=== PATIENT | female | born 1975 | race Caucasian/White ===

== ENCOUNTER 2017-08-10 14:08 | Emergency (ER) | payer OTHER, SELFPAY ==
[2017-08-10 15:31] VITALS: BP 131/82; PULSE 68; RESP 18; TEMP 36.6; O2SAT 99; BMI 28.2
[2017-08-10 15:59] LABS: UTC Influenza A Antigen Negative (Negative); UTC Influenza B Antigen Negative (Negative)
--- NOTE | 2017-08-10 16:06 | HMH.EDUTC ---
[facility] Disposition Clinical Impression: Upper respiratory infection Qualifiers: URI type: unspecified URI Qualified Code(s): J06.9 - Acute upper respiratory infection, unspecified Disposition: Home, Self-Care Condition on Discharge: Good Instructions: Sore Throat, Cough Additional Instructions: * Monitor Temp. Tylenol and/or Ibuprofen as needed. ER if fever is no less than 101 despite alternating Tylenol and Ibuprofen * Encourage fluids, water, Gatorade, powerade, pedialyte if infant/toddler/or child * Warm salt water gargles for throat irritation *Warm fluids *Sore throat lozenges *Sleep elevated *humidifier or vaporizer Lots of rest Increase fluids, water, Gatorade, powerade *Bromfed may cause drowsiness. Know how it effect you or your child. Before driving, caring for small children or sending your child to school *Your throat swab was sent to lab for culture. Those results area typically sent to your primary care physician. Be sure to follow up in 2-3 days if no improvement so they can review those results and treat if necessary If you dont have primary care I recommend you get one, but in the mean time you will have to return to a walk in clinic Follow up IMMEDIATELY for new or worsening of symptoms OR no noticeable improvement over the next 48-72 hours. 911 immediately for any life threatening symptoms such as chest pain or difficulty breathing Prescriptions: cephALEXin [Keflex 500mg Cap] 500 mg PO BID #20 cap Dextromethorphan Polistirex [Delsym] 10 ml PO Q12H PRN #200 heron.er.12h PRN Reason: Cough Referrals: Willie Ragland MD [Primary Care Provider] - Medical Decision Making Vital Signs: 08/10/17 15:31 Temperature 97.8 F Temperature Source Temporal Artery Scan Pulse Rate [Right] 68 Respiratory Rate 18 Blood Pressure [Right Arm] 131/82 Blood Pressure Mean [Right Arm] 98 Blood Pressure Source [Right Arm] Automatic Cuff Blood Pressure Position [Right Arm] Sitting 02 Sat by Pulse Oximetry 99 Oxygen Delivery Method Room Air - Lab Data Lab Results 08/10/17 15:36: Influenza Type A Ag Negative, Influenza Type B Ag Negative, Strep Scn Rapid [facility] Orders (Tests/Meds): ORDERS Category Date Time Status Strep Screen Confirmation Stat Micro 08/10/17 15:36 Received - Vinicius Inquiry Pt receiving controlled substance: No Vinicius was queried for this patient: No [facility] HPI - General Stated complaint: sore throat headache sinus Mode of Arrival: Ambulatory Source of Information: Patient Limitations: No Limitations Description of Symptoms (Recalled from Triage Doc. by RN): COUGH, CONGESTION SORE THROAT X3 DAYS, RECENT BACTRIM HEENT Symptoms (Recalled from RN notes): Yes Resp Symptoms (Recalled from RN notes): No Skin Symptoms (Recalled from RN notes): No MS Symptoms (Recalled from RN notes): No Functional Status (Recalled from RN notes): N - History of Present Illness Provider Complaint: Patient states that she has been having upper respiratory symptoms State that she thinks she has sore throat, hurts when she swallow, pain and pressure in her sinsuses and over all not feeling well - Related Data Previous Rx's Medication Instructions Recorded Dextromethorphan Polistirex 10 ml PO Q12H PRN #200 heron.er.12h 08/10/17 [Delsym] cephALEXin [Keflex 500mg Cap] 500 mg PO BID #20 cap 08/10/17 Allergies Allergy/AdvReac Type Severity Reaction Status Date / Time No Known Allergies Allergy Unverified 07/26/17 14:32 - Worker's Comp Is this a Worker's Comp case?: No [facility] History - *Social History Alcohol Intake: never - Psychiatric History Expresses thoughts of harming self/others: None Suicide Plan Description: No Plan - Constitutional Reports chills, Reports fever(s) - ENT Reports nasal congestion, Reports sinus pain - Respiratory Reports cough Physical Exam - General General appearance: alert, in no apparent distress - Expanded ENT Exam Comment:
--- NOTE | 2017-08-10 16:10 | ED_ITS ---
[facility] [place] Dis[place] Clinical Impression: Upper respiratory infection Qualifiers: URI type: unspecified URI Qualified Code(s): J06.9 - Acute upper respiratory infection, unspecified Disposition: Home, Self-Care Condition on Discharge: Good Instructions: Sore Throat, Cough Additional Instructions: * Monitor Temp. Tylenol and/or Ibuprofen as needed. ER if fever is no less than 101 despite alternating Tylenol and Ibuprofen * Encourage fluids, water, Gatorade, powerade, pedialyte if infant/toddler/or child * Warm salt water gargles for throat irritation *Warm fluids *Sore throat lozenges *Sleep elevated *humidifier or vaporizer Lots of rest Increase fluids, water, Gatorade, powerade *Bromfed may cause drowsiness. Know how it effect you or your child. Before driving, caring for small children or sending your child to school *Your throat swab was sent to lab for culture. Those results area typically sent to your primary care physician. Be sure to follow up in 2-3 days if no improvement so they can review those results and treat if necessary If you don? t have primary care I recommend you get one, but in the mean time you will have to return to a walk in clinic Follow up IMMEDIATELY for new or worsening of symptoms OR no noticeable improvement over the next 48-72 hours. 911 immediately for any life threatening symptoms such as chest pain or difficulty breathing Prescriptions: cephALEXin [Keflex 500mg Cap] 500 mg PO BID #20 cap Dextromethorphan Polistirex [Delsym] 10 ml PO Q12H PRN #200 heron.er.12h PRN Reason: Cough Referrals: Willie Ragland MD [Primary Care Provider] - Medical Decision Making Vital Signs: 08/10/17 15:31 Temperature 97.8 F Temperature Source Temporal Artery Scan Pulse Rate [Right] 68 Respiratory Rate 18 Blood Pressure [Right Arm] 131/82 Blood Pressure Mean [Right Arm] 98 Blood Pressure Source [Right Arm] Automatic Cuff Blood Pressure Position [Right Arm] Sitting 02 Sat by Pulse Oximetry 99 Oxygen Delivery Method Room Air - Lab Data Lab Results 08/10/17 15:36: Influenza Type A Ag Negative, Influenza Type B Ag Negative, Strep Scn Rapid Clinic [facility] Orders (Tests/Meds): ORDERS Category Date Time Status Strep Screen Confirmation Stat Micro 08/10/17 15:36 Received - Vinicius Inquiry Pt receiving controlled substance: No Vinicius was queried for this patient: No [facility] [place] HPI - General Stated complaint: sore throat headache sinus Mode of Arrival: Ambulatory Source of Information: Patient Limitations: No Limitations Description of Symptoms (Recalled from Triage Doc. by RN): COUGH, CONGESTION SORE THROAT X3 DAYS, RECENT BACTRIM HEENT Symptoms (Recalled from RN notes): Yes Resp Symptoms (Recalled from RN notes): No Skin Symptoms (Recalled from RN notes): No MS Symptoms (Recalled from RN notes): No Functional Status (Recalled from RN notes): N - History of Present Illness Provider Complaint: Patient states that she has been having upper respiratory symptoms State that she thinks she has sore throat, hurts when she swallow, pain and pressure in her sinsuses and over all not feeling well - Related Data Previous Rx's Medication Instructions Recorded Dextromethorphan Polistirex 10 ml PO Q12H PRN #200 heron.er.12h 08/10/17 [Delsym] cephALEXin [Keflex 500mg Cap] 500 mg PO BID #20 cap 08/10/17 Allergies
== END 2017-08-10 16:34 | disposition home or self-care (01) ==
PROVIDERS: Emergency Provider Nurse Practitioner; Family Provider Emergency Medicine; PCP Emergency Medicine
DX: J06.9 Acute upper respiratory infection, unspecified (principal); N63.20 Unspecified lump in the left breast, unspecified quadrant
CPT/HCPCS: 87276; 87430; 87804; 87880; 99202

== ENCOUNTER → 2020-11-19 12:38 | Outpatient (CLI) | payer MEDICAID, SELFPAY ==
--- NOTE | 2020-11-19 12:38 | MM_ITS ---
PROCEDURE: MM DIG SCREENING MAMM BI W/CAD Digital Breast Tomosynthesis Included CLINICAL INDICATION: screening xmg There is no personal or family history of breast cancer. There has been a previous biopsy left breast for benign disease. Patient complains of a possible fullness superior left breast which was marked with a skin marker COMPARISON: MG MAMMO DIAGNOSTIC DIGITAL TOMOSYNTHESIS LEFT W CAD from 07/16/2016 MG MAMMO DIAGNOSTIC DIGITAL TOMOSYNTHESIS BILATERAL W CAD from 09/30/2017 MG MAMMO DIAGNOSTIC DIGITAL TOMOSYNTHESIS BILATERAL W CAD from 05/15/2019 outside film TECHNIQUE: Standard CC and MLO images and 3D Tomosynthesis was obtained. R2 CAD reviewed. FINDINGS: Prominent diffuse somewhat heterogenic density seen throughout both breasts lessening the sensitivity of mammography. There is a mole marker near the axillary tail right breast. A skin marker was placed superior left breast at the site of the patient's complaint and I see no underlying mass or architectural distortion. There are no CAD markings. There is a biopsy clip 6 o'clock position left breast. There is a possible new lesion just above the nipple right breast at the 12 o'clock position best seen on egovanna images. It has somewhat irregular borders best appreciated on the CC view. Recommend the patient return for spot compression views and ultrasound of the lesion marked on the film for additional evaluation. There are no suspicious microcalcifications. IMPRESSION: Marked and diffuse breast density with possible new lesion right breast BI-RAD Category: 0 Need Additional Imaging Evaluation FOLLOW-UP: IMM Immediate Follow-up Recommended (A letter has been sent to the patient regarding results of the study.) Dictated by: Dr. Pa Qiu MD 11/21/2020 12:21 Dr. aP Qiu MD in [place] 11/21/2020 12:21
== END ==
PROVIDERS: PCP Physician Assistant; Visit Provider Nurse Practitioner Obstetrics & Gynecology
DX: Z12.31 Encounter for screening mammogram for malignant neoplasm of breast (principal)
CPT/HCPCS: 77063; 77067

== ENCOUNTER → 2020-12-22 14:37 | Outpatient (CLI) | payer MEDICAID, SELFPAY ==
--- NOTE | 2020-12-22 14:37 | US_ITS ---
PROCEDURE: MM DIG MAMM BI DX W/CAD Digital Breast Tomosynthesis Included CLINICAL INDICATION: abnormal xmg Follow-up abnormal mammogram COMPARISON: US BL US BREAST-LT COMPLETE W/AXILLA from 06/18/2016 US US BREAST LEFT COMPLETE from 07/16/2016 US US BREAST BILATERAL LIMITED from 09/30/2017 MG MAMMO DIAGNOSTIC DIGITAL TOMOSYNTHESIS BILATERAL W CAD from 09/30/2017 MG MAMMO DIAGNOSTIC DIGITAL TOMOSYNTHESIS BILATERAL W CAD from 05/15/2019 MG MM DIG SCREENING MAMM BI W/CAD from 11/19/2020 US US BREAST LT COMPLETE from 12/22/2020 US US BREAST RT COMPLETE from 12/22/2020 TECHNIQUE: Standard CC and MLO images and 3D Tomosynthesis was obtained. R2 CAD reviewed. FINDINGS: There is very dense breast tissue bilaterally which limits the sensitivity of mammography. Right breast: The area marked on the screening mammogram appears to compress out as fibroglandular tissue. On the CC view there is a 12 mm nodular density in the central aspect of the breast in the posterior 1/3 similar to the screening mammogram and may correspond to 1 of the cyst mention below. Right breast ultrasound: Numerous small cysts are present including a 6 mm cyst at 12 o'clock and a cluster of small cyst versus dilated ducts at 12 o'clock. 7 mm cyst is also noted at 12 o'clock near the nipple and a 4 mm cyst noted at 12 o'clock near the nipple. At 1 o'clock there is a complicated cyst at 14 mm x 5 mm. At 2 o'clock there are 2 cyst measuring 7 and 8 mm. At 3 o'clock there is a 6 mm cyst and a complicated 8 mm cyst with septations. At 6 o'clock there is a 12 x 8 mm complicated cyst. At 8 o'clock there is a 6 mm complicated cyst at 9 o'clock there is a 12 mm complicated cyst. At 10 o'clock there is an 11 mm complicated cyst. At 11 o'clock there is a 13 mm complicated cyst. Left breast: Very dense fibroglandular tissue. No malignant appearing mass or malignant-appearing microcalcification. There are numerous fairly well-circumscribed nodules which may correspond to cyst mention below in the ultrasound report. A 2 cm nodule is present in the 1 o'clock region. This may correspond to a cyst noted on ultrasound. In the retroareolar region there is a 17 mm nodule and in the middle 1/3 left breast there is a 12 mm nodule. Left breast ultrasound: 6 mm cyst at 12 o'clock. 7 mm cyst at 12 o'clock near the nipple. 2.4 cyst in the periareolar region at 12 o'clock. 10 mm cyst at 1 o'clock. At 2 o'clock there is a hypoechoic heterogeneous nodule well-circumscribed wider than tall with enhanced through transmission of sound. This is not demonstrated on previous ultrasounds of the left breast of 07/16/2016 and 02/15/2017 outside exams. 10 mm cyst noted at 2 o'clock. 18 mm cyst at 2 o'clock. 2 cm cyst at 3 o'clock near the nipple. 2.3 cm cyst at 6 o'clock near the nipple. 5 mm cyst at 7 o'clock. Hypoechoic nodule at 8 o'clock which may represent a complicated cyst at 8 mm. 7 mm cyst at 8 o'clock. Complicated cyst at 9 o'clock at 11 mm. 8 mm hypoechoic nodule at 9 o'clock possibly due to a complicated cyst. Two small cysts at 10 o'clock at 7 and 6 mm. 2 cm cyst at 11 o'clock. IMPRESSION: Numerous bilateral complicated cysts. There is however a solid-appearing nodule at 2 o'clock in the left breast not previously identified. Ultrasound-guided mammotome suggested. BI-RAD Category: 4 Suspicious Abnormality-Biopsy Considered FOLLOW-UP: BIO Biopsy Recommended (A letter has been sent to the patient regarding results of the study.) Dictated by: Nixon Hickman MD 12/26/2020 09:07 Nixon Hickman MD in [place] 12/26/2020 09:07
== END ==
PROVIDERS: PCP Physician Assistant; Visit Provider Nurse Practitioner Obstetrics & Gynecology
DX: R92.8 Other abnormal and inconclusive findings on diagnostic imaging of breast (principal)
CPT/HCPCS: 76641; 77062; 77066; G0279

== ENCOUNTER → 2021-02-04 09:25 | Outpatient (CLI) | payer MEDICAID, SELFPAY ==
--- NOTE | 2021-02-04 09:25 | US_ITS ---
PROCEDURE: US MAMMOTOME BX LT POST BIOPSY MAMMOGRAM CLINICAL INDICATION: Suspicious nodule left breast at 2 o'clock, abnormal ultrasound COMPARISON: MG MM DIG SCREENING MAMM BI W/CAD from 11/19/2020 MG MM CLIP PLACEMENT LT from 02/04/2021 FINDINGS: Following obtaining informed consent under aseptic conditions and local anesthesia with 1 percent buffered lidocaine and deeper anesthesia with lidocaine mixed with epinephrine, 10 gauge mammotome needle was directed into the solid nodule in the left breast at 2 o'clock. Multiple mammotome biopsies were obtained and a clip placed. The patient tolerated the procedure well without evidence of immediate complication and left radiology suite in stable condition. POST BIOPSY MAMMOGRAM was performed demonstrating the clip the in the outer aspect of the left breast at the 2 to 3 o'clock position anterior 1/3. There is diffuse increased density of the periareolar region as before. An additional clip was noted to be at the 7 o'clock region of the left breast anterior 1/3 as before. Pathology: Benign breast with fibrocystic changes including cystic dilatation of ducts with changes suggestive of ruptured cyst/duct ectasia Pseudoangiomatous stromal hyperplasia. Negative for malignancy IMPRESSION: Uneventful ultrasound-guided biopsy of the left breast showing benign findings with no evidence of malignancy. Pseudoangiomatous stromal hyperplasia was present. Recommend six-month ultrasound follow-up of the left breast regarding the pseudoangiomatous stromal hyperplasia Dictated by: Nixon Hickman MD 02/11/2021 12:27 Nixon Hickman MD in [place] 02/11/2021 12:27
== END ==
PROVIDERS: PCP Physician Assistant; Visit Provider Nurse Practitioner Obstetrics & Gynecology
DX: R92.8 Other abnormal and inconclusive findings on diagnostic imaging of breast (principal); N64.59 Other signs and symptoms in breast; N63.20 Unspecified lump in the left breast, unspecified quadrant
CPT/HCPCS: 19083; 77065; C2618

== ENCOUNTER → 2021-04-13 12:38 | Outpatient (CLI) | payer MEDICAID, SELFPAY | PROVIDERS: PCP Physician Assistant; Visit Provider Nurse Practitioner | DX: Z20.822 Contact with and (suspected) exposure to COVID-19 (principal); U07.1 COVID-19 | CPT/HCPCS: U0003 ==

== ENCOUNTER 2021-04-20 17:27 | Emergency (ER) | payer MEDICAID, SELFPAY ==
[2021-04-20 17:28] VITALS: BP 133/62; PULSE 95; RESP 16; TEMP 37.8; O2SAT 96; BMI 29.7
--- NOTE | 2021-04-20 17:42 | XR_ITS ---
PROCEDURE INFORMATION: Exam: XR Chest Exam date and time: 04/20/2021 5:42 PM Age: 46 years old Clinical indication: Shortness of breath; Patient HX: SOA; Covid x 19 days; Non-smoker; Additional info: SOB TECHNIQUE: Imaging protocol: XR of the chest. Views: 1 view. COMPARISON: No relevant prior studies available. FINDINGS: Lungs: Bilateral patchy ground-glass and consolidative airspace opacities. Pleural spaces: No pleural effusion. No pneumothorax. Heart/Mediastinum: Cardiomediastinal silouhette is within normal limits. Bones/joints: No acute osseous abnormality. Soft tissues: Unremarkable. IMPRESSION: Bilateral patchy airspace opacities, compatible with multifocal pneumonia. Please see comments below. COMMENTS: Pulmonary findings described above are compatible with commonly reported imaging features of COVID-19 pneumonia. Other processes such as other viral pneumonias (i.e. influenza), organizing pneumonia, drug toxicity and connective tissue disease can cause a similar imaging pattern. (Reference: Shamar) REFERENCES: Shamar Salazar et al., Radiological Society of [place] Expert Consensus Statement on Reporting Chest CT Findings Related to COVID-19. Endorsed by the Society of Thoracic Radiology, the [place] [employer], and RSNA. Published October 31, 2019.
[2021-04-20 18:11] LABS: Basophils % 0.1 % (0.1-2.0); Eosinophils % 0.1 % (0.1-12.0); Hematocrit 44.6 % (37.0-47.0); Hemoglobin 14.1 g/dL (12.2-16.2); Lymphocytes # 1.3 K/mm3 (0.7-4.5); Lymphocytes % 10.3 % (10-50); Mean Corpuscular HGB Conc 31.5 g/dL (31.8-35.4); Mean Corpuscular Hemoglobin 27.3 pg (27.0-31.2); Mean Corpuscular Volume 86.5 fl (81-99); Monocytes # 0.5 K/mm3 (0.1-1.0); Monocytes % 3.9 % (1.7-9.3); Neutrophils # 10.4 K/mm3 (1.8-7.8); Neutrophils % 85.6 % (37.0-80.0); Platelet Count 278 K/mm3 (142-424); Red Blood Count 5.15 M/mm3 (4.20-5.40); Red Cell Distribution Width 13.1 % (11.5-17.5); White Blood Count 12.1 K/mm3 (4.8-10.8)
[2021-04-20 18:13] LABS: MANUAL DIFFERENTIAL MANUAL DIFFERENTIAL (MANUAL DIFF)
[2021-04-20 18:21] LABS: Chloride 102 mmol/L (98-107); Potassium 3.6 mmoL/L (3.5-5.1); Sodium 139 mmol/L (136-145)
[2021-04-20 18:23] LABS: Blood Urea Nitrogen 14 mg/dl (7-17); Creatinine Clearance Estimated 163 mL/min (50-200); Estimated Glomerular Filt Rate 109 ml/min (>60); GFR (African American) 131 ML/MIN (>60)
[2021-04-20 18:24] LABS: Alanine Aminotransferase 37 U/L (12-78); Albumin/Globulin Ratio 1.1 (1.1-1.8); Alkaline Phosphatase 77 U/L (38-126); Anion Gap 15.6 mEq/L (5-15); Aspartate Amino Transferase 35 U/L (14-36); Bilirubin,Total 0.5 mg/dl (0.2-1.3); Calcium 8.9 mg/dl (8.4-10.2); Carbon Dioxide 25 mmol/L (22.0-30.0); Globulin 3.6 g/dL (1.3-3.2); Glucose 146 mg/dl (74-100); Total Protein,Serum 7.6 g/dl (6.3-8.2)
--- NOTE | 2021-04-20 18:59 | HMH.EDGENADL ---
ED Disposition Clinical Impression: Pneumonia due to COVID-19 virus Disposition: Home, Self-Care Condition on Discharge: Good Additional Instructions: Follow-up with your PCP tomorrow regarding monoclonal antibody treatment. Return to emergency department for fever, shortness of breath, chest pain. Prescriptions: Amoxicillin [Amoxicillin 875MG Tab] 875 mg PO Q12H #14 tab Transmission Status: Pending to [facility] Referrals: Luba Soto PA [Primary Care Provider] - Time of Disposition: 19:03 - Critical Care Critical Care Time: No Attestation: On 04/20/21, the high probability of a clinically significant, sudden or life threatening deterioration of the following system(s) required my full and direct attention, intervention and personal management. The time I documented below is in addition to time spent performing reported procedures but includes the following listed in this critical care notation. Medical Decision Making - Medical Records Medical records reviewed: Yes: I reviewed the patient's medical records. - Vinicius Inquiry Pt receiving controlled substance: No Vital Signs: 04/20/21 17:28 Temperature 100.1 F H Temperature Source Oral Pulse Rate [Right] 95 H Respiratory Rate 16 Blood Pressure [Right Arm] 133/62 Blood Pressure Mean [Right Arm] 85 02 Sat by Pulse Oximetry 96 Oxygen Delivery Method Room Air - Lab Data Lab results reviewed: Yes: I reviewed the patient's lab results. Lab Results 04/20/21 17:55: WBC 12.1 H, RBC 5.15, Hgb 14.1, Hct 44.6, MCV 86.5, MCH 27.3, MCHC 31.5 L, RDW 13.1, Plt Count 278, MPV 8.0, Neut % (Auto) 85.6 H, Lymph % (Auto) 10.3, [place] % (Auto) 3.9, Eos % (Auto) 0.1, Baso % (Auto) 0.1, Neut # (Auto) 10.4 H, Lymph # (Auto) 1.3, [place] # (Auto) 0.5, Eos # (Auto) 0.0, Baso # (Auto) 0.0 04/20/21 17:55: Sodium 139, Potassium 3.6, Chloride 102, Carbon Dioxide 25, Anion Gap 15.6 H, BUN 14, Creatinine 0.60, Estimated Creat Clear 163, Estimated GFR 109, Est GFR ( Amer) 131, Glucose 146 H, Calcium 8.9, Total Bilirubin 0.5, AST 35, ALT 37, Alkaline Phosphatase 77, Total Protein 7.6, Albumin 4.0, Globulin 3.6 H, Albumin/Globulin Ratio 1.1 Result diagrams: 04/20/21 17:55 04/20/21 17:55 Orders (Tests/Meds): ED MEDICATIONS Generic Name Dose Route Start Last Admin Trade Name Alexandra PRN Reason Stop Dose Admin Lactated Ringer's 1,000 mls @ 999 mls/hr 04/20/21 17:45 04/20/21 17:51 Lactated Ringer's 1000 Ml Bag IV 04/20/21 18:45 999 mls/hr .[id number] JANES Administration ORDERS Category Date Time Status Complete Blood Count Auto Diff Stat Lab 04/20/21 17:55 Results - Radiology Data #1 Image(s): Chest Image Reviewed: Yes I reviewed the patient's radiology results Preliminary Findings: Abnormal (Concern for Covid pneumonia) Medical Decision Narrative: 46yo F evaluated for worsening shortness of breath with known Covid. Patient's x-ray is concerning for Covid pneumonia. Laboratory results reveal white blood cell count of 12. Otherwise labs are unremarkable. Patient is already completed a Z-Fish. Will prescribe amoxicillin and have her follow-up with her PCP. Also discussed monoclonal antibodies but the patient would like time to think about this and discuss it with her PCP. General Adult HPI - General Chief complaint: Fever Stated complaint: covid + symptoms worse Time Seen by Provider: 04/20/21 18:30 Mode of Arrival: Ambulatory Limitations: No Limitations Description of Symptoms (Recalled from ER Triage Doc. by RN): COVID+ X10 DAYS, C/O INCREASED WEAKNESS, FEVER & CHILLS. DENIES SOB/CP - History of Present Illness HPI narrative: 46yo F that denies significant past medical history reports the emergency department with Covid. Patient test positive around . She felt more short of breath so came to the emergency department for further evaluation. She denies fever, nausea/vomiting/diarrhea. She repo
[2021-04-20 19:11] VITALS: BP 125/71; PULSE 90; RESP 20; TEMP 37.8; O2SAT 96
[2021-04-20 19:22] LABS: Anisocytosis 1+; Lymphocytes % 6 % (10-50); Monocytes % 6 % (2-9); Neutrophils % 88 % (42-76); Platelet Estimate Normal; Total Cells Counted 100
== END 2021-04-20 19:12 | disposition home or self-care (01) ==
PROVIDERS: Emergency Provider Family Medicine; PCP Physician Assistant
DX: U07.1 COVID-19 (principal); J12.82 Pneumonia due to coronavirus disease 2019
CPT/HCPCS: 71045; 80053; 85007; 85025; 96365; 99283

== ENCOUNTER → 2021-04-21 14:06 | Outpatient (CLI) | payer MEDICAID, SELFPAY ==
[2021-04-21] VITALS (7 sets, daily range): BP systolic 110–134; BP diastolic 50–84; PULSE 72–94; RESP 18; O2SAT 94–96
== END ==
PROVIDERS: PCP Physician Assistant; Visit Provider Physician Assistant
DX: U07.1 COVID-19 (principal)
CPT/HCPCS: 96365

== ENCOUNTER → 2021-05-05 14:31 | Outpatient (CLI) | payer MEDICAID, SELFPAY ==
--- NOTE | 2021-05-05 14:35 | XR_ITS ---
PROCEDURE: XR CHEST 2V CLINICAL HISTORY: f/u pneumonia (COVID + /6) COMPARISON: CR XR CHEST PORTABLE from 04/20/2021 FINDINGS: The cardiomediastinal silhouette and pulmonary vascularity are within normal limits. Multifocal bilateral infiltrates once again noted with a mixed response slightly improved in the right lower lobe and probably unchanged in the right upper lobe and left perihilar region. There are some minimal atelectatic changes now present in the right upper lobe. No effusions. No acute bony abnormalities. IMPRESSION: Bilateral pneumonia slightly improved in the right lower lobe and unchanged otherwise now with some mild atelectatic change in the right upper lobe Dictated by: Nixon Hickman MD 05/05/2021 15:10 Nixon Hickman MD in [place] 05/05/2021 15:10
== END ==
PROVIDERS: PCP Physician Assistant; Visit Provider Physician Assistant
DX: U07.1 COVID-19 (principal); J12.82 Pneumonia due to coronavirus disease 2019
CPT/HCPCS: 71046

== ENCOUNTER → 2021-08-11 14:46 | Outpatient (CLI) | payer MEDICAID, SELFPAY ==
--- NOTE | 2021-08-11 14:47 | US_ITS ---
PROCEDURE INFORMATION: Exam: US Left Breast, Complete Exam date and time: 08/11/2021 2:47 PM Age: 46 years old Clinical indication: Short-term follow-up for benign biopsy TECHNIQUE: Imaging protocol: Complete ultrasound of all four quadrants of the Left breast and the retroareolar regions, including ultrasound of the axilla when performed. COMPARISON: 1. US BREAST LT COMPLETE 12/22/2020 3:03 PM 2. Sonogram dated 07/16/2016 FINDINGS: Breast: Sonographic images of the left breast including the retroareolar region, all 4 quadrants and the axilla demonstrates widespread cystic change. The cysts range in size from several mm to a termite control service representative dominant cyst in the 2 o'clock axis measuring 1.8 cm in greatest dimension. Sleep previously biopsied left upper outer quadrant mass is not seen today's examination. In the left 12 o'clock periareolar region is a long-term stable and therefore benign hypoechoic mass measuring 0.6 x 0.5 x 0.4 cm in dimension. No architectural distortion or acoustical shadowing. No skin thickening or axillary adenopathy. IMPRESSION: No sonographic evidence of malignancy. Annual mammographic screening is recommended in November 2021 unless otherwise clinically indicated. ASSESSMENT: BI-RADS Category 2: Benign
== END ==
PROVIDERS: PCP Physician Assistant; Visit Provider Surgery
DX: N64.89 Other specified disorders of breast (principal)
CPT/HCPCS: 76641

== ENCOUNTER 2021-11-06 15:06 | Emergency (ER) | payer MEDICAID, SELFPAY ==
[2021-11-06 15:15] VITALS: BP 137/81; PULSE 91; RESP 19; TEMP 36.8; O2SAT 98; BMI 32.1
[2021-11-06 15:37] LABS: UTC Influenza A Antigen Negative (Negative); UTC Influenza B Antigen Negative (Negative)
--- NOTE | 2021-11-06 15:38 | HMH.EDUTC ---
[facility] [place] Clinical Impression: Upper respiratory infection Qualifiers: URI type: unspecified URI Qualified Code(s): J06.9 - Acute upper respiratory infection, unspecified Disposition: Home, Self-Care Condition on Discharge: Good Instructions: DI for Sinusitis, Sinusitis, Azithromycin Additional Instructions: *Monitor Temp, Over the counter Motrin or Tylenol as directed/as needed Tylenol every 4 hours and Motrin every 6 hours (as long as your family doctor has told you that you can take it) for fever or pain. and straight to ER if unable to lower temp less than 101.0 after medication given *Warm salt water gargles may help to soothe the throat *Throat Lozenges *Warm fluids like tea with honey may help to soothe the throat *Sleep elevated *Humidifier/Vaporizer *Flonase 2 sprays in each nostril daily but be aware that it may take 2-3 days before you notice improvement Take medication as prescribed Return if needed Straight to ER if any life threatening symptoms Follow up IMMEDIATELY for new or worsening symptoms or no Noticeable improvement over the next 48-72 hours. 911 for difficulty breathing or swallowing Prescriptions: predniSONE [Deltasone 10mg tablet] 10 mg PO BID 5 Days #10 tab Transmission Status: Pending to [facility] Azithromycin [Z-Fish 250mg Tab] 250 mg PO DIRECTED #6 tab Transmission Status: Pending to [facility] Referrals: Luba Soto PA [Primary Care Provider] - As needed Time of Disposition: 15:44 Medical Decision Making - Vinicius Inquiry Pt receiving controlled substance: No Vinicius was queried for this patient: No Vital Signs: 11/06/21 15:15 Temperature 98.3 F Temperature Source Oral Pulse Rate [Right Brachial] 91 H Respiratory Rate 19 Blood Pressure [Right Arm] 137/81 Blood Pressure Mean [Right Arm] 99 Blood Pressure Source [Right Arm] Automatic Cuff Blood Pressure Position [Right Arm] Sitting 02 Sat by Pulse Oximetry 98 Oxygen Delivery Method Room Air - Lab Data Lab results reviewed: Yes: I reviewed the patient's lab results. Lab Results 11/06/21 15:13: Influenza Type A Ag Negative, Influenza Type B Ag Negative [facility] [place] - General Stated complaint: sore throat, cough, congestion Time Seen by Provider: 11/06/21 15:38 Mode of Arrival: Ambulatory Source of Information: Patient Limitations: No Limitations Description of Symptoms (Recalled from Triage Doc. by RN): PATIENT C/O SORE THROAT, COUGH, RUNNY NOSE, CHEST CONGESTION, AND BACK ACHE X 2 DAYS HEENT Symptoms (Recalled from RN notes): Yes Resp Symptoms (Recalled from RN notes): Yes Skin Symptoms (Recalled from RN notes): No MS Symptoms (Recalled from RN notes): No Functional Status (Recalled from RN notes): WNL - History of Present Illness Provider Complaint: Patient state that she has been having sinus pain and pressure for about a week States that she has been having cough, sore throat, sinus congestion and pressure cough States that she is having drainage in the back of her throat that has her throat irritated and ibarra when she coughs or takes a deep breath - Related Data Previous Rx's Medication Instructions Recorded Azithromycin [Z-Fish 250mg Tab] 250 mg PO DIRECTED #6 tab 11/06/21 predniSONE [Deltasone 10mg tablet] 10 mg PO BID 5 Days #10 tab 11/06/21 Allergies Allergy/AdvReac Type Severity Reaction Status Date / Time No Known Allergies Allergy Verified 08/26/21 15:03 - Worker's Comp Is this a Worker's Comp case?: No [facility] History - Hepatitis A Screen Drug use history?: No High risk sexual behaviors?: No History of sexually transmitted infection?: No Currently employed?: No Childcare worker?: No Do you have indoor plumbing?: Yes Do you have electricity?: Yes Attestation statement:: This patient has been screened for Hepatitis A risk factors. I have reviewed the patient's past medical history: Yes Laterality Cases: Left: B
[2021-11-06 15:49] VITALS: BP 137/81; PULSE 91; RESP 19; TEMP 36.8; O2SAT 98
== END 2021-11-06 15:58 | disposition home or self-care (01) ==
PROVIDERS: Emergency Provider Nurse Practitioner; PCP Physician Assistant
DX: J06.9 Acute upper respiratory infection, unspecified (principal); J02.9 Acute pharyngitis, unspecified; Z87.891 Personal history of nicotine dependence
CPT/HCPCS: 87804; 99212; G0463

== ENCOUNTER → 2021-11-26 15:51 | Outpatient (CLI) | payer MEDICAID, SELFPAY ==
--- NOTE | 2021-11-26 15:57 | ECG_ITS ---
APPROVED REPORT Exam: Resting ECG HR:91 bpm ECG Measurements Heart Rate 91 AXES TX 143 P 47 QRSd 93 QRS 80 QT 339 T 6 QTc 388 Conclusion SINUS RHYTHM NONSPECIFIC T-WAVE ABNORMALITY BORDERLINE ECG UNCONFIRMED REPORT Electronically signed by : Kike Esteban MD 11/28/2021 12:19:53
--- NOTE | 2021-11-26 16:00 | XR_ITS ---
PROCEDURE INFORMATION: Exam: XR Chest Exam date and time: 11/26/2021 4:01 PM Age: 46 years old Clinical indication: Cough; Additional info: Chest pain, h/o covid in sept TECHNIQUE: Imaging protocol: XR of the chest. Views: 2 views. COMPARISON: CR XR CHEST 2V 05/05/2021 2:44 PM FINDINGS: Lungs: Hyperinflation and mild interstitial prominence. No acute infiltrate. Pleural spaces: No pleural effusion. Heart/Mediastinum: No cardiomegaly. Bones/joints: Unremarkable. IMPRESSION: Hyperinflation and mild interstitial prominence. No acute infiltrate.
[2021-11-26 17:49] LABS: Alanine Aminotransferase 22 U/L (12-78); Albumin Level 4.4 g/dl (3.5-5.0); Albumin/Globulin Ratio 1.8 (1.1-1.8); Alkaline Phosphatase 89 U/L (38-126); Anion Gap 13.5 mEq/L (5-15); Aspartate Amino Transferase 27 U/L (14-36); Bilirubin,Total 0.5 mg/dl (0.2-1.3); Blood Urea Nitrogen 19 mg/dl (7-17); Calcium 9.1 mg/dl (8.4-10.2); Carbon Dioxide 23 mmol/L (22.0-30.0); Chloride 107 mmol/L (98-107); Chol/HDL Ratio 6.2 (1-3.5); Cholesterol 237 mg/dl (140-200); Estimated Glomerular Filt Rate 109 ml/min (>60); GFR (African American) 131 ML/MIN (>60); Globulin 2.4 g/dL (1.3-3.2); Glucose 129 mg/dl (74-100); HDL Cholesterol 38 mg/dl (40-60); Potassium 3.5 mmoL/L (3.5-5.1); Sodium 140 mmol/L (136-145); Total Protein,Serum 6.8 g/dl (6.3-8.2); Triglycerides 154 mg/dl (30-150); VLDL Cholesterol 31 mg/dL (0-40)
[2021-11-26 18:01] LABS: Basophils # 0.1 K/mm3 (0-0.2); Basophils % 0.6 % (0.1-2.0); Eosinophils # 0.1 K/mm3 (0.0-0.4); Eosinophils % 1.6 % (0.1-12.0); Hematocrit 43.3 % (37.0-47.0); Hemoglobin 14.1 g/dL (12.2-16.2); Lymphocytes # 1.8 K/mm3 (0.7-4.5); Lymphocytes % 20.8 % (10-50); Mean Corpuscular HGB Conc 32.7 g/dL (31.8-35.4); Mean Corpuscular Hemoglobin 28.6 pg (27.0-31.2); Mean Corpuscular Volume 87.7 fl (81-99); Mean Platelet Volume 9.1 fl (7.4-10.4); Monocytes # 0.5 K/mm3 (0.1-1.0); Monocytes % 5.8 % (1.7-9.3); Neutrophils # 6.2 K/mm3 (1.8-7.8); Neutrophils % 71.2 % (37.0-80.0); Platelet Count 281 K/mm3 (142-424); Red Blood Count 4.94 M/mm3 (4.20-5.40); Red Cell Distribution Width 13.6 % (11.5-17.5); White Blood Count 8.8 K/mm3 (4.8-10.8)
[2021-11-26 18:08] LABS: 25-OH Vitamin D, Total 25.6 ng/mL (30-100)
[2021-11-26 18:21] LABS: Thyroid Stimulating Hormone 0.69 uIU/mL (0.465-4.68)
[2021-11-26 18:40] LABS: Vitamin B12 660 pg/mL (239-931)
== END ==
PROVIDERS: PCP Physician Assistant; Visit Provider Physician Assistant
DX: R07.9 Chest pain, unspecified (principal); R22.1 Localized swelling, mass and lump, neck; E55.9 Vitamin D deficiency, unspecified
CPT/HCPCS: 71046; 80053; 80061; 82306; 82607; 84443; 85025; 93005

== ENCOUNTER → 2021-11-26 16:45 | Outpatient (CLI) | payer MEDICAID, SELFPAY ==
[2021-11-27 09:35] LABS: Hemoglobin A1C 5.4 % (4.0-6.0)
== END ==
PROVIDERS: PCP Physician Assistant; Visit Provider Physician Assistant
DX: R73.09 Other abnormal glucose (principal)
CPT/HCPCS: 83036

== ENCOUNTER 2021-12-09 22:28 | Emergency (ER) | payer MEDICAID, SELFPAY ==
[2021-12-09 22:30] VITALS: BP 178/88; PULSE 78; RESP 16; TEMP 37; O2SAT 98; BMI 30.4
--- NOTE | 2021-12-09 22:36 | ECG_ITS ---
APPROVED REPORT Exam: Resting ECG HR:93 bpm ECG Measurements Heart Rate 93 AXES [place] 149 P 56 QRSd 99 QRS 71 QT 340 T 52 QTc 391 Conclusion SINUS RHYTHM NORMAL ECG UNCONFIRMED REPORT Electronically signed by : Kike Esteban MD 12/10/2021 10:14:47
--- NOTE | 2021-12-09 22:54 | CT_ITS ---
PROCEDURE INFORMATION: Exam: CT Abdomen And Pelvis Without Contrast Exam date and time: 12/09/2021 11:18 PM Age: 46 years old Clinical indication: Abdominal pain; Localized; Right upper quadrant (ruq); Additional info: Right upper quad pain TECHNIQUE: Imaging protocol: Computed tomography of the abdomen and pelvis without contrast. Radiation optimization: All CT scans at this facility use at least one of these dose optimization techniques: automated exposure control; mA and/or kV adjustment per patient size (includes targeted exams where dose is matched to clinical indication); or iterative reconstruction. COMPARISON: CR XR CHEST 2V 11/26/2021 4:01 PM FINDINGS: Liver: Normal. No mass. Gallbladder and bile ducts: Normal. No calcified stones. No ductal dilation. Pancreas: Normal. No ductal dilation. Spleen: Normal. No splenomegaly. Adrenal glands: Normal. No mass. Kidneys and ureters: Normal. No hydronephrosis. Stomach and bowel: Unremarkable. No obstruction. No mucosal thickening. Appendix: No evidence of appendicitis. Intraperitoneal space: Unremarkable. No free air. No significant fluid collection. Vasculature: Unremarkable. No abdominal aortic aneurysm. Lymph nodes: Unremarkable. No enlarged lymph nodes. Urinary bladder: Unremarkable as visualized. Reproductive: There is a complex hemorrhagic left ovarian cyst 4.7 cm. Bones/joints: Unremarkable. No acute fracture. Soft tissues: Unremarkable. IMPRESSION: 1. 4.7 cm hemorrhagic left ovarian cyst. 2. No additional acute findings in the abdomen pelvis
[2021-12-09 23:00] LABS: Microscopic, Urine URINE MICROSCOPIC (MICROSCOPIC)
[2021-12-09 23:08] LABS: Appearance,Urine CLEAR (Clear); Bilirubin,Urine Negative (Negative); Blood, Urine 2+ (Negative); Color,Urine YELLOW (Yellow); Glucose,Urine (UA) Negative (Negative); Ketones,Urine Negative (Negative); Leukocyte Esterase,Urine 1+ (Negative); Nitrate,Urine Negative (Negative); Protein,Urine Negative (Negative); Specific Gravity, Urine 1.025 (1.005-1.030); Urobilinogen,Urine 0.2 EU/dl (0.2)
[2021-12-09 23:09] LABS: Urine Pregnancy, HCG Qual. Negative (Negative)
--- NOTE | 2021-12-09 23:14 | HMH.EDNVD ---
ED Disposition Clinical Impression: Abdominal pain Qualifiers: Abdominal location: right upper quadrant Qualified Code(s): R10.11 - Right upper quadrant pain Disposition: Home, Self-Care Condition on Discharge: Good Instructions: DI for Acute Abdominal Pain Additional Instructions: call pcp for follow up Referrals: Luba Soto PA [Primary Care Provider] - - Critical Care Critical Care Time: No Attestation: On 12/09/21, the high probability of a clinically significant, sudden or life threatening deterioration of the following system(s) required my full and direct attention, intervention and personal management. The time I documented below is in addition to time spent performing reported procedures but includes the following listed in this critical care notation. Medical Decision Making - Medical Records Medical records reviewed: Yes: I reviewed the patient's medical records. - Vinicius Inquiry Pt receiving controlled substance: No Vital Signs: 12/09/21 22:30 Temperature 98.6 F Temperature Source Oral Pulse Rate [Right] 78 Respiratory Rate 16 Blood Pressure [Right Arm] 178/88 H Blood Pressure Mean [Right Arm] 118 Blood Pressure Source [Right Arm] Automatic Cuff Blood Pressure Position [Right Arm] Sitting 02 Sat by Pulse Oximetry 98 Oxygen Delivery Method Room Air - Lab Data Lab results reviewed: Yes: I reviewed the patient's lab results. Lab Results 12/09/21 22:48: Urine HCG, Qual Negative 12/09/21 22:56: Urine Color Yellow, Urine Appearance Clear, Urine pH 6.0, Ur Specific [place] 1.025, Urine Protein Negative, Urine Glucose (UA) Negative, Urine Ketones Negative, Urine Blood 2+, Urine Nitrate Negative, Urine Bilirubin Negative, Urine Urobilinogen 0.2, Ur Leukocyte Esterase 1+ A, Urine RBC 5-10, Urine WBC 3-5, Ur Squamous Epith Cells 3-5, Urine Bacteria 1+ 12/09/21 23:08: WBC 11.6 H, RBC 5.16, Hgb 14.7, Hct 46.8, MCV 90.7, MCH 28.5, MCHC 31.4 L, RDW 13.9, Plt Count 289, MPV 8.0, Neut % (Auto) 67.4, Lymph % (Auto) 24.0, [place] % (Auto) 6.2, Eos % (Auto) 2.4, Baso % (Auto) 3.6 H, Neut # (Auto) 7.8, Lymph # (Auto) 2.8, [place] # (Auto) 0.7, Eos # (Auto) 0.3, Baso # (Auto) 0.4 H 12/09/21 23:08: Sodium 137, Potassium 3.8, Chloride 103, Carbon Dioxide 26, Anion Gap 11.8, BUN 19 H, Creatinine 0.80, Estimated Creat Clear 129, Estimated GFR 78, Est GFR ( Amer) 94, Glucose 113 H, Calcium 9.7, Total Bilirubin 0.5, AST 29, ALT 23, Alkaline Phosphatase 107, C-Reactive Protein 9.1 H, Total Protein 7.3, Albumin 4.4, Globulin 2.9, Albumin/Globulin Ratio 1.5, Amylase 56, Lipase 95 Result diagrams: 12/09/21 23:08 12/09/21 23:08 Orders (Tests/Meds): ED MEDICATIONS Generic Name Dose Route Start Last Admin Trade Name Freq PRN Reason Stop Dose Admin Lactated Ringer's 1,000 mls @ 999 mls/hr 12/09/21 23:00 12/09/21 22:56 Lactated Ringer's 1000 Ml Bag IV 12/10/21 00:00 999 mls/hr .Q1H1M JANES Administration ORDERS Category Date Time Status Urine Culture Stat Micro 12/09/21 22:56 Received - CT Data CT Scan: Abdomen, Pelvis Time Received: 00:[address] Reviewed: Yes: I have viewed the radiologist's interpretation Preliminary Findings: Abnormal - ECG Data Tracing #1 Normal Sinus Rhythm: Yes Ischemic changes: non-specific ST-T wave changes Medical Decision Narrative: stable exam and labs and will follow up as op Nausea/Vomiting/Diarrhea HPI - General Chief complaint: Abdominal Pain Stated complaint: upper abd pain, back pain, throat swelling Time Seen by Provider: 12/09/21 23:14 Mode of Arrival: Ambulatory Source of Information: Patient, Medical Record Limitations: No Limitations Description of Symptoms (Recalled from ER Triage Doc. by RN): Pt advises around 6pm she started having some upper right quad pain that progressively got worse as the night progressed. Denies any n/v/d. Also c/o pain in the right shoulder - History of Present Illness HPI Narrative: rt upper abd
[2021-12-09 23:27] LABS: Basophils # 0.4 K/mm3 (0-0.2); Basophils % 3.6 % (0.1-2.0); Eosinophils # 0.3 K/mm3 (0.0-0.4); Eosinophils % 2.4 % (0.1-12.0); Hematocrit 46.8 % (37.0-47.0); Hemoglobin 14.7 g/dL (12.2-16.2); Lymphocytes # 2.8 K/mm3 (0.7-4.5); Mean Corpuscular HGB Conc 31.4 g/dL (31.8-35.4); Mean Corpuscular Hemoglobin 28.5 pg (27.0-31.2); Mean Corpuscular Volume 90.7 fl (81-99); Monocytes # 0.7 K/mm3 (0.1-1.0); Monocytes % 6.2 % (1.7-9.3); Neutrophils # 7.8 K/mm3 (1.8-7.8); Neutrophils % 67.4 % (37.0-80.0); Platelet Count 289 K/mm3 (142-424); Red Blood Count 5.16 M/mm3 (4.20-5.40); Red Cell Distribution Width 13.9 % (11.5-17.5); White Blood Count 11.6 K/mm3 (4.8-10.8)
[2021-12-09 23:28] LABS: Bacteria,Urine 1+ /lpf
[2021-12-09 23:30] LABS: Chloride 103 mmol/L (98-107); Sodium 137 mmol/L (136-145)
[2021-12-09 23:31] LABS: Potassium 3.8 mmoL/L (3.5-5.1)
[2021-12-09 23:33] LABS: Alanine Aminotransferase 23 U/L (12-78); Alkaline Phosphatase 107 U/L (38-126); Amylase 56 U/L (30-110); Anion Gap 11.8 mEq/L (5-15); Aspartate Amino Transferase 29 U/L (14-36); Bilirubin,Total 0.5 mg/dl (0.2-1.3); Blood Urea Nitrogen 19 mg/dl (7-17); Carbon Dioxide 26 mmol/L (22.0-30.0); Creatinine Clearance Estimated 129 mL/min (50-200); Estimated Glomerular Filt Rate 78 ml/min (>60); GFR (African American) 94 ML/MIN (>60); Lipase 95 U/L (23-300)
[2021-12-09 23:34] LABS: Albumin Level 4.4 g/dl (3.5-5.0); Albumin/Globulin Ratio 1.5 (1.1-1.8); Calcium 9.7 mg/dl (8.4-10.2); Globulin 2.9 g/dL (1.3-3.2); Glucose 113 mg/dl (74-100); Total Protein,Serum 7.3 g/dl (6.3-8.2)
[2021-12-09 23:39] LABS: C-Reactive Protein 9.1 mg/L (0-4)
--- NOTE | 2021-12-10 00:10 | PC.NURSE ---
Went in and spoke with pt and updated her on POC.
[2021-12-10 00:39] VITALS: BP 142/88; PULSE 64; RESP 16; TEMP 37.2; O2SAT 100
== END 2021-12-10 00:47 | disposition home or self-care (01) ==
PROVIDERS: Emergency Provider Emergency Medicine; PCP Physician Assistant
DX: R10.11 Right upper quadrant pain (principal); M54.50 Low back pain, unspecified
CPT/HCPCS: 74176; 80053; 81001; 81025; 82150; 83690; 85025; 86140; 87086; 93005; 96360; 99284

== ENCOUNTER → 2021-12-10 13:53 | Outpatient (CLI) | payer MEDICAID, SELFPAY ==
--- NOTE | 2021-12-10 13:54 | US_ITS ---
FINAL REPORT CLINICAL HISTORY: thyromegaly FINDINGS: Sonographic images of the thyroid were obtained. The right lobe of the thyroid measures 1.6 x 4.2 x 1.5 cm. The left lobe of the thyroid measures 1.7 x 4.1 x 1.7 cm. No mass or nodule is identified IMPRESSION: Unremarkable thyroid ultrasound. Reviewed, Interpreted and Dictated by Tomás Stanley III, MD Transcribed by Ashleigh Polanco Authenticated by Tomás Stanley III, MD on 12/10/2021 04:46:51 PM [facility]
--- NOTE | 2021-12-10 13:54 | CT_ITS ---
FINAL REPORT TECHNIQUE: Axial CT images were performed from the lung apices through the upper abdomen. Coronal reformats were submitted. This study was performed with techniques to keep radiation doses as low as reasonably achievable (ALARA). Individualized dose reduction techniques using automated exposure control or adjustment of mA and/or kV according to the patient's size were employed. CLINICAL HISTORY: swelling, tenderness over right shoulder blade FINDINGS: There are multiple, mildly enlarged mediastinal nodes which are nonspecific, may be reactive. No axillary mass is identified. Heart size is normal. There is no pericardial or pleural effusion. Limited images of the upper abdomen are unremarkable. There are multiple bilateral noncalcified pulmonary nodules. There are two, 6 mm nodules in the right middle lobe. There is a 5 mm lingular nodule with a nonspecific appearance. IMPRESSION: Pulmonary nodules as detailed above. Consider follow-up CT in 12 months to evaluate for stability. Reviewed, Interpreted and Dictated by Tomás Stanley III, MD Transcribed by Ashleigh Polanco Authenticated by Tomás Stanley III, MD on 12/10/2021 04:46:52 PM [facility]
--- NOTE | 2021-12-10 13:54 | CT_ITS ---
FINAL REPORT TECHNIQUE: Thin section axial CT images were obtained through the neck after intravenous contrast administration. Coronal and sagittal reformats were also obtained. This study was performed with techniques to keep radiation doses as low as reasonably achievable (ALARA). Individualized dose reduction techniques using automated exposure control or adjustment of mA and/or kV according to the patient''s size were employed. CLINICAL HISTORY: swelling under left mandible FINDINGS: The nasopharynx, oropharynx, hypopharynx and larynx are unremarkable. There is no mass or adenopathy. The thyroid gland is unremarkable. The visualized sinuses are clear. There is no acute osseous abnormality. There is a retention cyst or polyp in the right maxillary sinus. IMPRESSION: No acute process. Reviewed, Interpreted and Dictated by Tomás Stanley III, MD Transcribed by Ashleigh Polanco Authenticated by Tomás Stanley III, MD on 12/10/2021 04:46:52 PM [facility]
--- NOTE | 2021-12-10 13:54 | US_ITS ---
FINAL REPORT CLINICAL HISTORY: abd pain FINDINGS: RIGHT UPPER QUADRANT ULTRASOUND Sonographic images of the right upper quadrant were obtained. The pancreas is partially obscured. There is a 1.2 cm hyperechoic mass in the liver dome, may represent a hemangioma. There is mild gallbladder wall thickening measuring 4 mm. Sludge is seen in the gallbladder. The common duct measures 3 mm. Limited images of the right kidney are normal. IMPRESSION: Mass in the liver dome, may represent a hemangioma. Mild gallbladder wall thickening with sludge. Reviewed, Interpreted and Dictated by Tomás Stanley III, MD Transcribed by Ashleigh Polanco Authenticated by Tomás Stanley III, MD on 12/10/2021 04:46:54 PM [facility]
== END ==
PROVIDERS: PCP Physician Assistant; Visit Provider Physician Assistant
DX: R22.1 Localized swelling, mass and lump, neck (principal); E01.0 Iodine-deficiency related diffuse (endemic) goiter; M54.6 Pain in thoracic spine; R10.9 Unspecified abdominal pain
CPT/HCPCS: 70491; 71250; 76536; 76705; Q9967

== ENCOUNTER → 2021-12-14 14:50 | Outpatient (CLI) | payer MEDICAID, SELFPAY | PROVIDERS: PCP Physician Assistant; Visit Provider Physician Assistant | DX: R51.9 Headache, unspecified (principal); G47.30 Sleep apnea, unspecified; G47.10 Hypersomnia, unspecified; R06.83 Snoring | CPT/HCPCS: 95806 ==

== ENCOUNTER → 2021-12-25 10:04 | Outpatient (CLI) | payer MEDICAID, SELFPAY ==
--- NOTE | 2021-12-25 10:05 | NM_ITS ---
FINAL REPORT CLINICAL HISTORY: gallbladder sludge FINDINGS: HEPATOBILIARY SCAN HISTORY: Sludge in the gallbladder PROCEDURE: The patient was injected with 8.6 mCi of technetium Choletec. 1.8 mcg of CCK was injected. Images of the abdomen were obtained for 60 minutes. FINDINGS: There is prompt uptake of radiotracer into the liver. The gallbladder is visualized at 5 minutes. The common bile duct is visualized at 10 minutes. Calculated ejection fraction is 0 % which is abnormally low. IMPRESSION: Abnormally low ejection fraction. No evidence of cholecystitis. Reviewed, Interpreted and Dictated by Georgina Fountain MD Transcribed by Xiomara Parsons Authenticated by Georgina Fountain MD on 12/28/2021 08:53:53 AM [facility]
== END ==
PROVIDERS: PCP Physician Assistant; Visit Provider Physician Assistant
DX: K82.8 Other specified diseases of gallbladder (principal)
CPT/HCPCS: 78226; A9537; J2805

== ENCOUNTER → 2021-12-29 07:52 | Outpatient (CLI) | payer MEDICAID, SELFPAY ==
--- NOTE | 2021-12-29 07:52 | MR_ITS ---
FINAL REPORT TECHNIQUE: Multiplanar and multisequence imaging was obtained before and after the intravenous injection of gadolinium contrast. CLINICAL HISTORY: liver protocol. abnormal us. 18ml prohance. COMPARISON: CT dated December 10, 2021; ultrasound dated December 10, 2021 FINDINGS: There is T1 hypointense lesion in the dome of the posterior right liver measuring 1 cm. This is not well seen on pre-contrast T2 imaging. There remainder of the liver is homogeneous. There is focal wall thickening of the fundus of the gallbladder having an appearance that has been described with focal adenomyomatosis of the gallbladder. There are no gallstones. The spleen is normal in size and signal intensity. The adrenal glands and pancreas are without acute abnormality. A left renal cyst is better seen on postcontrast imaging. No hydronephrosis. Limited evaluation of the GI tract is without acute abnormality. There is no abdominal lymphadenopathy or ascites. Postcontrast images reveal no convincing enhancement of the small lesion in the posterior right lobe of the liver. IMPRESSION: 1 cm liver lesion is not a typical hemangioma or cyst. This could represent an atypical hemangioma. In the absence of known malignancy this is likely benign. Consider follow-up in 1 year. Appearance of the fundus of the gallbladder suggesting focal adenomyomatosis. Reviewed, Interpreted and Dictated by Georgina Fountain MD Transcribed by Servando Luna Authenticated by Georgina Fountain MD on 12/29/2021 02:52:41 PM [facility]
== END ==
PROVIDERS: PCP Physician Assistant; Visit Provider Physician Assistant
DX: D18.03 Hemangioma of intra-abdominal structures (principal)
CPT/HCPCS: 74183; A9576

== ENCOUNTER 2022-01-03 21:39 | Emergency (ER) | payer MEDICAID, SELFPAY ==
[2022-01-03 21:40] VITALS: BP 156/88; PULSE 98; RESP 20; TEMP 37.1; O2SAT 100; BMI 30.7
[2022-01-03 21:50] VITALS: BMI 30.7
--- NOTE | 2022-01-03 21:52 | XR_ITS ---
PROCEDURE INFORMATION: Exam: XR Chest Exam date and time: 01/03/2022 10:00 PM Age: 46 years old Clinical indication: Sternal or substernal pain; Additional info: Cp TECHNIQUE: Imaging protocol: XR of the chest. Views: 2 views. COMPARISON: CT CHEST WO CON 12/10/2021 2:09 PM FINDINGS: Lungs: Lungs are clear. Pleural spaces: No pleural effusion. No pneumothorax. Heart/Mediastinum: Cardiomediastinal [place]hette is within normal limits. Bones/joints: No acute osseous abnormality. Soft tissues: Unremarkable. IMPRESSION: No acute findings.
--- NOTE | 2022-01-03 21:52 | ECG_ITS ---
APPROVED REPORT Exam: Resting ECG HR:73 bpm ECG Measurements Heart Rate 73 AXES [place] 161 P 47 QRSd 95 QRS 50 QT 344 T 38 QTc 370 Conclusion SINUS RHYTHM NORMAL ECG UNCONFIRMED REPORT Electronically signed by : Kike Esteban MD 01/04/2022 09:39:55
[2022-01-03 21:58] LABS: Basophils # 0.2 K/mm3 (0-0.2); Basophils % 1.8 % (0.1-2.0); Eosinophils # 0.1 K/mm3 (0.0-0.4); Eosinophils % 1.2 % (0.1-12.0); Hematocrit 42.3 % (37.0-47.0); Hemoglobin 14.1 g/dL (12.2-16.2); Lymphocytes # 1.6 K/mm3 (0.7-4.5); Lymphocytes % 15.1 % (10-50); Mean Corpuscular HGB Conc 33.3 g/dL (31.8-35.4); Mean Corpuscular Hemoglobin 29.4 pg (27.0-31.2); Mean Corpuscular Volume 88.2 fl (81-99); Mean Platelet Volume 8.7 fl (7.4-10.4); Monocytes # 0.7 K/mm3 (0.1-1.0); Monocytes % 6.2 % (1.7-9.3); Neutrophils # 8.1 K/mm3 (1.8-7.8); Neutrophils % 75.7 % (37.0-80.0); Platelet Count 258 K/mm3 (142-424); Red Blood Count 4.79 M/mm3 (4.20-5.40); Red Cell Distribution Width 13.4 % (11.5-17.5); White Blood Count 10.7 K/mm3 (4.8-10.8)
[2022-01-03 22:11] LABS: Microscopic, Urine URINE MICROSCOPIC (MICROSCOPIC)
[2022-01-03 22:13] VITALS: BP 125/58; PULSE 75; RESP 19
[2022-01-03 22:16] LABS: Amylase 48 U/L (30-110)
[2022-01-03 22:17] LABS: Alanine Aminotransferase 23 U/L (12-78); Albumin Level 4.3 g/dl (3.5-5.0); Alkaline Phosphatase 77 U/L (38-126); Aspartate Amino Transferase 27 U/L (14-36); Bilirubin,Unconjugated 0.3 mg/dL (0.0-1.1); Lipase 48 U/L (23-300); Total Protein,Serum 7.1 g/dl (6.3-8.2)
[2022-01-03 22:18] LABS: Anion Gap 12.8 mEq/L (5-15); Bilirubin,Total < 0.1 mg/dl (0.2-1.3); Blood Urea Nitrogen 16 mg/dl (7-17); Calcium 9.5 mg/dl (8.4-10.2); Carbon Dioxide 28 mmol/L (22.0-30.0); Chloride 104 mmol/L (98-107); Creatinine Clearance Estimated 144 mL/min (50-200); Estimated Glomerular Filt Rate 91 ml/min (>60); GFR (African American) 110 ML/MIN (>60); Glucose 99 mg/dl (74-100); Potassium 3.8 mmoL/L (3.5-5.1); Sodium 141 mmol/L (136-145)
[2022-01-03 22:23] LABS: C-Reactive Protein 4.5 mg/L (0-4)
[2022-01-03 22:28] LABS: Erythrocyte Sedimentation Rate 18 mm/hr (0-20)
[2022-01-03 22:30] VITALS: BP 132/80; PULSE 76; RESP 14; O2SAT 97
[2022-01-03 22:32] LABS: Troponin I < 0.01 ng/ml (0.00-0.034)
[2022-01-03 22:32] LABS: Appearance,Urine CLEAR (Clear); Bilirubin,Urine Negative (Negative); Blood, Urine 1+ (Negative); Color,Urine YELLOW (Yellow); Glucose,Urine (UA) Negative (Negative); Ketones,Urine Negative (Negative); Leukocyte Esterase,Urine 1+ (Negative); Nitrate,Urine Negative (Negative); PH,Urine 6.5 (5.0-8.5); Protein,Urine Negative (Negative); Specific Gravity, Urine <= 1.005 (1.005-1.030); Urobilinogen,Urine 0.2 EU/dl (0.2)
[2022-01-03 22:36] LABS: Procalcitonin 0.051 ng/mL (0.0-2.0)
[2022-01-03 22:36] LABS: Amorphous Sediment,Urine Trace /lpf; Squamous Epithelial Cell,Urine Occasional #/hpf (0-5)
[2022-01-03 22:55] LABS: Bilirubin,Direct < 0.1 mg/dl (0.0-0.4)
[2022-01-03 23:00] VITALS: BP 136/80; PULSE 75; RESP 20; O2SAT 95
--- NOTE | 2022-01-03 23:08 | HMH.EDCP ---
ED Disposition Clinical Impression: Chest pain Qualifiers: Chest pain type: precordial pain Qualified Code(s): R07.2 - Precordial pain Disposition: Home, Self-Care Condition on Discharge: Good Instructions: DI for Angina Additional Instructions: use meds and see card tuesday Prescriptions: Aspirin [Aspirin 81mg EC Tab] 81 mg PO DAILY #30 tab Transmission Status: Pending to [facility] Bisoprolol Fumarate [Bisoprolol 5mg Tablet] 5 mg PO DAILY #30 tab Transmission Status: Pending to [facility] Referrals: Luba Soto PA [Primary Care Provider] - - Critical Care Critical Care Time: No Attestation: On 01/03/22, the high probability of a clinically significant, sudden or life threatening deterioration of the following system(s) required my full and direct attention, intervention and personal management. The time I documented below is in addition to time spent performing reported procedures but includes the following listed in this critical care notation. Medical Decision Making - Medical Records Medical records reviewed: Yes: I reviewed the patient's medical records. - Vinicius Inquiry Pt receiving controlled substance: No Vital Signs: 01/03/22 21:40 01/03/22 22:13 01/03/22 22:30 Temperature 98.7 F Temperature Source Oral Pulse Rate 75 76 Pulse Rate [Right] 98 H Respiratory Rate 20 19 14 Blood Pressure 125/58 L 132/80 Blood Pressure [Right Arm] 156/88 H Blood Pressure Mean 79 97 Blood Pressure Mean [Right Arm] 110 Blood Pressure Source [Right Arm] Automatic Cuff 02 Sat by Pulse Oximetry 100 97 Oxygen Delivery Method Room Air Room Air 01/03/22 23:00 01/03/22 23:31 Temperature Temperature Source Pulse Rate 75 78 Pulse Rate [Right] Respiratory Rate 20 16 Blood Pressure 136/80 142/74 H Blood Pressure [Right Arm] Blood Pressure Mean 101 96 Blood Pressure Mean [Right Arm] Blood Pressure Source [Right Arm] 02 Sat by Pulse Oximetry 95 97 Oxygen Delivery Method Room Air Room Air - Lab Data Lab results reviewed: Yes: I reviewed the patient's lab results. Lab Results 01/03/22 21:40: ESR 18 01/03/22 21:40: Troponin I < 0.01, C-Reactive Protein 4.5 H, Amylase 48, Procalcitonin 0.051 01/03/22 21:40: WBC 10.7, RBC 4.79, Hgb 14.1, Hct 42.3, MCV 88.2, MCH 29.4, MCHC 33.3, RDW 13.4, Plt Count 258, MPV 8.7, Neut % (Auto) 75.7, Lymph % (Auto) 15.1, [place] % (Auto) 6.2, Eos % (Auto) 1.2, Baso % (Auto) 1.8, Neut # (Auto) 8.1 H, Lymph # (Auto) 1.6, [place] # (Auto) 0.7, Eos # (Auto) 0.1, Baso # (Auto) 0.2 01/03/22 21:40: Total Bilirubin < 0.1 L, Direct Bilirubin < 0.1, Conjugated Bilirubin 0.0, Indirect Bilirubin 0.0, Unconjugated Bilirubin 0.3, AST 27, ALT 23, Alkaline Phosphatase 77, Total Protein 7.1, Albumin 4.3, Lipase 48 01/03/22 21:40: Sodium 141, Potassium 3.8, Chloride 104, Carbon Dioxide 28, Anion Gap 12.8, BUN 16, Creatinine 0.70, Estimated Creat Clear 144, Estimated GFR 91, Est GFR ( Amer) 110, Glucose 99, Calcium 9.5 01/03/22 22:00: Urine Color Yellow, Urine Appearance Clear, Urine pH 6.5, Ur Specific [place] <= 1.005, Urine Protein Negative, Urine Glucose (UA) Negative, Urine Ketones Negative, Urine Blood 1+, Urine Nitrate Negative, Urine Bilirubin Negative, Urine Urobilinogen 0.2, Ur Leukocyte Esterase 1+ A, Urine RBC 5-10, Urine WBC 10-20, Ur Squamous Epith Cells Occasional, Amorphous Sediment Trace Result diagrams: 01/03/22 21:40 01/03/22 21:40 Orders (Tests/Meds): ED MEDICATIONS Generic Name Dose Route Start Last Admin Trade Name Freq PRN Reason Stop Dose Admin Sodium Chloride 1,000 mls @ 999 mls/hr 01/03/22 22:00 01/03/22 22:20 Sod Chlor 0.9% 1000ml Bag IV 01/03/22 23:00 999 mls/hr .Q1H1M JANES Administration Discontinued Medications Generic Name Dose Route Start Last Admin Trade Name Freq PRN Reason Stop Dose Admin Aspirin 324 mg 01/03/22 21:52 01/03/22 22:20 Aspirin 81mg Chewable Tablet PO 01/03/22 21:53 32
[2022-01-03 23:31] VITALS: BP 142/74; PULSE 78; RESP 16; O2SAT 97
--- NOTE | 2022-01-03 23:39 | PC.NURSE ---
pt c/o sore throat and would like to be checked for strep, ok'ed
--- NOTE | 2022-01-03 23:47 | PC.NURSE ---
Pt reports chest pain is gone. MD aware. She was asking about her Left neck pain, MD has reviewed all recent work up for thyroid issues.
--- NOTE | 2022-01-04 | PC.NURSE ---
s/w pt, mother, and family that is a nurse (on speaker phone) to discuss POC.
[2022-01-04 00:33] LABS: Troponin I < 0.01 ng/ml (0.00-0.034)
[2022-01-04 00:40] VITALS: BP 142/72; PULSE 77; RESP 18; TEMP 36.7; O2SAT 99
== END 2022-01-04 00:49 | disposition home or self-care (01) ==
PROVIDERS: Emergency Provider Emergency Medicine; PCP Physician Assistant
DX: R07.2 Precordial pain (principal); R10.11 Right upper quadrant pain; Z79.899 Other long term (current) drug therapy; Z87.891 Personal history of nicotine dependence
CPT/HCPCS: 71046; 80048; 80076; 81001; 82150; 83690; 84145; 84484; 85025; 85651; 86140; 87086; 93005; 96360; 96375; 99284; J2405

== ENCOUNTER 2022-01-14 20:33 | Emergency (ER) | payer MEDICAID, SELFPAY ==
[2022-01-14] VITALS (7 sets, daily range): BP systolic 119–151; BP diastolic 69–90; PULSE 59–72; RESP 14–16; TEMP 36.5–36.6; O2SAT 96–99; BMI 30.8
--- NOTE | 2022-01-14 20:35 | ECG_ITS ---
APPROVED REPORT Exam: Resting ECG HR:67 bpm ECG Measurements Heart Rate 67 AXES [place] 170 P 27 QRSd 95 QRS 40 QT 372 T 32 QTc 388 Conclusion SINUS RHYTHM NORMAL ECG UNCONFIRMED REPORT Electronically signed by : Kike Esteban MD 01/15/2022 14:18:28
--- NOTE | 2022-01-14 20:44 | XR_ITS ---
PROCEDURE INFORMATION: Exam: XR Chest Exam date and time: 01/14/2022 8:43 PM Age: 46 years old Clinical indication: Sternal or substernal pain; Additional info: Chest pain TECHNIQUE: Imaging protocol: XR of the chest. Views: 2 views. COMPARISON: CR XR CHEST 2V 01/03/2022 10:00 PM FINDINGS: Lungs: Mild hyperinflation. Pleural spaces: Unremarkable. No pleural effusion. No pneumothorax. Heart/Mediastinum: Unremarkable. No cardiomegaly. Bones/joints: Unremarkable. IMPRESSION: Mild hyperinflation, otherwise normal exam.
[2022-01-14 20:56] LABS: MANUAL DIFFERENTIAL MANUAL DIFFERENTIAL (MANUAL DIFF)
--- NOTE | 2022-01-14 20:59 | HMH.EDGENADL ---
ED Disposition Clinical Impression: Musculoskeletal pain of extremity Disposition: Home, Self-Care Condition on Discharge: Good Referrals: Provider,Referral, [Primary Care Provider] - - Critical Care Critical Care Time: No Attestation: On 01/14/22, the high probability of a clinically significant, sudden or life threatening deterioration of the following system(s) required my full and direct attention, intervention and personal management. The time I documented below is in addition to time spent performing reported procedures but includes the following listed in this critical care notation. Medical Decision Making - Medical Records Medical records reviewed: Yes: I reviewed the patient's medical records. - Vinicius Inquiry Pt receiving controlled substance: No Vital Signs: 01/14/22 20:34 01/14/22 20:40 01/14/22 21:05 Temperature 97.9 F Temperature Source Oral Pulse Rate 71 67 Pulse Rate [Right Brachial] 72 Respiratory Rate 14 Blood Pressure 151/90 H 122/69 Blood Pressure [Right Arm] 151/90 H Blood Pressure Mean [Right Arm] 110 Blood Pressure Source [Right Arm] Automatic Cuff Blood Pressure Position [Right Arm] Supine 02 Sat by Pulse Oximetry 99 97 98 Oxygen Delivery Method Room Air 01/14/22 21:34 01/14/22 22:04 Temperature Temperature Source Pulse Rate 59 L 60 Pulse Rate [Right Brachial] Respiratory Rate Blood Pressure 130/79 119/73 Blood Pressure [Right Arm] Blood Pressure Mean [Right Arm] Blood Pressure Source [Right Arm] Blood Pressure Position [Right Arm] 02 Sat by Pulse Oximetry 97 96 Oxygen Delivery Method - Lab Data Lab results reviewed: Yes: I reviewed the patient's lab results. Lab Results 01/14/22 20:51: Sodium 139, Potassium 4.1, Chloride 106, Carbon Dioxide 28, Anion Gap 9.1, BUN 16, Creatinine 0.70, Estimated Creat Clear 140, Estimated GFR 91, Est GFR ( Amer) 110, Glucose 109 H, Calcium 9.4, Troponin I < 0.01 01/14/22 20:51: WBC 10.8, RBC 4.84, Hgb 14.0, Hct 43.0, MCV 88.8, MCH 28.9, MCHC 32.5, RDW 13.3, Plt Count 236, MPV 9.0, Neut % (Auto) 67.5, Lymph % (Auto) 19.7, Clarke % (Auto) 7.0, Eos % (Auto) 2.1, Baso % (Auto) 3.7 H, Neut # (Auto) 7.3, Lymph # (Auto) 2.1, Clarke # (Auto) 0.8, Eos # (Auto) 0.2, Baso # (Auto) 0.4 H 01/14/22 20:51: D-Dimer 0.89 H 01/14/22 20:57: Urine Color Yellow, Urine Appearance Clear, Urine pH 6.0, Ur Specific [place] 1.010, Urine Protein Negative, Urine Glucose (UA) Negative, Urine Ketones Negative, Urine Blood 3+, Urine Nitrate Negative, Urine Bilirubin Negative, Urine Urobilinogen 0.2, Ur Leukocyte Esterase 2+ A, Urine RBC 10-20, Urine WBC 10-20, Ur Squamous Epith Cells 10-20, Urine Bacteria 2+ Result diagrams: 01/14/22 20:51 01/14/22 20:51 Orders (Tests/Meds): ED MEDICATIONS Generic Name Dose Route Start Last Admin Trade Name Frepallavi PRN Reason Stop Dose Admin Sodium Chloride 10 ml 01/14/22 20:44 01/14/22 21:01 Sodium Chloride 0.9% 10ml Flush Syringe IV 02/13/22 20:43 10 ml NEEDED PRN Administration Maintain IV Site Discontinued Medications Generic Name Dose Route Start Last Admin Trade Name Freq PRN Reason Stop Dose Admin Acetaminophen 1,000 mg 01/14/22 21:15 01/14/22 21:37 Acetaminophen 500mg Tab PO 01/14/22 21:16 1,000 mg ONCE ONE Administration Aspirin 324 mg 01/14/22 20:56 01/14/22 21:00 Aspirin 81mg Chewable Tablet PO 01/14/22 20:57 324 mg ONCE ONE Administration Ketorolac Tromethamine 15 mg 01/14/22 21:15 01/14/22 21:37 Ketorolac 30mg/Ml Vial IV 01/14/22 21:16 15 mg ONCE ONE Administration ORDERS Category Date Time Status CBC Man Diff [Complete Blood Count Man Dif] Stat Lab 01/14/22 20:51 Results Urine Culture Stat Micro 01/14/22 20:57 Received 12-lead EKG Request [ECG Request by /Alexandra] Stat Y 01/14/22 20:45 Ordered Medical Decision Narrative: Patient is a 46-year-old female without significant cardiac history prese
[2022-01-14 21:01] LABS: Basophils # 0.4 K/mm3 (0-0.2); Basophils % 3.7 % (0.1-2.0); Eosinophils # 0.2 K/mm3 (0.0-0.4); Eosinophils % 2.1 % (0.1-12.0); Lymphocytes # 2.1 K/mm3 (0.7-4.5); Lymphocytes % 19.7 % (10-50); Mean Corpuscular HGB Conc 32.5 g/dL (31.8-35.4); Mean Corpuscular Hemoglobin 28.9 pg (27.0-31.2); Mean Corpuscular Volume 88.8 fl (81-99); Monocytes # 0.8 K/mm3 (0.1-1.0); Neutrophils # 7.3 K/mm3 (1.8-7.8); Neutrophils % 67.5 % (37.0-80.0); Platelet Count 236 K/mm3 (142-424); Red Blood Count 4.84 M/mm3 (4.20-5.40); Red Cell Distribution Width 13.3 % (11.5-17.5); White Blood Count 10.8 K/mm3 (4.8-10.8)
--- NOTE | 2022-01-14 21:01 | PC.NURSE ---
ER AT BEDSIDE. PT INFORMED MD THAT SHE HAS AN ECHO AND STRESS TEST SCHEDULED IN AM.
[2022-01-14 21:02] LABS: Microscopic, Urine URINE MICROSCOPIC (MICROSCOPIC)
[2022-01-14 21:04] LABS: Appearance,Urine CLEAR (Clear); Bilirubin,Urine Negative (Negative); Blood, Urine 3+ (Negative); Color,Urine YELLOW (Yellow); Glucose,Urine (UA) Negative (Negative); Ketones,Urine Negative (Negative); Leukocyte Esterase,Urine 2+ (Negative); Nitrate,Urine Negative (Negative); Protein,Urine Negative (Negative); Urobilinogen,Urine 0.2 EU/dl (0.2)
[2022-01-14 21:05] LABS: Chloride 106 mmol/L (98-107); Potassium 4.1 mmoL/L (3.5-5.1); Sodium 139 mmol/L (136-145)
[2022-01-14 21:08] LABS: Anion Gap 9.1 mEq/L (5-15); Blood Urea Nitrogen 16 mg/dl (7-17); Carbon Dioxide 28 mmol/L (22.0-30.0); Creatinine Clearance Estimated 140 mL/min (50-200); Estimated Glomerular Filt Rate 91 ml/min (>60); GFR (African American) 110 ML/MIN (>60)
[2022-01-14 21:09] LABS: Calcium 9.4 mg/dl (8.4-10.2); Glucose 109 mg/dl (74-100)
[2022-01-14 21:23] LABS: Troponin I < 0.01 ng/ml (0.00-0.034)
[2022-01-14 21:36] LABS: Bacteria,Urine 2+ /lpf
[2022-01-14 21:38] LABS: D-Dimer 0.89 ug/mL (0.0-0.5)
[2022-01-15 00:40] LABS: Eosinophils % 1 % (0-3); Lymphocytes % 25 % (10-50); Monocytes % 7 % (2-9); Neutrophils % 67 % (42-76); Nucleated Red Blood Cells 1; Platelet Estimate Normal; Total Cells Counted 100
== END 2022-01-14 22:51 | disposition home or self-care (01) ==
PROVIDERS: Emergency Provider Emergency Medicine
DX: R07.89 Other chest pain (principal); M25.512 Pain in left shoulder; R42 Dizziness and giddiness; R79.1 Abnormal coagulation profile; R11.0 Nausea; F20.2 Catatonic schizophrenia; Z79.82 Long term (current) use of aspirin; Z79.899 Other long term (current) drug therapy; Z87.891 Personal history of nicotine dependence; Z20.9 Contact with and (suspected) exposure to unspecified communicable disease
CPT/HCPCS: 71046; 80048; 81001; 84484; 85007; 85014; 85018; 85048; 85049; 85378; 87086; 93005; 96374; 99284

== ENCOUNTER 2022-01-15 10:08 | Day surgery (SDC) | payer MEDICAID, SELFPAY ==
[2022-01-15] VITALS (12 sets, daily range): BP systolic 94–152; BP diastolic 43–97; PULSE 57–83; RESP 18–20; O2SAT 92–100; BMI 25.7; BMI 29.7
--- NOTE | 2022-01-15 | CA_ITS ---
APPROVED REPORT Exam: Pharmacologic Technologist: Essence Virgen, Ht: 5 ft 6 in Wt: 192 lbs BSA: 1.97 m2 HR: 64 bpm BP: 120/68 mmHg Medical History Medications: Aspirin,,,,, Atorvastatin,,,,, Vit D3,,,,, LoraTADINE,,,,, BisOPROLOL,,,,, Vit D2,,,,, FumERATE,,,,, Terconazole,,,,, Allergies: No known drug allergies Stress Test Details Test: LEXISCAN HR Resting HR: 75 bpm Max Heart Rate (APMHR): 176.555834 bpm Max HR Achieved: 114 bpm Target HR (85% APMHR): 149.399954 bpm % of APMHR: 64.77 Recovery HR: 68 bpm BP Resting BP: 120/68 mmHg Max BP: 122/66 mmHg Recovery BP: 102.0/60.0 mmHg ECG Clinical Exercise duration: 04:12 min Highest Stage Achieved: Stress ECG Conclusion PT HAD NAUSEA, SOA. NO CP. PERSISTENT SYMPTOMS HAD TO GIVE AMINOPHYLLINE 50 MG IV POST EKG. SYMPTOMS RESOLVED. <1.[address] DEPRESSION Electronically signed by : Benny Rodriguez MD 01/18/2022 13:31:45
--- NOTE | 2022-01-15 | IR_ITS ---
APPROVED REPORT Patient Location: Outpatient Harbor Engineer: JON Horta RT (R) PROCEDURES Left heart catheterization Left ventriculogram Selective coronary angiogram INDICATION Acute coronary syndrome, SCAI INDICATION Clinical history: Patient is scheduled for stress test earlier today and began experiencing chest pain during infusion of Lexiscan. 20 minutes following the Lexiscan she continued to complain of chest pain and was given reversal agent. Despite this she continued to have intense chest pain consistent with an acute coronary syndrome. Because of this she was emergently brought to the [facility] for angiography Informed consent was obtained prior to the procedure. COMPLICATIONS NONE Estimated Blood Loss: LESS THAN 10 ML TECHNIQUE One percent lidocaine used to anesthetize the right anterior aspect of the wrist. The right radial artery was accessed via the Seldinger technique. A 6 Albanian sheath was placed in the right radial artery. 2.5 mg of verapamil, 800 mcg of nitroglycerin, 1mg Lidocaine and 5000 U Heparin were given through the arterial sheath. The papa catheter was also used to perform left heart catheterization, left ventriculogram and selective coronary angiogram. At the end of the procedure the sheath was removed good hemostasis was achieved using Traclet band, patient was transferred to the postop holding area in stable condition. ANGIOGRAPHIC RESULTS The left main artery Normal The left anterior descending artery Normal The circumflex artery Normal The right coronary artery Dominant normal The HECTOR ventriculogram reveals Normal 65% The left ventricular end-diastolic pressure 20 mmHg IMPRESSION Normal coronary arteries Normal ejection fraction Mildly elevated LVEDP PLAN 1. Treatment of endothelial dysfunction with microvascular spasm which is likely etiology for patient's symptoms Electronically signed by : Agusto Arias MD 01/15/2022 12:05:52
--- NOTE | 2022-01-15 07:13 | NM_ITS ---
APPROVED REPORT Exam: Nuclear Stress Test Indication: C.P., SOB, HYPERLIPIDEMIA, FM HX., FATIGUE Patient Location: Outpatient Stress Tech: Essence Virgen [place] Tech:Jazzy PuenteJON RT (R)(N)(M) Ht: 5 ft 6 in Wt: 190 lbs Bra Size: DD HR: 75 bpm BP: 120/68 mmHg BSA: 1.96 m2 BMI: 30.6 History: C.P., SOB, HYPERLIPIDEMIA, FM HX., FATIGUE Procedure: Patient received a 0.4 mg of intravenous Lexiscan, resting heart rate 75 bpm, resting blood pressure 120/68 mmHg, with Lexiscan maximum heart rate achived was 104 bpm which is % of the maximum predicted heart rate and blood pressure was 122/66 mmHg. PT C/O C.P., AND SABINE ARM PAIN, PT WAS GIVEN AMINOPHYLLINE, BUT THE SYMPTOMS DID NOT SUBSIDE. THE PT WAS TAKEN TO THE HEART [facility] BEFORE STRESS IMAGES COULD BE COMPLETED Cardiac Stress and Resting SPECT Images: Cardiac Stress and Resting SPECT images were obtained using technetium 99m Myoview 31.5 mCi stress and 10.83 mCi at rest. No images were performed. Conclusion: 1. No myocardial perfusion imaging is performed. Electronically signed by : Benny Rodriguez MD 01/15/2022 12:52:53
--- NOTE | 2022-01-15 09:24 | ECG_ITS ---
APPROVED REPORT Exam: Resting ECG HR:62 bpm ECG Measurements Heart Rate 62 AXES AR 179 P 5 QRSd 87 QRS 59 QT 387 T 18 QTc 392 Conclusion SINUS RHYTHM NORMAL ECG UNCONFIRMED REPORT Electronically signed by : Kike Esteban MD 01/16/2022 20:19:09
--- NOTE | 2022-01-15 09:31 | CA_ITS ---
APPROVED REPORT EXAM: Comprehensive 2D, Doppler, and color-flow Echocardiogram Heavy Duty Truck Mechanic: Kimi Salinas RVT Ht: 5 ft 6 in Wt: 192lbs BSA: 1.97 BP: 122/68 mmHg Indications: CP,OBESITY,BG 2D Dimensions LVOT 1.89 cm (M/F) 1.5-2.5 LA Volume 25.10 mL LA Volume Index 12.80 mL/m2 (M/F) 16-34 M-Mode Dimensions RVDd 2.11 cm (0.9-2.6) LA Diam 3.39 cm (1.9-4.0) LVDd 4.71 cm (3.5-5.7) Ao Diam 2.53 cm (2.0-3.7) LVDs 2.86 cm (3.5-5.7) IVSd 1.04 cm (0.6-1.1) PWd 0.64 cm (0.6-1.1) EF (Teich) 69.80% FS 39.30% EDV (Teich) 102.90 mL TAPSE 2.90 (<1.7) ESV (Teich) 31.10 mL LV Diastology E Decel Time 163.00 (160-240 msec) E/A Ratio 1.3 MED E' 9.20 (< 7 cm/sec) E'/MED E' Ratio 9.10 (>14) LAT E' 11.80 (<10 cm/sec) E/LAT E' Ratio 7.09 (>14) Aortic Valve AO Peak GR. 5.10 mmHg Mitral Valve MV E Max Emerson. 84.00 (40-130 cm/s) MV A Velocity 65.00 (40-130 cm/s) E/A Ratio 1.29 MV Decel. Time 163.00 (160-240 ms) MV PHT 48.00 ms Pulmonary Valve PV Peak Velocity 97.00 (50-150 cm/s) Tricuspid Valve TR P. Velocity 227.00 cm/s RAP Estimate 10.00 mmHg RVSP 30.50 mmHg Left Ventricle Left atrium is normal size, left ventricle is normal size, no concentric left ventricular hypertrophy, estimated ejection fraction 55% with no regional wall motion abnormality, diastolic parameters are within normal range. Right Ventricle Right atrium and right ventricle are normal size and contractility. Aortic Valve Aortic valve is grossly normal there is no aortic stenosis or aortic insufficiency. Mitral Valve Mitral valve is grossly normal, there is trace mitral regurgitation. Tricuspid Valve Tricuspid valve grossly normal, there is trace tricuspid regurgitation, tricuspid regurgitation jet velocity is inadequate for calculation of the right ventricular systolic pressure. Pulmonic Valve Pulmonic valve is poorly visualized. Great Vessels Aortic root is normal size. Inferior vena cava is normal size with normal inspiratory collapse. Pericardium No significant pericardial effusion noted. Conclusion 1. Normal left ventricular size, preserved left ventricular systolic function, estimated ejection fraction 55% with no regional wall motion abnormality, diastolic parameters are within normal range. 2. Trace mitral and tricuspid regurgitation. 3. No significant pericardial effusion noted. 4. Inferior vena cava is normal size with normal inspiratory collapse. Electronically signed by : Benny Rodriguez MD 01/15/2022 14:23:03
[2022-01-15 10:32] LABS: Coronavirus 19, PCR Not Detected (NotDetected); Influenza A, PCR Not Detected (NotDetected); Influenza B, PCR Not Detected (NotDetected)
--- NOTE | 2022-02-15 09:50 | PC.NURSE ---
PATIENT RECEIVED HST RETURNED SEVERAL DAYS LATER - NOT ENOUGH DATA - NO CHARGE TO PATIENT
== END 2022-01-15 14:26 | disposition home or self-care (01) ==
LOC: CATHLAB 10:08
PROVIDERS: PCP Physician Assistant; Visit Provider Internal Medicine
DX: R07.9 Chest pain, unspecified (principal); R94.39 Abnormal result of other cardiovascular function study; Z79.899 Other long term (current) drug therapy; R10.9 Unspecified abdominal pain; Z87.891 Personal history of nicotine dependence; Z20.822 Contact with and (suspected) exposure to COVID-19
CPT/HCPCS: 78451; 93005; 93017; 93306; 93458; 99152; A9502; C1725; C1769; C9803; J0280; J1644; J2405; J2785; Q9967; U0003; U0005

== ENCOUNTER → 2022-01-26 13:41 | Outpatient (CLI) | payer MEDICAID, SELFPAY ==
[2022-01-26 14:37] LABS: Urine Pregnancy, HCG Qual. Negative (Negative)
== END ==
PROVIDERS: PCP Physician Assistant; Visit Provider Surgery
DX: Z01.812 Encounter for preprocedural laboratory examination (principal); Z20.822 Contact with and (suspected) exposure to COVID-19; R10.9 Unspecified abdominal pain
CPT/HCPCS: 36415; 81025; C9803; U0003; U0005

== ENCOUNTER 2022-01-28 06:06 | Day surgery (SDC) | payer MEDICAID, SELFPAY ==
[2022-01-26 09:54] VITALS: BMI 29.8
[2022-01-28] VITALS (11 sets, daily range): BP systolic 117–134; BP diastolic 50–85; PULSE 54–74; RESP 12–18; TEMP 36.3–43; O2SAT 96–100
--- NOTE | 2022-01-28 08:20 | P.OP_ITS ---
Date of procedure: 01/28/22 Pre-op Diagnosis:: Chronic cholecystitis Post-op Diagnosis:: Same Procedure performed:: Laparoscopic cholecystectomy Surgeon:: Derrek Ramsey MD INDUSTRIAL MACHINE OPERATOR:: Christopher Esquivel Anesthesia: GETAlicia Estimated blood loss (mL): 15 Operative findings:: Pericholecystic fat stranding Moderate wall thickening Infundibular thickening Operative note:: After informed consent was obtained, the patient was taken to the operating room and placed in the supine position. General anesthesia was induced and the abdomen was prepped and draped in a sterile fashion. After infiltration with local anesthetic an infraumbilical incision was made. A Veress needle was placed in position. The abdomen was insufflated. A 5 mm optical trocar was placed in position. Under direct visualization, a 12 mm trocar was placed in the subxiphoid position and 2 additional 5 mm trocars were placed in the right upper quadrant. The gallbladder was elevated up and over the liver margin. The tissue around the cystic duct was carefully dissected. 3 clips were placed proximally and the duct was transected with harmonic meri. Harmonic meri were then utilized to dissect the gallbladder away from the liver margin with careful attention to the control of the cystic artery. The gallbladder was placed in a retrieval bag and removed through the subxiphoid trocar site. The right upper quadrant was thoroughly irrigated. No active bleeding or bile leak was noted. Fascia at the subxiphoid trocar site was reapproximated utilizing the NeoClose device (additional 0 Ethibond also placed). The remaining trocars were removed. All wounds were irrigated and skin was closed with 4-0 Monocryl in a subcuticular fashion. Steri-Strips were applied. The patient's anesthetic agents were reversed and extubation was completed prior to transfer to recovery in stable condition. Condition: stable Disposition: PACU Specimens:: Gallbladder Complications:: No immediate
--- NOTE | 2022-01-28 08:29 | P.PN_ITS ---
[facility] Anesthesia Record Part I Intake, IV Amount: 1,200 Estimated blood loss (mL): 10 Urine output (mL): 0 Blood Pressure: 134/52 SaO2: 96 Pulse Rate: 74 Respiratory Rate: 16 Temperature: 98.5 F Patient is:: Drowsy, Stable Stable to PACU at:: 08:25
--- NOTE | 2022-01-28 08:29 | HMH.ANESCL ---
[facility] Anesthesia Checklist - Patient Identification Patient Identification: Arm Band - Structural Data Admitted From: Home Planned Operative Procedure/s: Laparoscopic Cholecystectomy Consent for Planned Operative Procedure(s) Verified: Yes Verified Documents: Surgical Consent, History and Physical - NPO Status Verified Time NPO: 00:00 - Additional verifications Anesthesia Reactions: No Hx Blood Transfusions: No Blood Transfusion Reaction: No - Airway Assessment C-Spine Mobility Assessed: Yes (mp2) TMJ Mobility Assessed: Yes Dentition: Good Dentition - Neurological Assessment Level of Consciousness: Awake, Alert - Anesthesia Plan Anesthesia Risk discussed: Yes Anesthesia Plan: Verified ASA Class: II Anesthesia Type: General [facility] History I have reviewed the patient's past medical history: Yes Medical History: Reports:: Anxiety, Depression Denies:: Cancer, Diabetes Mellitus Type 1, Diabetes Mellitus Type 2, Internal Pacemaker, MRSA, Seizures *Have you ever received a pneumonia vaccine?: No *Have you received a flu vaccine this season?: No Other Medical History: Denies: Blood Transfusion Reaction Anesthesia experience/problems:: nac Laterality Cases: Left: Breast Biopsy, Bilateral: Tonsillectomy Other Surgeries: Yes: Cardiac Catheterization, Dilation and Curettage. No: Pacemaker Amputation: No Fractures: No - *Social History Last grade of school completed: High school graduate Smoking Status: Former smoker # Packs/Day (cigarettes): 1 Alcohol Intake: never Substance Use Type: denies use *Occupational Status:: employed Housing: house Household Members: spouse, family *Travel in the last 8 weeks: None - Psychiatric History Pschychiatric History:: Reports:: Anxiety, Depression Family Hx:: Cancer
--- NOTE | 2022-01-28 08:59 | SUR.PHASEI ---
[id number] called and provided detailed report to Carlyn Box RN [id number] transported via stretcher to post op. vital signs stable. states pain is tolerable. left pt in stable condition with Carlyn Box RN at bedside.
--- NOTE | 2022-01-29 08:23 | P.PN_ITS ---
[facility] Anesthesia Record Part II Discharge Time: 08:55 Destination: Surgical Day Care (OP Surgery) PACU nurse assessment reviewed?: Yes Patient Condition:: Good Anesthesia Complications:: None Swallowing reflex intact?: Yes Cyanosis?: No Blood Pressure: 117/50 Pulse Rate: 55 Temperature: 98 F Mental Status: Alert & Oriented Pain level:: 3 Nausea and/or vomitting:: None Intake, IV Amount: 0
[2022-01-29 08:24] VITALS: BP 117/50; PULSE 55; TEMP 36.6
== END 2022-01-28 09:41 | disposition home or self-care (01) ==
LOC: OR 06:07
PROVIDERS: PCP Physician Assistant; Visit Provider Surgery
PROC: 0FT44ZZ Resection of Gallbladder, Percutaneous Endoscopic Approach (ICD-10-PCS; CPT 47562; principal; 2022-01-28 07:30)
DX: K81.1 Chronic cholecystitis (principal); F32.A Depression, unspecified; F41.1 Generalized anxiety disorder; Z79.899 Other long term (current) drug therapy
CPT/HCPCS: 47562; 96374; J2405; J2710

== ENCOUNTER 2022-02-24 20:56 | Emergency (ER) | payer MEDICAID, SELFPAY ==
--- NOTE | 2022-02-24 20:51 | ECG_ITS ---
APPROVED REPORT Exam: Resting ECG HR:84 bpm ECG Measurements Heart Rate 84 AXES SD 151 P 48 QRSd 94 QRS 57 QT 342 T 48 QTc 383 Conclusion SINUS RHYTHM WITH SINUS ARRHYTHMIA NORMAL ECG UNCONFIRMED REPORT Electronically signed by : Kike Esteban MD 02/25/2022 10:16:21
[2022-02-24 21:08] VITALS: BP 116/95; PULSE 89; RESP 18; TEMP 36.9; O2SAT 99; BMI 29.8
--- NOTE | 2022-02-24 21:15 | XR_ITS ---
PROCEDURE INFORMATION: Exam: XR Chest Exam date and time: 02/24/2022 9:19 PM Age: 46 years old Clinical indication: Pain; Cough; Left-sided; Additional info: Cough/cp TECHNIQUE: Imaging protocol: Radiologic exam of the chest. Views: 2 views. COMPARISON: CR XR CHEST 2V 01/14/2022 8:43 PM FINDINGS: Lungs: Unremarkable. No consolidation. Pleural spaces: Unremarkable. No pleural effusion. No pneumothorax. Heart/Mediastinum: Unremarkable. No cardiomegaly. Bones/joints: Unremarkable. IMPRESSION: No acute cardiopulmonary abnormality.
[2022-02-24 21:31] LABS: Influenza A, PCR Not Detected (NotDetected); Influenza B, PCR Not Detected (NotDetected)
[2022-02-24 21:39] LABS: Basophils % 0.6 % (0.1-2.0); Eosinophils # 0.2 K/mm3 (0.0-0.4); Eosinophils % 2.7 % (0.1-12.0); Hemoglobin 14.1 g/dL (12.2-16.2); Lymphocytes # 1.7 K/mm3 (0.7-4.5); Lymphocytes % 21.5 % (10-50); Mean Corpuscular HGB Conc 32.9 g/dL (31.8-35.4); Mean Corpuscular Hemoglobin 27.8 pg (27.0-31.2); Mean Corpuscular Volume 84.5 fl (81-99); Mean Platelet Volume 8.1 fl (7.4-10.4); Monocytes # 0.5 K/mm3 (0.1-1.0); Monocytes % 6.4 % (1.7-9.3); Neutrophils # 5.3 K/mm3 (1.8-7.8); Neutrophils % 68.7 % (37.0-80.0); Platelet Count 224 K/mm3 (142-424); Red Blood Count 5.09 M/mm3 (4.20-5.40); Red Cell Distribution Width 12.1 % (11.5-17.5); White Blood Count 7.7 K/mm3 (4.8-10.8)
[2022-02-24 21:59] LABS: Anion Gap 11.6 mEq/L (5-15); Blood Urea Nitrogen 16 mg/dl (7-17); Calcium 9.5 mg/dl (8.4-10.2); Carbon Dioxide 32 mmol/L (22.0-30.0); Chloride 101 mmol/L (98-107); Creatinine Clearance Estimated 136 mL/min (50-200); Estimated Glomerular Filt Rate 91 ml/min (>60); GFR (African American) 110 ML/MIN (>60); Glucose 151 mg/dl (74-100); Potassium 3.6 mmoL/L (3.5-5.1); Sodium 141 mmol/L (136-145)
[2022-02-24 22:00] VITALS: BP 122/61; PULSE 78; RESP 18; O2SAT 97
[2022-02-24 22:00] LABS: Magnesium 2.2 mg/dl (1.6-2.3)
[2022-02-24 22:05] LABS: C-Reactive Protein 21.2 mg/L (0-4)
[2022-02-24 22:17] LABS: Erythrocyte Sedimentation Rate 19 mm/hr (0-20)
[2022-02-24 22:19] LABS: Procalcitonin 0.054 ng/mL (0.0-2.0)
[2022-02-24 22:26] LABS: Troponin I < 0.01 ng/ml (0.00-0.034)
[2022-02-24 22:27] LABS: Coronavirus 19, PCR Detected (NotDetected)
[2022-02-24 22:31] VITALS: BP 121/65; PULSE 88; RESP 16; O2SAT 97
--- NOTE | 2022-02-24 22:40 | HMH.EDCP ---
ED Disposition Clinical Impression: COVID-19 Disposition: Home, Self-Care Condition on Discharge: Good Instructions: DI for COVID-19 (Suspected or Confirmed ) Additional Instructions: use meds and call pcp for follow up Referrals: Luba Soto PA [Primary Care Provider] - - Critical Care Critical Care Time: No Attestation: On 02/24/22, the high probability of a clinically significant, sudden or life threatening deterioration of the following system(s) required my full and direct attention, intervention and personal management. The time I documented below is in addition to time spent performing reported procedures but includes the following listed in this critical care notation. Medical Decision Making - Medical Records Medical records reviewed: Yes: I reviewed the patient's medical records. - Vinicius Inquiry Pt receiving controlled substance: No Vital Signs: 02/24/22 21:08 02/24/22 22:00 Temperature 98.4 F Temperature Source Oral Pulse Rate 78 Pulse Rate [Apical] 89 Respiratory Rate 18 18 Blood Pressure 122/61 Blood Pressure [Right Arm] 116/95 H Blood Pressure Mean [Right Arm] 102 Blood Pressure Source [Right Arm] Automatic Cuff Blood Pressure Position [Right Arm] Sitting 02 Sat by Pulse Oximetry 99 97 Oxygen Delivery Method Room Air Room Air - Lab Data Lab results reviewed: Yes: I reviewed the patient's lab results. Lab Results 02/24/22 21:04: Magnesium 2.2, Procalcitonin 0.054 02/24/22 21:06: Sodium 141, Potassium 3.6, Chloride 101, Carbon Dioxide 32 H, Anion Gap 11.6, BUN 16, Creatinine 0.70, Estimated Creat Clear 136, Estimated GFR 91, Est GFR ( Amer) 110, Glucose 151 H, Calcium 9.5, Troponin I < 0.01, C-Reactive Protein 21.2 H 02/24/22 21:06: WBC 7.7, RBC 5.09, Hgb 14.1, Hct 43.0, MCV 84.5, MCH 27.8, MCHC 32.9, RDW 12.1, Plt Count 224, MPV 8.1, Neut % (Auto) 68.7, Lymph % (Auto) 21.5, Phelps % (Auto) 6.4, Eos % (Auto) 2.7, Baso % (Auto) 0.6, Neut # (Auto) 5.3, Lymph # (Auto) 1.7, Phelps # (Auto) 0.5, Eos # (Auto) 0.2, Baso # (Auto) 0.0, ESR 19 02/24/22 21:26: SARS-CoV-2 (PCR) Detected A, Influenza A Untype (PCR) Not detected, Influenza Type B (PCR) Not detected Result diagrams: 02/24/22 21:06 02/24/22 21:06 Orders (Tests/Meds): ED MEDICATIONS Generic Name Dose Route Start Last Admin Trade Name Freq PRN Reason Stop Dose Admin Sodium Chloride 1,000 mls @ 999 mls/hr 02/24/22 21:30 02/24/22 21:21 Sod Chlor 0.9% 1000ml Bag IV 02/24/22 22:30 999 mls/hr .Q1H1M JANES Administration Discontinued Medications Generic Name Dose Route Start Last Admin Trade Name Freq PRN Reason Stop Dose Admin Aspirin 243 mg 02/24/22 21:16 02/24/22 21:21 Aspirin 81mg Chewable Tablet PO 02/24/22 21:17 243 mg ONCE ONE Administration Nitroglycerin 0.4 mg 02/24/22 21:17 02/24/22 21:21 Nitroglycerin 0.4mg Sl Tablet SL 02/24/22 21:18 0.4 mg ONCE ONE Administration ORDERS Category Date Time Status Troponin I Q3H Lab 02/25/22 00:30 Ordered Troponin I Q3H Lab 02/25/22 03:30 Ordered - Radiology Data #1 Image(s): Chest Image Reviewed: Yes I have reviewed radiologist's interpretation Preliminary Findings: Normal/NAD - ECG Data Tracing #1 Normal Sinus Rhythm: Yes Ischemic changes: non-specific ST-T wave changes Medical Decision Narrative: has covid-19 and has stable exam and labs and cxr - Chest Pain HPI - General Chief Complaint: Chest Pain Stated Complaint: CP Time Seen by Provider: 02/24/22 22:40 Mode of Arrival: Ambulatory Source of Information: Patient, Medical Record Limitations: No Limitations Description of Symptoms (Recalled from ER Triage Doc. by RN): Pt c/o left chest tightness and shoulder pain that started an hour ago. C/O cough with sinus and allergy issues since Tuesday. States cough is non productive. States that when chest pain started she took 81mg aspirin. Denies nausea or arm radiation. States that
[2022-02-24 23:00] VITALS: BP 127/72; PULSE 82; RESP 11; O2SAT 97
[2022-02-24 23:05] VITALS: BP 122/61; PULSE 78; RESP 18; TEMP 36.8; O2SAT 97
== END 2022-02-24 23:08 | disposition home or self-care (01) ==
PROVIDERS: Emergency Provider Emergency Medicine; PCP Physician Assistant
DX: U07.1 COVID-19 (principal); R07.9 Chest pain, unspecified; Z79.899 Other long term (current) drug therapy; F41.9 Anxiety disorder, unspecified; F32.A Depression, unspecified
CPT/HCPCS: 71046; 80048; 83735; 84145; 84484; 85025; 85651; 86140; 93005; 96365; 99284; C9803; U0003; U0005

== ENCOUNTER → 2022-03-31 12:53 | Outpatient (CLI) | payer MEDICAID, SELFPAY ==
--- NOTE | 2022-03-31 12:54 | US_ITS ---
PROCEDURE INFORMATION: Exam: US Left Breast, Complete US Right Breast, Complete MG Bilateral Screening 3D Mammography Exam date and time: 03/31/2022 1:00 PM Age: 47 years old Clinical indication: Screening. No family history of breast cancer. TECHNIQUE: Imaging protocol: Complete ultrasound of all four quadrants of the Left breast and the retroareolar regions, including ultrasound of the axilla when performed. Complete ultrasound of all four quadrants of the Right breast and the retroareolar regions, including ultrasound of the axilla when performed. Bilateral Screening tomosynthesis and 2D mammography including computer-aided detection (CAD) when performed. COMPARISON: 1. MG MM CLIP PLACEMENT LT 02/04/2021 11:53 AM 2. MG MM DIG MAMM BI DX W/CAD 12/22/2020 2:52 PM 3. MG MM DIG SCREENING MAMM BI W/CAD 11/19/2020 1:09 PM 4. MG MAMMO DIAGNOSTIC DIGITAL TOMOSYNTHESIS BILATERAL W CAD 05/15/2019 9:15 AM FINDINGS: MAMMOGRAPHY: Breast composition: The breasts are extremely dense, which lowers the sensitivity of mammography. Mass: None. Architectural distortion: None. Calcifications: No suspicious calcifications. Asymmetric density: None. Skin thickening: None. Axillary adenopathy: None. Powder and or artifact related to deodorant and or powder high in both axilla. Other: 2 biopsy clips. ULTRASOUND: Bilateral sonography, all 4 quadrants, retroareolar and axilla. On the right, multiple complicated cysts as well as oval hypoechoic masses having the appearance of complicated cysts - similar in appearance, though waxing and waning, in comparison to prior studies. The largest is at 9 o'clock 7 cm from the nipple measuring up to 1.7 cm. Scattered subcentimeter simple cysts. No suspicious cystic or solid masses demonstrated. Sonographically unremarkable right axillary lymph node. On the left, multiple complicated cysts as well as oval hypoechoic masses having the appearance of complicated cysts - similar in appearance, though waxing and waning, in comparison to prior studies. The largest is at 4 o'clock 2 cm from the nipple measuring up to 1.2 cm. Scattered simple cysts, largest is at 5 o'clock measuring up to 1.8 cm. No suspicious cystic or solid mass demonstrated. Sonographically unremarkable left axillary lymph node. IMPRESSION: Extensive bilateral benign-appearing cystic changes. No mammographic or sonographic evidence of malignancy. Annual screening mammography and sonography are recommended unless otherwise clinically indicated. ASSESSMENT: Screening mammogram BIRADS: BI-RADS Category 2: Benign Overall BIRADS: BI-RADS Category 2: Benign
== END ==
PROVIDERS: PCP Physician Assistant; Visit Provider Surgery
DX: Z12.31 Encounter for screening mammogram for malignant neoplasm of breast (principal); R92.8 Other abnormal and inconclusive findings on diagnostic imaging of breast
CPT/HCPCS: 76641; 77063; 77067

== ENCOUNTER 2022-05-21 17:14 | Emergency (ER) | payer MEDICAID, SELFPAY ==
--- NOTE | 2022-05-21 17:14 | ECG_ITS ---
APPROVED REPORT Exam: Resting ECG HR:77 bpm ECG Measurements Heart Rate 77 AXES WI 159 P 56 QRSd 97 QRS 48 QT 356 T 49 QTc 388 Conclusion SINUS RHYTHM NORMAL ECG UNCONFIRMED REPORT Electronically signed by : Kike Esteban MD 05/22/2022 08:29:07
[2022-05-21 17:28] VITALS: BMI 29.0
--- NOTE | 2022-05-21 17:45 | XR_ITS ---
PROCEDURE INFORMATION: Exam: XR Chest Exam date and time: 05/21/2022 6:00 PM Age: 47 years old Clinical indication: Pain; Chest pressure; Additional info: Chest pain left arm pain TECHNIQUE: Imaging protocol: Radiologic exam of the chest. Views: 1 view. COMPARISON: CR XR CHEST 2V 02/24/2022 9:19 PM FINDINGS: Lungs: Mild opacities in the right base may represent atelectasis or pneumonia.. Pleural spaces: Unremarkable. No pleural effusion. No pneumothorax. Heart/Mediastinum: Unremarkable. No cardiomegaly. Bones/joints: Unremarkable. IMPRESSION: Mild opacities in the right base may represent atelectasis or pneumonia..
[2022-05-21 17:49] VITALS: BP 139/108; PULSE 76; RESP 17; TEMP 36.8; O2SAT 99; BMI 29.0
[2022-05-21 17:54] VITALS: PULSE 76
[2022-05-21 18:16] LABS: Anion Gap 13.7 mEq/L (5-15); Blood Urea Nitrogen 14 mg/dl (7-17); Calcium 8.6 mg/dl (8.4-10.2); Carbon Dioxide 28 mmol/L (22.0-30.0); Chloride 103 mmol/L (98-107); Creatinine Clearance Estimated 153 mL/min (50-200); Estimated Glomerular Filt Rate 108 ml/min (>60); GFR (African American) 131 ML/MIN (>60); Glucose 99 mg/dl (74-100); Potassium 3.7 mmoL/L (3.5-5.1); Sodium 141 mmol/L (136-145)
[2022-05-21 18:25] LABS: Basophils # 0.1 K/mm3 (0-0.2); Basophils % 0.7 % (0.1-2.0); Eosinophils # 0.2 K/mm3 (0.0-0.4); Eosinophils % 1.3 % (0.1-12.0); Hemoglobin 14.4 g/dL (12.2-16.2); Lymphocytes # 1.8 K/mm3 (0.7-4.5); Lymphocytes % 16.1 % (10-50); Mean Corpuscular HGB Conc 32.1 g/dL (31.8-35.4); Mean Corpuscular Hemoglobin 28.5 pg (27.0-31.2); Monocytes # 0.6 K/mm3 (0.1-1.0); Neutrophils # 8.5 K/mm3 (1.8-7.8); Neutrophils % 76.9 % (37.0-80.0); Platelet Count 271 K/mm3 (142-424); Red Blood Count 5.05 M/mm3 (4.20-5.40); Red Cell Distribution Width 13.7 % (11.5-17.5); White Blood Count 11.1 K/mm3 (4.8-10.8)
[2022-05-21 18:29] LABS: Troponin I < 0.01 ng/ml (0.00-0.034)
[2022-05-21 18:43] VITALS: BP 132/75; PULSE 78; RESP 18; O2SAT 98
--- NOTE | 2022-05-21 19:23 | HMH.EDGENADL ---
Discharge Plan Disposition Patient Disposition: Home, Self-Care Condition: Good Prescriptions Prescriptions: New prednisone 20 mg tablet 20 mg PO BID Qty: 10 0RF No Action loratadine 10 mg tablet 10 mg PO DAILY aspirin 81 mg tablet,delayed release (DR/EC) 81 mg PO DAILY Qty: 90 3RF Paxlovid (EUA) 300 mg (150 mg x 2)-100 mg tablet See Rx Instructions PO .COMPLEX 5 Days Qty: 30 0RF Rx Instructions: take TWO 150 mg tablets of nirmatrelvir with ONE 100 mg tablet of ritonavir twice daily for 5 days PO buspirone 5 mg tablet See Rx Instructions .ROUTE .COMPLEX Qty: 60 3RF Dose Instruction: TAKE ONE TABLET BY MOUTH 2 TIMES A DAY Rx Instructions: TAKE ONE TABLET BY MOUTH 2 TIMES A DAY atorvastatin 10 MG tablet 10 mg PO HS ergocalciferol (vitamin D2) 1,250 MCG capsule 1,250 mcg PO WEEKLY cholecalciferol (vitamin D3) 1,000 UNIT capsule 25 mcg PO DAILY Referrals Follow up/Referrals: Luba Soto PA [Primary Care Provider] - See instructions Activity Restrictions/Add. Instructions Additional Instructions/Restrictions: Prednisone as prescribed. Tylenol for pain. Follow-up with primary care provider next week, call Tuesday for appointment. Return to the emergency department if symptoms worsen. Clinical Impressions Clinical Impression: Cervical radicular pain Discharge ED Provider: Orlin Ballard General Adult HPI General Chief complaint: Chest Pain Stated complaint: cp Time Seen by Provider: 05/21/22 19:10 Mode of Arrival: Ambulatory Source of Information: Patient Limitations: No Limitations Description of Symptoms (Recalled from ER Triage Doc. by RN): pt to ed c/o left sided chest pain that radiates down her left arm. pt states she was in the car on the way home from when the pain started. pt reports it is a constant sharp pain. pt reports having a heart cath last year that was normal. History of Present Illness HPI narrative: Patient states that she woke up with a stiff neck 3 days ago. Then yesterday she began experiencing pain from her left shoulder all the way down her left arm that increases with movement. No numbness or weakness. She has had problems off and on with pain in her left shoulder and arm. She has had previous cardiac work-up with a heart cath this year. She says that she had a stress test done but did not make it to the stress test and was taken for a heart cath the same day. Denies shortness of breath, nausea, diaphoresis. She has hyperlipidemia, but does not have hypertension or diabetes. She has never been a smoker. Related Data Home Medications Medication Instructions Recorded Confirmed loratadine 10 mg tablet 10 mg PO DAILY Supplement 12/14/21 04/21/22 atorvastatin 10 mg tablet 10 mg PO HS hld 01/03/22 04/21/22 cholecalciferol (vitamin D3) 25 25 mcg PO DAILY Supplement 01/03/22 04/21/22 mcg (1,000 unit) capsule ergocalciferol (vitamin D2) 1,250 1,250 mcg PO WEEKLY Supplement 01/03/22 04/21/22 mcg (50,000 unit) capsule Previous Rx's Medication Instructions Recorded aspirin 81 mg tablet,delayed 81 mg PO DAILY Blood thinner #90 02/09/22 release tabs nirmatrelvir 300 mg (150 mg See Rx Instructions PO .COMPLEX 5 02/25/22 x2)-ritonavir 100 mg tablet,dose days #30 tabs pack(EUA) (Paxlovid) buspirone 5 mg tablet See Rx Instructions .Route 04/30/22 .COMPLEX #60 tabs prednisone 20 mg tablet 20 mg PO BID #10 tabs 05/21/22 Allergies Allergy/AdvReac Type Severity Reaction Status Date / Time No Known Allergies Allergy Verified 04/21/22 14:25 [facility] Medical History (Updated 05/21/22 @ 19:30 by Orlin Ballard MD) Anxiety Endothelial dysfunction of coronary artery Surgical History (Updated 04/21/22 @ 14:25 by JUAN Wills) History of laparoscopic cholecystectomy Social History Smoking Status: Never smoker alcohol intake: never substance use type
[2022-05-21 20:16] VITALS: BP 129/80; PULSE 66; RESP 20; TEMP 36.7; O2SAT 99
== END 2022-05-21 19:50 | disposition home or self-care (01) ==
PROVIDERS: Emergency Provider Emergency Medicine; PCP Physician Assistant
DX: M54.12 Radiculopathy, cervical region (principal); Z79.899 Other long term (current) drug therapy; F41.9 Anxiety disorder, unspecified; I25.10 Atherosclerotic heart disease of native coronary artery without angina pectoris; G47.30 Sleep apnea, unspecified
CPT/HCPCS: 71045; 80048; 84484; 85025; 93005; 96374; 99284

== ENCOUNTER → 2022-06-03 15:25 | Outpatient (CLI) | payer MEDICAID, SELFPAY ==
--- NOTE | 2022-06-03 15:35 | XR_ITS ---
FINAL REPORT CLINICAL HISTORY: cervical upper back pain, no injury FINDINGS: Cervical spine 5 views were obtained. There is no acute fracture. Alignment is normal. The disc spaces are preserved. IMPRESSION: No acute process. Thoracic spine AP and lateral views were obtained. There is no acute fracture. Alignment is normal. There are mild degenerative changes with small osteophytes. There is mild rightward curvature. IMPRESSION: Mild degenerative change. Reviewed, Interpreted and Dictated by Tomás Stanley III, MD Transcribed by Servando Luna Authenticated and [facility]
== END ==
PROVIDERS: PCP Nurse Practitioner Family; Visit Provider Nurse Practitioner Family
DX: M54.12 Radiculopathy, cervical region (principal); M54.6 Pain in thoracic spine; M54.9 Dorsalgia, unspecified
CPT/HCPCS: 72084

== ENCOUNTER 2022-07-09 15:00 | Outpatient (RCR) | payer MEDICAID, SELFPAY ==
--- NOTE | 2022-06-23 16:00 | HMH.PTOPEV ---
[id number] PT Outpatient Evaluation Rehab PT Outpatient Evaluation Start: 06/23/22 15:02 Freq: Status: Active Protocol: Document 06/23/22 15:44 BRENDAN (Rec: 06/23/22 16:00 BRENDAN [id number]) E-signed By Kristopher Floyd, PT Outpatient Therapy Subjective History Subjective History Patient is a 47 year old female presenting to outpatient PT with reports of cervical and upper thoracic spine pain of insidious onset starting approximately months ago. Patient intermittent BUE radicular symptoms (L>R). Most recent imaging indicates mild degenerative changes of the cervical and thoracic spine. Comorbidities include hx of HTN and cholecystectomy. Chief Complaint Pain,Stiff,Paresthesia Symptom Type Ache,Sharp,Dull,Numbness, Tingling Symptoms Relieved By Rest/Positioning,OTC Meds Prior Functional Limitations Reaching,Lifting,Housework Current Functional Limitations Reaching,Lifting,Housework Symptom Description Constant but Variable Level of pain today (0-10) 5 Pain scale - at its best (0-10) 2 Pain scale - at its worst (0-10) 6 Cervical Eval Palpation Cervical Muscles R Upper Trapezius,L Upper Trapezius Cervical/Thoracic Palpation Findings Tenderness Posture Head/C-Spine Posture Sitting Position C-Spine Flattened Head/C-Spine Posture Standing Position C-Spine Flattened Flexibility Deficits Upper Trapezius Muscle Length (R) Moderate Tightness,(L) Moderate Tightness Levaetor Scapulae Muscle Length (R) Moderate Tightness,(L) Moderate Tightness Scalene Group Muscle Length (R) Moderate Tightness,(L) Moderate Tightness Pectoralis Minor Muscle Length (R) Moderate Tightness,(L) Moderate Tightness Passive Joint Mobility Cervical PIVM WNL: R OA L OA R AA L AA R C2/3 L C2/3 R C3/4 L C3/4 R C4/5 L C4/5 R C5/6 L C5/6
== END 2022-07-09 15:05 | disposition home or self-care (01) ==
LOC: PT 15:00
PROVIDERS: PCP Nurse Practitioner Family; Visit Provider Nurse Practitioner Family
DX: M54.12 Radiculopathy, cervical region (principal); M54.9 Dorsalgia, unspecified
CPT/HCPCS: 97163

== ENCOUNTER 2022-08-31 06:41 | Emergency (ER) | payer MEDICAID, SELFPAY ==
[2022-08-31 06:42] VITALS: BP 136/84; PULSE 75; RESP 17; TEMP 36.6; O2SAT 99; BMI 29.9
--- NOTE | 2022-08-31 06:56 | ECG_ITS ---
APPROVED REPORT Exam: Resting ECG HR:69 bpm ECG Measurements Heart Rate 69 AXES GA 150 P 55 QRSd 98 QRS 80 QT 378 T 74 QTc 397 Conclusion SINUS RHYTHM NORMAL ECG UNCONFIRMED REPORT Electronically signed by : Kike Esteban MD 08/31/2022 13:32:11
[2022-08-31 06:57] VITALS: BMI 29.9
--- NOTE | 2022-08-31 06:59 | XR_ITS ---
FINAL REPORT TECHNIQUE: Two views CLINICAL HISTORY: r/o cardiac, left arm pain this morning COMPARISON: May 2022 FINDINGS: No acute pulmonary density is present. Mediastinal contour is normal. Heart size is stable. IMPRESSION: Stable chest exam without acute disease Reviewed, Interpreted and Dictated by Jeovany Estrada MD Transcribed by Servando Luna Authenticated and [facility]
[2022-08-31 07:01] VITALS: BP 136/84; PULSE 73; O2SAT 98
[2022-08-31 07:06] LABS: Microscopic, Urine URINE MICROSCOPIC (MICROSCOPIC)
[2022-08-31 07:07] LABS: Appearance,Urine SL CLOUDY (Clear); Bilirubin,Urine Negative (Negative); Blood, Urine 1+ (Negative); Color,Urine YELLOW (Yellow); Glucose,Urine (UA) Negative (Negative); Ketones,Urine Negative (Negative); Leukocyte Esterase,Urine Negative (Negative); Nitrate,Urine Negative (Negative); Protein,Urine Negative (Negative); Urobilinogen,Urine 0.2 EU/dl (0.2)
[2022-08-31 07:09] LABS: Basophils # 0.1 K/mm3 (0-0.2); Basophils % 0.7 % (0.1-2.0); Eosinophils # 0.3 K/mm3 (0.0-0.4); Eosinophils % 3.6 % (0.1-12.0); Hematocrit 44.9 % (37.0-47.0); Hemoglobin 14.7 g/dL (12.2-16.2); Lymphocytes # 1.7 K/mm3 (0.7-4.5); Lymphocytes % 18.9 % (10-50); Mean Corpuscular HGB Conc 32.8 g/dL (31.8-35.4); Mean Corpuscular Hemoglobin 28.4 pg (27.0-31.2); Mean Corpuscular Volume 86.6 fl (81-99); Mean Platelet Volume 9.7 fl (7.4-10.4); Monocytes # 0.6 K/mm3 (0.1-1.0); Monocytes % 6.1 % (1.7-9.3); Neutrophils # 6.4 K/mm3 (1.8-7.8); Neutrophils % 70.6 % (37.0-80.0); Platelet Count 281 K/mm3 (142-424); Red Blood Count 5.18 M/mm3 (4.20-5.40); Red Cell Distribution Width 13.8 % (11.5-17.5); Urine Pregnancy, HCG Qual. Negative (Negative)
[2022-08-31 07:14] LABS: Anion Gap 9.8 mEq/L (5-15); Blood Urea Nitrogen 15 mg/dl (7-17); Calcium 8.9 mg/dl (8.4-10.2); Carbon Dioxide 30 mmol/L (22.0-30.0); Chloride 104 mmol/L (98-107); Creatinine Clearance Estimated 131 mL/min (50-200); Estimated Glomerular Filt Rate 90 ml/min (>60); GFR (African American) 109 ML/MIN (>60); Glucose 108 mg/dl (74-100); Potassium 3.8 mmoL/L (3.5-5.1); Sodium 140 mmol/L (136-145)
[2022-08-31 07:25] LABS: Bacteria,Urine 1+ /lpf; WBC,Urine Occasional #/hpf (0-3)
--- NOTE | 2022-08-31 07:28 | PC.NURSE ---
Spoke to radiology regarding xray order
[2022-08-31 07:29] LABS: Alanine Aminotransferase 25 U/L (12-78); Albumin Level 4.5 g/dl (3.5-5.0); Alkaline Phosphatase 76 U/L (38-126); Amylase 57 U/L (30-110); Aspartate Amino Transferase 35 U/L (14-36); Bilirubin,Direct 0.4 mg/dl (0.0-0.4); Bilirubin,Indirect 0.4 mg/dL (0.0-0.9); Bilirubin,Total 0.8 mg/dl (0.2-1.3); Bilirubin,Unconjugated 0.4 mg/dL (0.0-1.1); Lipase 51 U/L (23-300); Total Protein,Serum 7.7 g/dl (6.3-8.2)
[2022-08-31 07:30] VITALS: BP 132/81; PULSE 69; RESP 17; O2SAT 98
[2022-08-31 07:33] LABS: Troponin I < 0.01 ng/ml (0.00-0.034)
--- NOTE | 2022-08-31 07:34 | PC.NURSE ---
pt to radiology via wheelchair with pulmonary function technologist
--- NOTE | 2022-08-31 07:38 | HMH.EDDIZZ ---
Discharge Plan Disposition Patient Disposition: Home, Self-Care Chief Complaint: Dizziness Prescriptions Prescriptions: No Action amlodipine 2.5 mg tablet 2.5 mg PO DAILY aspirin 81 mg tablet,delayed release (DR/EC) 81 mg PO DAILY Qty: 90 3RF cholecalciferol (vitamin D3) 1,000 UNIT capsule 25 mcg PO DAILY loratadine 10 mg tablet See Rx Instructions .ROUTE .COMPLEX Rx Instructions: TAKE ONE TABLET BY MOUTH ONCE A DAY escitalopram oxalate 10 mg tablet See Rx Instructions .ROUTE .COMPLEX Rx Instructions: TAKE 1 TABLET BY MOUTH ONCE A DAY AT BEDTIME. Referrals Follow up/Referrals: Riri Barahona APRN [Primary Care Provider] - See instructions Clinical Impressions Clinical Impression: Dizziness, Left shoulder pain Instructions Patient Instructions: Dizziness, Nonvertigo Discharge ED Provider: Willie Ragland HPI General Chief Complaint: Dizziness Stated Complaint: left arm pain, nausea Time Seen by Provider: 08/31/22 07:15 Mode of Arrival: Family Vehicle Source of Information: Patient and Medical Record Limitations: No Limitations Description of Symptoms (Recalled from ER Triage Doc. by RN): Pt c/o episodes of hot flash , dizziness, nausea, and L arm pain that began while she was driving to work. Denies any chest pain, back pain, or SOA. Denies fever or chills. Pt had a normal heart cath 01/15/22. Pt also reports some intermittent RUQ ABD pain that is mild discomforting. Denies any current dizziness. She also states I think I am going through the change and thought maybe you could check for that . History of Present Illness HPI Narrative: pt reports feeling dizzy and hot this am with nausea and lt arm pain while driving to work- hx of endothelial ht dis with nl cath 01/27- complaint: dizziness Onset (ago): hour(s) Timing: sudden onset Description: lightheadedness History of similar episodes: No History of trauma: No Severity: moderate Associated symptoms: denies other symptoms Related Data Home Medications Medication Instructions Recorded Confirmed cholecalciferol (vitamin D3) 25 25 mcg PO DAILY Supplement 01/03/22 08/31/22 mcg (1,000 unit) capsule amlodipine 2.5 mg tablet 2.5 mg PO DAILY High blood pressure 07/22/22 08/31/22 escitalopram oxalate 10 mg tablet See Rx Instructions .Route 08/31/22 08/31/22 .COMPLEX anxitey loratadine 10 mg tablet See Rx Instructions .Route 08/31/22 08/31/22 .COMPLEX Allergy symptoms Previous Rx's Medication Instructions Recorded aspirin 81 mg tablet,delayed 81 mg PO DAILY Blood thinner #90 02/09/22 release tabs Allergies Allergy/AdvReac Type Severity Reaction Status Date / Time No Known Allergies Allergy Verified 07/22/22 14:26 [facility] Disclaimer: The information contained in this section may have been updated after the patient was seen, as this information can be updated by other users. Medical History Anxiety Endothelial dysfunction of coronary artery Surgical History History of laparoscopic cholecystectomy Social History Smoking Status: Former smoker alcohol intake: never substance use type: denies use current occupational status: employed Travel in the last 8 weeks: None household members: spouse and family housing: house caffeine: Yes ROS Obtained: Yes All systems reviewed & no additional complaints except as documented Physical Exam General General appearance: alert Head Head exam: normocephalic Eye Eye exam: Present PERRL and EOMI ENT ENT exam: Present mucous membranes moist Neck Neck exam: Present trachea midline Respiratory Respiratory exam: Present normal lung sounds bilaterally; Absent respiratory distress Cardiovascular Cardiovascular exam: Present regular rate; Absent systolic murmur A
--- NOTE | 2022-08-31 07:41 | PC.NURSE ---
Family at BS
[2022-08-31 08:00] VITALS: BP 153/92; PULSE 69; RESP 16; O2SAT 98
[2022-08-31 08:50] VITALS: BP 131/75; PULSE 69; RESP 20; TEMP 36.6; O2SAT 98
== END 2022-08-31 09:17 | disposition home or self-care (01) ==
PROVIDERS: Emergency Provider Emergency Medicine; PCP Nurse Practitioner Family
DX: R42 Dizziness and giddiness (principal); M25.512 Pain in left shoulder; M79.602 Pain in left arm; F41.9 Anxiety disorder, unspecified; Z90.49 Acquired absence of other specified parts of digestive tract; Z87.891 Personal history of nicotine dependence
CPT/HCPCS: 71046; 80048; 80076; 81001; 81025; 82150; 83690; 84484; 85025; 93005; 96360; 99285

== ENCOUNTER → 2022-12-15 13:53 | Outpatient (CLI) | payer MEDICAID, SELFPAY ==
--- NOTE | 2022-12-15 13:53 | CT_ITS ---
FINAL REPORT TECHNIQUE: axial CT without IV contrast administration. This study was performed with techniques to keep radiation doses as low as reasonably achievable (ALARA). Individualized dose reduction techniques using automated exposure control or adjustment of mA and/or kV according to the patient's size were employed. CLINICAL HISTORY: Pulmonary nodules FINDINGS: There are at least 6 nodules scattered within the right lung, largest measures 10 mm. There are at least 6 nodules scattered in the left lung, largest measures 5 mm. There are numerous mildly enlarged lymph nodes scattered throughout the mediastinum and hilum. No acute lung disease is identified. There is no pleural or pericardial effusion. IMPRESSION: 1. Scattered lung nodules and mild intrathoracic adenopathy. Differential diagnosis would include sarcoidosis, infectious process such as TB/fungal disease is or less likely metastatic disease. Recommend continued follow-up in 6 months. Reviewed, Interpreted and Dictated by Jeovany Estrada MD Transcribed by Ashleigh Polanco Authenticated and [facility]
== END ==
PROVIDERS: PCP Nurse Practitioner Family; Visit Provider Physician Assistant
DX: R91.8 Other nonspecific abnormal finding of lung field (principal)
CPT/HCPCS: 71250

== ENCOUNTER → 2022-12-29 12:08 | Outpatient (CLI) | payer MEDICAID, SELFPAY ==
[2022-12-29 12:34] LABS: Basophils % 0.4 % (0.1-2.0); Eosinophils # 0.2 K/mm3 (0.0-0.4); Hematocrit 44.7 % (37.0-47.0); Hemoglobin 14.2 g/dL (12.2-16.2); Lymphocytes # 1.9 K/mm3 (0.7-4.5); Lymphocytes % 18.5 % (10-50); Mean Corpuscular HGB Conc 31.8 g/dL (31.8-35.4); Mean Corpuscular Hemoglobin 27.6 pg (27.0-31.2); Mean Corpuscular Volume 86.7 fl (81-99); Mean Platelet Volume 8.5 fl (7.4-10.4); Monocytes # 0.6 K/mm3 (0.1-1.0); Neutrophils # 7.5 K/mm3 (1.8-7.8); Platelet Count 262 K/mm3 (142-424); Red Blood Count 5.16 M/mm3 (4.20-5.40); Red Cell Distribution Width 12.9 % (11.5-17.5); White Blood Count 10.3 K/mm3 (4.8-10.8)
[2022-12-29 13:05] LABS: Uric Acid 4.1 mg/dl (2.5-6.2)
[2022-12-29 13:08] LABS: C-Reactive Protein 7.4 mg/L (0-4)
[2022-12-29 13:36] LABS: Thyroid Stimulating Hormone 0.84 uIU/mL (0.465-4.68)
[2022-12-31 12:10] LABS: FSH 77.5 mIU/mL (.); LH 46.2 mIU/mL (.); Progesterone 0.1 ng/mL (.)
[2023-01-02 00:09] LABS: QuantiFERON-TB Gold Plus Negative (Negative)
[2023-01-04 20:14] LABS: Aspergillus flavus Negative (Neg:<1:1); Aspergillus fumigatus Negative (Neg:<1:1); Aspergillus niger Negative (Neg:<1:1); Blastomyces Antibody Negative (Neg:<1:1)
[2023-01-07 01:07] LABS: Estrogen 50 pg/mL (.)
== END ==
PROVIDERS: PCP Nurse Practitioner Family; Referring Provider Physician Assistant; Visit Provider Internal Medicine Pulmonary Disease
DX: R06.09 Other forms of dyspnea (principal); J84.10 Pulmonary fibrosis, unspecified; J45.909 Unspecified asthma, uncomplicated; I25.10 Atherosclerotic heart disease of native coronary artery without angina pectoris
CPT/HCPCS: 36415; 82672; 83001; 83002; 84144; 84443; 84550; 85025; 86140; 86480; 86606; 86612

== ENCOUNTER → 2023-01-11 07:49 | Outpatient (CLI) | payer MEDICAID, SELFPAY ==
--- NOTE | 2023-01-11 07:49 | CT_ITS ---
FINAL REPORT TECHNIQUE: Axial CT of the abdomen and pelvis, without and with IV contrast. CLINICAL HISTORY: RUQ ABD PAIN, HEPATIC PROTOCOL COMPARISON: December 2021 FINDINGS: Abdomen: Lung bases are clear. Stable hypodense lesion in the posterior liver dome measuring up to 7 mm favors a complex cyst. No other hepatic lesion. Prior cholecystectomy. The spleen, pancreas and adrenal glands are unremarkable. Precontrast imaging shows no renal stone disease. Postcontrast imaging of the kidneys shows a small upper pole left renal cyst. No bowel obstruction or fluid collection is seen. Pelvis: The appendix is normal. Mild sigmoid diverticulosis without diverticulitis. Uterus and ovaries are unremarkable. No fluid collection or adenopathy is seen. IMPRESSION: Stable size posterior right hepatic lesion favors a complex cyst. No additional follow-up required. Reviewed, Interpreted and Dictated by Jeovany Estrada MD Transcribed by Servando Luna Authenticated and [facility]
[2023-01-11 08:29] LABS: Blood Urea Nitrogen 15 mg/dl (7-17); Estimated Glomerular Filt Rate 90 ml/min (>60); GFR (African American) 109 ML/MIN (>60)
== END ==
PROVIDERS: PCP Nurse Practitioner Family; Visit Provider Surgery
DX: K76.89 Other specified diseases of liver (principal)
CPT/HCPCS: 36415; 74178; 82565; 84520; Q9967

== ENCOUNTER → 2023-04-13 14:20 | Outpatient (CLI) | payer MEDICAID, SELFPAY ==
--- NOTE | 2023-04-13 14:20 | CT_ITS ---
FINAL REPORT TECHNIQUE: Axial images were obtained from the lung apex to the mid abdomen by computed tomography. Coronal reformatted images were obtained. This study was performed with techniques to keep radiation doses as low as reasonably achievable, (ALARA). Individualized dose reduction techniques using automated exposure control or adjustment of mA and/or kV according to the patient''s size were employed. CLINICAL HISTORY: nodules, 3 month followup from lung screening COMPARISON: 12/15/2022 FINDINGS: There is no axillary adenopathy. There are multiple mildly enlarged mediastinal nodes again noted, which are stable when compared to the prior CT. Heart size is normal. There is no pericardial or pleural effusion. Limited images of the upper abdomen are unremarkable. Multiple bilateral nodules are identified. There is a 7 mm right upper lobe nodule best seen in image #20. There is a 5 mm posterior right upper lobe nodule, best seen in image #32. There is a 10 mm lateral right middle lobe nodule seen best in image #49. There is a 5 mm inferior lingular nodule best seen on image #45. These nodules are all stable when compared to the prior CT. There is a 9 mm posterior liver dome mass, possibly a hepatic cyst. This is unchanged since a prior CT of the abdomen and pelvis from 01/11/2023. IMPRESSION: Multiple bilateral pulmonary nodules as detailed above. These all appear stable since the prior CT of December. Multiple mildly enlarged mediastinal nodes are again noted, also stable. 9 mm posterior liver dome mass, likely a hepatic cyst, stable since the prior CT of the abdomen and pelvis dated January 11, 2023. Reviewed, Interpreted and Dictated by Tomás Stanley III, MD Transcribed by Maria Esther Bellamy Authenticated and [facility]
== END ==
PROVIDERS: PCP Nurse Practitioner Family; Visit Provider Internal Medicine Pulmonary Disease
DX: R06.02 Shortness of breath (principal); R91.8 Other nonspecific abnormal finding of lung field
CPT/HCPCS: 71250; 94060; 94726; 94729

== ENCOUNTER → 2023-04-29 08:29 | Outpatient (CLI) | payer MEDICAID, SELFPAY ==
--- NOTE | 2023-04-29 08:34 | MM_ITS ---
PROCEDURE INFORMATION: Exam: MG Bilateral Screening 3D Mammography Exam date and time: 04/29/2023 8:31 AM Age: 48 years old Clinical indication: Screening mammogram TECHNIQUE: Imaging protocol: Bilateral Screening tomosynthesis and 2D mammography including computer-aided detection (CAD) when performed. COMPARISON: 1. MG MM DIG SCREENING MAMM BI W/CAD 03/31/2022 1:00 PM 2. MG MM CLIP PLACEMENT LT 02/04/2021 11:53 AM 3. MG MM DIG MAMM BI DX W/CAD 12/22/2020 2:52 PM 4. MG MM DIG SCREENING MAMM BI W/CAD 11/19/2020 1:09 PM FINDINGS: MAMMOGRAPHY: Breast composition: The breast tissue is extremely dense, which lowers the sensitivity of mammography. Mass: None. Architectural distortion: No new or suspicious architectural distortion. Calcifications: No new or suspicious calcifications are present Asymmetric density: No new or suspicious asymmetric density is present Skin thickening: None. Axillary adenopathy: None. IMPRESSION: No mammographic evidence of malignancy. Recommend annual screening mammography unless otherwise clinically indicated. ASSESSMENT: BI-RADS category 1: Negative
== END ==
PROVIDERS: PCP Nurse Practitioner Family; Visit Provider Nurse Practitioner Family
DX: Z12.31 Encounter for screening mammogram for malignant neoplasm of breast (principal)
CPT/HCPCS: 77063; 77067

== ENCOUNTER → 2023-06-02 15:31 | Outpatient (CLI) | payer MEDICAID, SELFPAY ==
--- NOTE | 2023-06-02 15:34 | US_ITS ---
PROCEDURE INFORMATION: Exam: US Left Breast, Complete Exam date and time: 06/02/2023 3:58 PM Age: 48 years old Clinical indication: Other: Reddened - warm area; Additional info: Breast pain and lump rule out abscess TECHNIQUE: Imaging protocol: Complete ultrasound of all four quadrants of the left breast and the retroareolar regions, including ultrasound of the axilla when performed. COMPARISON: US BREAST LT COMPLETE 03/31/2022 1:44 PM FINDINGS: Breast: Multiple rounded simple appearing cysts are again seen. No fluid collection is seen to suggest an abscess. Other findings: The skin is thickened. Mildly enlarged lymph nodes in the left axilla are probably reactive. IMPRESSION: 1. Skin thickening. No evidence of a breast abscess. 2. Scattered cysts within the breast parenchyma appear similar to the prior breast ultrasound.
== END ==
PROVIDERS: PCP Nurse Practitioner Family; Visit Provider Obstetrics & Gynecology
DX: N61.1 Abscess of the breast and nipple (principal); N63.20 Unspecified lump in the left breast, unspecified quadrant; N64.4 Mastodynia
CPT/HCPCS: 76641

== ENCOUNTER 2023-07-31 19:51 | Emergency (ER) | payer MEDICAID, SELFPAY ==
[2023-07-31 19:52] VITALS: BP 150/81; PULSE 116; RESP 16; TEMP 36.9; O2SAT 96; BMI 32.3
--- NOTE | 2023-07-31 20:08 | PC.NURSE ---
in room talking with patient at this time.
--- NOTE | 2023-07-31 20:11 | HMH.EDGENADL ---
Discharge Plan Disposition Patient Disposition: Home, Self-Care Prescriptions Prescriptions: New ondansetron 4 mg tablet,disintegrating 4 mg PO Q6H PRN (Reason: nausea and vomiting) Qty: 12 0RF No Action pravastatin 10 mg tablet 10 mg PO DAILY aspirin 81 mg tablet,delayed release (DR/EC) 81 mg PO DAILY citalopram 10 mg tablet 10 mg PO amoxicillin-pot clavulanate 875-125 mg tablet 1 tab PO BID Qty: 14 0RF amlodipine 2.5 mg tablet 2.5 mg PO DAILY cholecalciferol (vitamin D3) 25 mcg (1,000 unit) tablet See Rx Instructions .ROUTE .COMPLEX Qty: 90 3RF Dose Instruction: TAKE ONE TABLET BY MOUTH ONCE A DAY Rx Instructions: TAKE ONE TABLET BY MOUTH ONCE A DAY loratadine 10 mg tablet See Rx Instructions .ROUTE .COMPLEX Qty: 30 3RF Dose Instruction: TAKE ONE TABLET BY MOUTH ONCE A DAY Rx Instructions: TAKE ONE TABLET BY MOUTH ONCE A DAY Referrals Follow up/Referrals: Riri Barahona APRN [Primary Care Provider] - See instructions Activity Restrictions/Add. Instructions Additional Instructions/Restrictions: At this time it was felt you are safe to be discharged home. If new or worsening symptoms please do not hesitate to return the emergency department. If symptoms persist please follow-up with your family doctor as you are able. Please follow-up with your family doctor in 1 week for results of your stool sample. Please take your medication as prescribed. Clinical Impressions Clinical Impression: Vomiting, Diarrhea Instructions Patient Instructions: DI for Acute Abdominal Pain Discharge ED Provider: Delfino Morley General Adult HPI General Chief complaint: Abdominal Pain Stated complaint: abd pain Time Seen by Provider: 07/31/23 20:00 Mode of Arrival: Ambulatory Source of Information: Patient Limitations: No Limitations Description of Symptoms (Recalled from ER Triage Doc. by RN): pt c/o n/v/d and abd pain that started just prior to arrival. History of Present Illness HPI narrative: Patient is a 48-year-old female with no chronic past medical history presents emergency department for evaluation of nausea, vomiting, diarrhea. Onset was acute, she was at a family gathering after eating food she developed severe diarrhea. She was in the ER with her son having him checked when she developed uncontrollable vomiting and diarrhea at bedside causing her to check in. Denies significant abdominal pain, there is abdominal discomfort with retching, no other acute complaints at this time. Related Data Home Medications Medication Instructions Recorded Confirmed amlodipine 2.5 mg tablet 2.5 mg PO DAILY High blood pressure 07/22/22 06/02/23 pravastatin 10 mg tablet 10 mg PO DAILY 12/29/22 06/02/23 citalopram 10 mg tablet 10 mg PO 01/12/23 06/02/23 aspirin 81 mg tablet,delayed 81 mg PO DAILY 04/29/23 06/02/23 release Previous Rx's Medication Instructions Recorded amoxicillin 875 mg-potassium 1 tab PO BID #14 tabs 06/02/23 clavulanate 125 mg tablet cholecalciferol (vitamin D3) 25 See Rx Instructions .Route 06/02/23 mcg (1,000 unit) tablet .COMPLEX #90 tabs loratadine 10 mg tablet See Rx Instructions .Route 06/29/23 .COMPLEX #30 tabs ondansetron 4 mg disintegrating 4 mg PO Q6H PRN nausea and 07/31/23 tablet vomiting #12 tabs Allergies Allergy/AdvReac Type Severity Reaction Status Date / Time No Known Allergies Allergy Verified 06/02/23 14:[address] [facility] Disclaimer: The information contained in this section may have been updated after the patient was seen, as this information can be updated by other users. Medical History Anxiety Dyspnea on exertion Endothelial dysfunction of coronary artery Hilar lymphadenopathy History of 2019 novel coronavirus disease (COVID-19) History of smoking less than 10 pack years Liver lesion Mediastinal lymphadenopathy Multi
[2023-07-31 20:23] LABS: Basophils # 0.1 K/mm3 (0-0.2); Basophils % 0.3 % (0.1-2.0); Eosinophils # 0.2 K/mm3 (0.0-0.4); Eosinophils % 1.6 % (0.1-12.0); Hematocrit 45.8 % (37.0-47.0); Hemoglobin 14.9 g/dL (12.2-16.2); Lymphocytes # 2.1 K/mm3 (0.7-4.5); Lymphocytes % 13.9 % (10-50); Mean Corpuscular HGB Conc 32.5 g/dL (31.8-35.4); Mean Platelet Volume 8.6 fl (7.4-10.4); Monocytes # 0.6 K/mm3 (0.1-1.0); Monocytes % 4.4 % (1.7-9.3); Neutrophils # 11.8 K/mm3 (1.8-7.8); Neutrophils % 79.8 % (37.0-80.0); Platelet Count 261 K/mm3 (142-424); Red Blood Count 5.32 M/mm3 (4.20-5.40); Red Cell Distribution Width 13.8 % (11.5-17.5); White Blood Count 14.8 K/mm3 (4.8-10.8)
[2023-07-31 20:37] LABS: Alanine Aminotransferase 30 U/L (12-78); Albumin Level 4.9 g/dl (3.5-5.0); Albumin/Globulin Ratio 1.4 (1.1-1.8); Alkaline Phosphatase 128 U/L (38-126); Anion Gap 12.7 mEq/L (5-15); Aspartate Amino Transferase 32 U/L (14-36); Bilirubin,Total 0.4 mg/dl (0.2-1.3); Blood Urea Nitrogen 19 mg/dl (7-17); Calcium 9.2 mg/dl (8.4-10.2); Carbon Dioxide 23 mmol/L (22.0-30.0); Chloride 106 mmol/L (98-107); Creatinine Clearance Estimated 144 mL/min (50-200); Estimated Glomerular Filt Rate 90 ml/min (>60); GFR (African American) 109 ML/MIN (>60); Globulin 3.4 g/dL (1.3-3.2); Glucose 149 mg/dl (74-100); Lipase 69 U/L (23-300); Potassium 3.7 mmoL/L (3.5-5.1); Sodium 138 mmol/L (136-145); Total Protein,Serum 8.3 g/dl (6.3-8.2)
[2023-07-31 20:59] LABS: Adenovirus F 40/41, stool Not Detected (NotDetected); Astrovirus Not Detected (NotDetected); Campylobacter Not Detected (NotDetected); Cryptosporidium Not Detected (NotDetected); Cyclospora Cayetanesis Not Detected (NotDetected); Entamoeba histolytica Not Detected (NotDetected); Enteroaggregative E coli Not Detected (NotDetected); Enteropathogenic E coli Not Detected (NotDetected); Enterotoxigenic E coli Not Detected (NotDetected); Giardia lamblia Not Detected (NotDetected); Norovirus Not Detected (NotDetected); Plesimonas Shigalloides, PCR Not Detected (NotDetected); Rotavirus A Not Detected (NotDetected); Salmonella, PCR Not Detected (NotDetected); Sapovirus Not Detected (NotDetected); Shiga-like toxin E coli Not Detected (NotDetected); Shigella Enterovasive E coli Not Detected (NotDetected); Vibrio Cholerae Not Detected (NotDetected); Vibrio, PCR Not Detected (NotDetected); Yersinia Entercolitica, PCR Not Detected (NotDetected)
[2023-07-31 21:01] LABS: Coronavirus 19, PCR Not Detected (NotDetected); Influenza A, PCR Not Detected (NotDetected); Influenza B, PCR Not Detected (NotDetected)
--- NOTE | 2023-07-31 21:06 | PC.NURSE ---
provided patient with drink for PO challenge
[2023-07-31 21:45] VITALS: BP 134/68; PULSE 80; O2SAT 98
[2023-07-31 22:03] VITALS: BP 128/63; PULSE 81; RESP 16; TEMP 36.9; O2SAT 98
[2023-08-05 03:36] LABS: Clostridium Difficile A/B, PCR Detected (NotDetected)
--- NOTE | 2023-08-05 03:57 | PC.NURSE ---
received positive stool for c-diff. Notified provider Alicia Smyth DO who gave an order for Vancomycin oral and sent it to [facility]. Will advise dayshift charge to contact patient.
--- NOTE | 2023-08-05 07:40 | PC.NURSE ---
PT CONTACTED AT THIS TIME, NOTIFIED OF STOOL PCR RESULTS. RX SUBMITTED TO [facility]. PT INSTRUCTED TO FOLLOW-UP WITH PCP. QUESTIONS ENCOURAGED AND ANSWERED AT THIS TIME. PT V/U
--- NOTE | 2023-08-05 16:17 | PC.NURSE ---
PT VANCOMYCIN NOT APPROVED BY INSURANCE. SPOKE WITH PHARMACY ([facility]) AND OLIVIA AT [facility]S OFFICE (PCP) TO ARRANGE PRIOR AUTHORIZATION FOR MED APPROVAL. MEDICATION RX RE-SENT FROM PCP AND OLIVIA AT PCP OFFICE WILL COMPLETE PA FORM, MEDICATION HAS NOT BEEN APPROVED AT THIS TIME
--- NOTE | 2023-08-05 17:12 | PC.NURSE ---
MEDICATION APPROVED, PT NOTIFIED
== END 2023-07-31 22:05 | disposition home or self-care (01) ==
PROVIDERS: Emergency Provider Emergency Medicine; PCP Nurse Practitioner Family
DX: R10.9 Unspecified abdominal pain (principal); R11.2 Nausea with vomiting, unspecified; R19.7 Diarrhea, unspecified
CPT/HCPCS: 80053; 83690; 85025; 87507; 87636; 96361; 96374; 99285; J2405

== ENCOUNTER 2023-11-07 14:36 | Outpatient (CLI) | payer MEDICAID, SELFPAY ==
--- NOTE | 2023-11-07 14:36 | CT_ITS ---
FINAL REPORT TECHNIQUE: Axial images were obtained from the lung apex to the mid abdomen by computed tomography. Coronal reformatted images were obtained. This study was performed with techniques to keep radiation doses as low as reasonably achievable, (ALARA). Individualized dose reduction techniques using automated exposure control or adjustment of mA and/or kV according to the patient''s size were employed. CLINICAL HISTORY: 6-month follow-up COMPARISON: 04/13/2023 FINDINGS: There is no axillary or hilar adenopathy. Mild mediastinal adenopathy is stable. Heart size is normal. There is no pericardial or pleural effusion. There are multiple bilateral noncalcified pulmonary nodules. A nodule in the medial right upper lobe seen on image 15 measures 7 mm and previously measured 7 mm. In the posterior right upper lobe, on image 26, a nodule measures 5 mm and previously measured 5 mm. A 5 mm left upper lobe nodule seen on image 32 is stable. There are multiple other bilateral pulmonary nodules which are visually stable. No new mass or nodule is identified. Limited images of the upper abdomen demonstrate a probable small cyst in the posterior liver dome. IMPRESSION: Multiple stable bilateral noncalcified pulmonary nodules. A 12-month follow-up chest CT is recommended. Reviewed, Interpreted and Dictated by Tomás Stanley III, MD Transcribed by Xiomara Parsons Authenticated and [facility]
== END 2023-11-07 23:59 ==
LOC: RAD 14:36
PROVIDERS: PCP Nurse Practitioner Family; Visit Provider Internal Medicine Pulmonary Disease
DX: R91.8 Other nonspecific abnormal finding of lung field (principal)
CPT/HCPCS: 71250

== ENCOUNTER 2024-02-22 14:00 | Outpatient (CLI) | payer MEDICAID, SELFPAY ==
[2024-02-22 14:35] LABS: Basophils # 0.1 K/mm3 (0-0.2); Basophils % 0.8 % (0.1-2.0); Eosinophils # 0.2 K/mm3 (0.0-0.4); Eosinophils % 2.1 % (0.1-12.0); Hematocrit 42.9 % (37.0-47.0); Hemoglobin 13.9 g/dL (12.2-16.2); Lymphocytes # 1.6 K/mm3 (0.7-4.5); Lymphocytes % 18.3 % (10-50); Mean Corpuscular HGB Conc 32.5 g/dL (31.8-35.4); Mean Corpuscular Hemoglobin 28.3 pg (27.0-31.2); Mean Platelet Volume 8.7 fl (7.4-10.4); Monocytes # 0.5 K/mm3 (0.1-1.0); Monocytes % 6.2 % (1.7-9.3); Neutrophils # 6.2 K/mm3 (1.8-7.8); Neutrophils % 72.6 % (37.0-80.0); Platelet Count 219 K/mm3 (142-424); Red Blood Count 4.93 M/mm3 (4.20-5.40); Red Cell Distribution Width 14.1 % (11.5-17.5); White Blood Count 8.5 K/mm3 (4.8-10.8)
[2024-02-22 14:39] LABS: Alanine Aminotransferase 25 U/L (12-78); Albumin Level 4.1 g/dl (3.5-5.0); Alkaline Phosphatase 97 U/L (38-126); Aspartate Amino Transferase 25 U/L (14-36); Bilirubin,Indirect 0.5 mg/dL (0.0-0.9); Bilirubin,Total 0.5 mg/dl (0.2-1.3); Bilirubin,Unconjugated 0.6 mg/dL (0.0-1.1); Blood Urea Nitrogen 15 mg/dl (7-17); Calcium 9.4 mg/dl (8.4-10.2); Carbon Dioxide 27 mmol/L (22.0-30.0); Chloride 107 mmol/L (98-107); Chol/HDL Ratio 4.4 (1-3.5); Cholesterol 181 mg/dl (140-200); Estimated Glomerular Filt Rate 108 ml/min (>60); GFR (African American) 130 ML/MIN (>60); Glucose 93 mg/dl (74-100); HDL Cholesterol 41 mg/dl (40-60); Sodium 140 mmol/L (136-145); Total Protein,Serum 6.6 g/dl (6.3-8.2); Triglycerides 104 mg/dl (30-150); VLDL Cholesterol 21 mg/dL (0-40)
[2024-02-22 14:50] LABS: Direct LDL Cholesterol 115.59 mg/dL (100-129)
== END 2024-02-22 23:59 | disposition home or self-care (01) ==
LOC: LAB 14:02
PROVIDERS: PCP Nurse Practitioner Family; Visit Provider Nurse Practitioner
DX: I25.10 Atherosclerotic heart disease of native coronary artery without angina pectoris (principal)
CPT/HCPCS: 36415; 80048; 80061; 80076; 85025

== ENCOUNTER 2024-03-13 10:07 | Emergency (ER) | payer MEDICAID, SELFPAY ==
--- NOTE | 2024-03-13 10:12 | ECG_ITS ---
APPROVED REPORT Exam: Resting ECG HR:86 bpm ECG Measurements Heart Rate 86 AXES MD 157 P 51 QRSd 99 QRS 47 QT 346 T 41 QTc 389 Conclusion SINUS RHYTHM NORMAL ECG Electronically signed by : BEST RUELAS, 03/13/2024 15:28:48
[2024-03-13 10:30] VITALS: BP 163/91; PULSE 76; O2SAT 99
--- NOTE | 2024-03-13 10:32 | PC.NURSE ---
DR RUELAS AT BEDSIDE
[2024-03-13 10:35] VITALS: BP 154/88; PULSE 86; RESP 20; TEMP 36.8; O2SAT 98; BMI 32.3
--- NOTE | 2024-03-13 10:37 | CT_ITS ---
FINAL REPORT CLINICAL HISTORY: fall, pain, L neck going down L arm COMPARISON: 04/13/2023 FINDINGS: Thin section axial CT images of the chest were obtained with contrast. 3D reformatted images were also obtained. This study was performed with techniques to keep radiation doses as low as reasonably achievable (ALARA). Individualized dose reduction techniques using automated exposure control or adjustment of mA and/or kV according to the patient's size were employed. Motion artifact is identified on many of the images. There is no evidence of pulmonary embolism. There is no evidence of thoracic aortic aneurysm or dissection. There is mild mediastinal adenopathy, visually stable. Findings are nonspecific. There is mild atelectasis. There is no pneumothorax. Multiple pulmonary nodules are identified. There is a medial right upper lobe nodule measuring 7 mm, previously measured 7 mm. Multiple other nodules are visually stable. Patient is status post cholecystectomy. There is a small cyst in the posterior right liver dome. There is a 12 mm mass in the upper pole of the left kidney which is nonspecific. IMPRESSION: No pulmonary embolism or dissection. Stable pulmonary nodules and mediastinal adenopathy, may be inflammatory. Left hepatic mass which is not definitely a simple cyst. Recommend renal mass protocol CT. Reviewed, Interpreted and Dictated by Tomás Stanley III, MD Transcribed by Ashleigh Polanco Authenticated and [facility]
--- NOTE | 2024-03-13 10:37 | CT_ITS ---
FINAL REPORT CLINICAL HISTORY: fall, pain, L neck going down L arm COMPARISON: 12/10/2021 CTA soft tissue neck FINDINGS: Axial CT images of the cervical spine were obtained without contrast. Sagittal and coronal reformatted images were also obtained. This study was performed with techniques to keep radiation doses as low as reasonably achievable (ALARA). Individualized dose reduction techniques using automated exposure control or adjustment of mA and/or kV according to the patient''s size were employed. There is no evidence of fracture or dislocation. The bony alignment is normal. There is mild degenerative change with small osteophytes. There is no evidence of canal stenosis. No paraspinous soft tissue abnormality is seen. Limited images of the upper thorax are unremarkable. IMPRESSION: No fracture or acute bony abnormality identified. Reviewed, Interpreted and Dictated by Tomás Stanley III, MD Transcribed by Mimi Katz Authenticated and . [facility]
--- NOTE | 2024-03-13 10:37 | CT_ITS ---
FINAL REPORT CLINICAL HISTORY: fall, pain, L neck going down L arm FINDINGS: Axial CT images of the thoracic spine were obtained without contrast. Sagittal and coronal reformatted images were also obtained. This study was performed with techniques to keep radiation doses as low as reasonably achievable (ALARA). Individualized dose reduction techniques using automated exposure control or adjustment of mA and/or kV according to the patient''s size were employed. There is no evidence of fracture. There are mild degenerative changes with osteophytes. The vertebral alignment is normal. There is no evidence of significant canal stenosis. No paraspinous soft tissue abnormality is identified. IMPRESSION: No fracture or acute bony abnormality. Reviewed, Interpreted and Dictated by Tomás Stanley III, MD Transcribed by Ashleigh Polanco Authenticated and [facility]
--- NOTE | 2024-03-13 10:46 | HMH.EDGENADL ---
Discharge Plan Disposition Patient Disposition: Home, Self-Care Condition: Good Prescriptions Prescriptions: New naproxen 500 mg tablet 500 mg PO BID Qty: 20 0RF lidocaine [Lidoderm] 5 % adhesive patch,medicated 1 patch topical DAILY Qty: 15 0RF Rx Instructions: leave on most painful area for up to 12 hrs methocarbamol 750 mg tablet 750 mg PO Q8H PRN (Reason: pain) Qty: 20 0RF No Action pravastatin 10 mg tablet 10 mg PO DAILY citalopram 10 mg tablet 10 mg PO amlodipine 2.5 mg tablet 2.5 mg PO DAILY cholecalciferol (vitamin D3) 25 mcg (1,000 unit) tablet See Rx Instructions .ROUTE .COMPLEX Qty: 90 3RF Dose Instruction: TAKE ONE TABLET BY MOUTH ONCE A DAY Rx Instructions: TAKE ONE TABLET BY MOUTH ONCE A DAY loratadine 10 mg tablet See Rx Instructions .ROUTE .COMPLEX Qty: 30 3RF Dose Instruction: TAKE ONE TABLET BY MOUTH ONCE A DAY Rx Instructions: TAKE ONE TABLET BY MOUTH ONCE A DAY aspirin 81 mg tablet,delayed release (DR/EC) 81 mg PO DAILY Qty: 100 3RF Referrals Follow up/Referrals: Riri Barahona APRN [Primary Care Provider] - See instructions Activity Restrictions/Add. Instructions Additional Instructions/Restrictions: You were evaluated in the emergency department today. 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 You may also take Tylenol every 4-6 hours as needed for pain. You have a lesion of your liver noted on CT scan, which is likely a benign cyst. I recommend close follow-up outpatient for this for repeat imaging. Your primary care provider can help arrange this. Return to the emergency department for new or worsening symptoms. Clinical Impressions Clinical Impression: Cervical radiculopathy, Lesion of liver Stand Alone Forms Stand Alone Forms: Work/School Release Instructions Patient Instructions: DI for Cervical Radiculopathy, DI for Acute Pain -- Adult Print Language Print Language: Kazakh Discharge ED Provider: Miesha Smyth General Adult HPI General Chief complaint: PAIN Stated complaint: Left shoulder and arm pain Time Seen by Provider: 03/13/24 10:24 Mode of Arrival: Ambulatory Source of Information: Patient Limitations: No Limitations Description of Symptoms (Recalled from ER Triage Doc. by RN): pt to ed c/o shoulder pain that radiates down her arm. pt reports a stiff neck associated. pt reports the pain is sharp in nature. History of Present Illness HPI narrative: This patient is a 48-year-old female with a history of hypertension, hyperlipidemia, prior smoking history, and history of lung nodules presented to the emergency department for evaluation with concern for left shoulder and left arm pain. Patient states that she fell when dining room chair broke underneath her about a week ago, and she has had some mild upper back pain radiating down her left arm since then. Today, however, she states she was not okay. She states that she had a panic attack and felt like she could not get her breath and was having significant worsening in pain going down her left arm. She also started to develop some mild neck stiffness. The pain is sharp and seems to be worsened with movement and certain position. She also has some tingling in her fingertips of her left hand. No other concerns noted. No infectious symptoms. No current chest pain or shortness of breath. Related Data Home Medications ?Medication ?Instructions ?Recorded ?Confirmed amlodipine 2.5 mg tablet 2.5 mg PO DAILY High blood pressure 07/22/22 02/22/24 pravastatin 10 mg tablet 10 mg PO DAILY 12/29/22 02/22/24 citalopram 10 mg tablet 10 mg PO 01/12/23 02/22/24 Previous Rx's ?Medication ?Instructions ?Recorded cholecalciferol (vitamin D3) 25 See Rx Instructions .Route 06/02/23 mcg (1,000 unit) tablet .COMPLEX #90 tabs loratadine 10 mg tablet See Rx Instructions .Route 06/29/23 .COMPLEX #30 tabs aspirin 81 mg tablet,delayed 81 mg PO DAILY #100 tabs 02/29/24 release lidocaine 5 % topical patch 1 patch topical DAILY #15 ea 03/13/24 (Lidoderm) methocarbamol 750 mg tablet 750 mg PO Q8H PRN pain #20 tabs 03/13/24 naproxen 500 mg tablet 500 mg PO BID #20 tabs 03/13/24 Allergies Allergy/AdvReac Type Severity Reaction Status Date / Time No Known Allergies Allergy Verified 02/22/24 13:19 [facility] Disclaimer: The information contained in this section may have been updated after the patient was seen, as this information can be updated by other users. Medical History Hyperlipidemia Liver lesion History of smoking less than 10 pack years Mediastinal lymphadenopathy Hilar lymphadenopathy Multiple lung nodules on CT Dyspnea on exertion Endothelial dysfunction of coronary artery Anxiety Surgical History History of breast biopsy History of tonsillectomy History of laparoscopic cholecystectomy Family History Other Hypertension Leukemia Social History Smoking Status: Never smoker alcohol intake: never substance use type: denies use current occupational status: employed Travel in the last 8 weeks: None household members: spouse and family housing: house caffeine: Yes ROS Obtained: Yes All systems reviewed & no additional complaints except as documented Physical Exam General General appearance: alert, in no apparent distress and obese Head Head exam: atraumatic and normocephalic Eye Eye exam: Present normal appearance, PERRL and EOMI ENT ENT exam: Present normal exam, normal oropharynx, mucous membranes moist and normal external ear exam Neck Neck exam: Present normal inspection, full ROM and trachea midline; Absent tenderness Chest Chest inspection: Present normal inspection and symmetric chest wall rise; Absent tenderness Respiratory Respiratory exam: Present normal lung sounds bilaterally; Absent respiratory distress, wheezes, stridor or accessory muscle use Cardiovascular Cardiovascular exam: Present regular rate and normal rhythm Abdominal Exam Abdominal exam: Present soft; Absent distention, tenderness or guarding Extremities Exam Extremities exam: Present full ROM, tenderness (Left shoulder/upper back), normal capillary refill and other (Neurovascularly intact in the left upper extremity with normal sensation and motor. All compartments soft.); Absent edema Back Exam Back exam: Present full ROM, muscle spasm (Left upper trap/paraspinal tenderness to palpation) and paraspinal tenderness (Left cervical thoracic spine); Absent vertebral tenderness Neurological Exam Neurological exam: Present alert, oriented X3, CN II-XII intact and normal gait; Absent motor sensory deficit Psychiatric Psychiatric exam: Present anxious Skin Skin exam: Present warm and dry Medical Decision Making Medical Records Medical records reviewed: Yes I reviewed the patient's medical records. Vinicius Inquiry Pt receiving controlled substance: No Vital Signs: 03/13/24 10:30 03/13/24 10:35 03/13/24 11:00 Temperature 98.2 F Temperature Source Oral Pulse Rate 76 80 Pulse Rate [Left Radial] 86 Respiratory Rate 20 Blood Pressure 163/91 H 174/94 H Blood Pressure [Right Arm] 154/88 H Blood Pressure Mean 116 119 Blood Pressure Mean [Right Arm] 110 Blood Pressure Source Blood Pressure Position 02 Sat by Pulse Oximetry 99 98 96 Oxygen Delivery Method Room Air 03/13/24 13:45 Temperature 97.9 F Temperature Source Oral Pulse Rate 72 Pulse Rate [Left Radial] Respiratory Rate 18 Blood Pressure 144/78 H Blood Pressure [Right Arm] Blood Pressure Mean Blood Pressure Mean [Right Arm] Blood Pressure Source Automatic Cuff Blood Pressure Position Sitting 02 Sat by Pulse Oximetry Oxygen Delivery Method Room Air Lab Data Lab results reviewed: Yes I reviewed the patient's lab results. Lab Results 03/13/24 10:15: WBC 10.4, RBC 5.09, Hgb 14.5, Hct 45.2, MCV 88.8, MCH 28.6, MCHC 32.2, RDW 13.9, Plt Count 258, MPV 8.8, Neut % (Auto) 71.4, Lymph % (Auto) 19.5, Wharton % (Auto) 5.9, Eos % (Auto) 2.4, Baso % (Auto) 0.9, Neut # (Auto) 7.5, Lymph # (Auto) 2.0, [place]arton # (Auto) 0.6, Eos # (Auto) 0.3, Baso # (Auto) 0.1, Sodium 141, Potassium 3.8, Chloride 105, Carbon Dioxide 29, Anion Gap 10.8, BUN 21 H, Creatinine 0.80, Estimated Creat Clear 126, Estimated GFR 77, Est GFR ( Amer) 93, Glucose 109 H, Calcium 9.2, Total Bilirubin 0.5, AST 34, ALT 29, Alkaline Phosphatase 89, Troponin I < 0.01, Total Protein 7.3, Albumin 4.5, Globulin 2.8, Albumin/Globulin Ratio 1.6 03/13/24 10:15 03/13/24 10:15 Orders (Tests/Meds): ED MEDICATIONS Discontinued Medications Generic Name Dose Route Start Last Admin Trade Name Freq PRN Reason Stop Dose Admin Acetaminophen 1,000 mg 03/13/24 10:39 03/13/24 10:52 Acetaminophen 500mg Tab PO 03/13/24 10:40 1,000 mg ONCE ONE Administration Iopamidol 80 ml 03/13/24 11:47 03/13/24 11:48 Iopamidol-370 (76%);100ml Bottle IV 03/13/24 11:48 80 ml ONCE ONE Administration Ketorolac Tromethamine 15 mg 03/13/24 10:39 03/13/24 10:52 Ketorolac 30mg/Ml Vial IV 03/13/24 10:40 15 mg ONCE ONE Administration Lidocaine 1 each 03/13/24 10:39 03/13/24 10:52 Lidocaine 5% Transdermal Patch TP 03/13/24 10:40 1 each ONCE ONE Administration Methocarbamol 500 mg 03/13/24 10:39 03/13/24 10:52 Methocarbamol 500mg Tablet PO 03/13/24 10:40 500 mg ONCE ONE Administration Sodium Chloride 10 ml 03/13/24 11:47 03/13/24 11:48 Sodium Chloride 0.9% 10ml Syr (Rad Only) IV 03/13/24 11:48 10 ml ONCE ONE Administration Sodium Chloride 50 ml 03/13/24 11:47 03/13/24 11:48 0.9 % Sodium Chloride 50 Ml Vial IV 03/13/24 11:48 50 ml ONCE ONE Administration ORDERS Category Date Time Status CT cervical spine wo con Stat Cat Scan 03/13/24 10:[address] thoracic spine wo con Stat Cat Scan 03/13/24 10:37 Completed CTA Chest [CT angio chest - dissection] Stat Cat Scan 03/13/24 10:37 Completed Shoulder XR left minimum 2 views [XR shoulder LT min 2V Exams 03/13/24 10:56 Completed ] Stat Complete Blood Count Auto Diff Stat Lab 03/13/24 10:15 Completed Comprehensive Metabolic Panel Stat Lab 03/13/24 10:15 Completed Trop I [Troponin I] Stat Lab 03/13/24 10:15 Completed ECG Data Tracing #1: I reviewed this ECG and interpreted as documented below: Normal sinus rhythm with a ventricular rate of [address] changes concerning for ischemia. Normal axis and intervals ECG initial impression date: 03/13/24 ECG initial impression time: 10:13 Medical Decision Narrative: In summary, this patient is a 48-year-old female presenting to the Emergency Department for evaluation of left upper back/shoulder pain radiating down her left arm as well as panic attack that happened today. Differential diagnoses considered include but are not limited to ACS, dysrhythmia, musculoskeletal strain/sprain, cervical radiculopathy, thoracic radiculopathy. Ruling out the most morbid conditions drove assessment. It should be noted patient's history includes hypertension, hyperlipidemia which may or may not be at goal therapy. This complicates all aspects of care by increasing patient's risk for morbidity. On exam, the patient is sitting upright in bed in no acute distress. She is mildly hypertensive, but otherwise vitals are reassuring. She has no focal neurologic deficits and has equal pulses bilaterally. She does have left neck and upper back paraspinal muscle tenderness and hypertonicity with pain radiating down her left arm. Workup included CBC, CMP, troponin, CTA chest, CT C/T-spine, and x-rays of the left shoulder. She was given oral Tylenol, topical Lidoderm patch, oral Robaxin, and IV Toradol for symptomatic improvement. I independently interpreted CT scans and x-rays prior to the radiologist read and noted no obvious acute fracture. No aortic dissection. Please see their read for final interpretation. Labs were obtained that demonstrated no acutely concerning abnormalities. Troponin negative. On reassessment, patient had good improvement after administration of interventions above. She is feeling better and remains neurologically intact. Vitals are normal on cardiac telemetry. Blood pressure improved after treatment of pain.. She did have incidental finding of liver lesion on CT scan, which I notified her of. She states she is already aware of this and has seen hepatology in the past. At this time, patient was deemed to be appropriate for discharge home with instructions for supportive management of likely cervical radiculopathy. She was given prescriptions for Robaxin, naproxen, and Lidoderm patches. She was given instructions for close outpatient follow-up and strict return precautions. She was discharged after all questions were answered. Critical Care Critical Care Time Critical Care Time: No
[2024-03-13] MEDS: ACETAMINOPHEN 500MG TAB 1000 MG PO (10:52)
[2024-03-13] MEDS: LIDOCAINE 5% TRANSDERMAL PATCH 1 EACH TP (10:52)
[2024-03-13] MEDS: KETOROLAC 30MG/ML VIAL 15 MG IV (10:52)
[2024-03-13] MEDS: METHOCARBAMOL 500MG TABLET 500 MG PO (10:52)
[2024-03-13 10:55] LABS: Basophils # 0.1 K/mm3 (0-0.2); Basophils % 0.9 % (0.1-2.0); Eosinophils # 0.3 K/mm3 (0.0-0.4); Eosinophils % 2.4 % (0.1-12.0); Hematocrit 45.2 % (37.0-47.0); Hemoglobin 14.5 g/dL (12.2-16.2); Lymphocytes % 19.5 % (10-50); Mean Corpuscular HGB Conc 32.2 g/dL (31.8-35.4); Mean Corpuscular Hemoglobin 28.6 pg (27.0-31.2); Mean Corpuscular Volume 88.8 fl (81-99); Mean Platelet Volume 8.8 fl (7.4-10.4); Monocytes # 0.6 K/mm3 (0.1-1.0); Monocytes % 5.9 % (1.7-9.3); Neutrophils # 7.5 K/mm3 (1.8-7.8); Neutrophils % 71.4 % (37.0-80.0); Platelet Count 258 K/mm3 (142-424); Red Blood Count 5.09 M/mm3 (4.20-5.40); Red Cell Distribution Width 13.9 % (11.5-17.5); White Blood Count 10.4 K/mm3 (4.8-10.8)
--- NOTE | 2024-03-13 10:56 | XR_ITS ---
FINAL REPORT CLINICAL HISTORY: fall, pain FINDINGS: Left shoulder Three views were obtained. There is no acute fracture or dislocation. There is mild AC joint degenerative change. No soft tissue abnormality is identified. IMPRESSION: No acute process. Reviewed, Interpreted and Dictated by Tomás Stanley III, MD Transcribed by Ashleigh Polanco Authenticated and [facility]
[2024-03-13 10:59] LABS: Albumin Level 4.5 g/dl (3.5-5.0); Chloride 105 mmol/L (98-107); Potassium 3.8 mmoL/L (3.5-5.1); Sodium 141 mmol/L (136-145)
[2024-03-13 11:00] VITALS: BP 174/94; PULSE 80; O2SAT 96
[2024-03-13 11:01] LABS: Blood Urea Nitrogen 21 mg/dl (7-17); Creatinine Clearance Estimated 126 mL/min (50-200); Estimated Glomerular Filt Rate 77 ml/min (>60); GFR (African American) 93 ML/MIN (>60)
[2024-03-13 11:02] LABS: Alanine Aminotransferase 29 U/L (12-78); Albumin/Globulin Ratio 1.6 (1.1-1.8); Alkaline Phosphatase 89 U/L (38-126); Anion Gap 10.8 mEq/L (5-15); Aspartate Amino Transferase 34 U/L (14-36); Bilirubin,Total 0.5 mg/dl (0.2-1.3); Calcium 9.2 mg/dl (8.4-10.2); Carbon Dioxide 29 mmol/L (22.0-30.0); Globulin 2.8 g/dL (1.3-3.2); Glucose 109 mg/dl (74-100); Total Protein,Serum 7.3 g/dl (6.3-8.2)
[2024-03-13 11:14] LABS: Troponin I < 0.01 ng/ml (0.00-0.034)
--- NOTE | 2024-03-13 11:44 | PC.NURSE ---
PT RETURNED FROM CT
[2024-03-13] MEDS: 0.9 % SODIUM CHLORIDE 50 ML VIAL IV (11:48)
[2024-03-13] MEDS: SODIUM CHLORIDE 0.9% 10ML SYR (RAD ONLY) 10 ML IV (11:48)
[2024-03-13] MEDS: IOPAMIDOL-370 (76%);100ML BOTTLE 80 ML IV (11:48)
[2024-03-13 13:45] VITALS: BP 144/78; PULSE 72; RESP 18; TEMP 36.6; O2SAT 97
== END 2024-03-13 13:51 | disposition home or self-care (01) ==
PROVIDERS: Emergency Provider Emergency Medicine; PCP Nurse Practitioner Family
DX: M54.12 Radiculopathy, cervical region (principal); M25.111 Fistula, right shoulder; M79.602 Pain in left arm; R20.2 Paresthesia of skin; W07.XXXA Fall from chair, initial encounter; I10 Essential (primary) hypertension; E78.5 Hyperlipidemia, unspecified; Z87.891 Personal history of nicotine dependence; R91.8 Other nonspecific abnormal finding of lung field
CPT/HCPCS: 71275; 72125; 72128; 73030; 80053; 84484; 85025; 93005; 96374; 99285; J1885; Q9967

== ENCOUNTER 2024-05-21 09:53 | Outpatient (CLI) | payer MEDICAID, SELFPAY ==
[2024-05-21 15:19] LABS: Microscopic, Urine URINE MICROSCOPIC (MICROSCOPIC)
[2024-05-21 15:37] LABS: Appearance,Urine CLEAR (Clear); Bilirubin,Urine Negative (Negative); Blood, Urine 1+ (Negative); Color,Urine YELLOW (Yellow); Glucose,Urine (UA) Negative (Negative); Ketones,Urine Negative (Negative); Leukocyte Esterase,Urine Negative (Negative); Nitrate,Urine Negative (Negative); Protein,Urine Negative (Negative); Specific Gravity, Urine 1.025 (1.005-1.030); Urobilinogen,Urine 0.2 EU/dl (0.2)
[2024-05-21 15:50] LABS: Bacteria,Urine Trace /lpf
[2024-05-31 15:33] LABS: Atopobium vaginae High - 2 Score (.); BVAB2 Low - 0 Score (.); Candida albicans NAA Negative (Negative); Candida glabrata Negative (Negative); Chlamydia Trachomatis NAA Negative (Negative); HSV 1 NAA Negative (Negative); HSV 2 NAA Negative (Negative); Megasphaera 1 High - 2 Score (.); Neisseria gonorrhoeae NAA Negative (Negative); Trich vag NAA Negative (Negative)
== END 2024-05-21 23:59 | disposition home or self-care (01) ==
LOC: LAB.DROPOF 05-22 09:53
PROVIDERS: PCP Urology; Visit Provider Urology
DX: R31.9 Hematuria, unspecified (principal); N76.0 Acute vaginitis; N39.0 Urinary tract infection, site not specified
CPT/HCPCS: 81001; 87086; 87491; 87529; 87591; 87661; 87798; 87801

== ENCOUNTER 2024-05-24 15:47 | Outpatient (CLI) | payer MEDICAID, SELFPAY ==
--- NOTE | 2024-05-24 15:50 | MM_ITS ---
PROCEDURE INFORMATION: Exam: MG Bilateral Screening 3D Mammography Exam date and time: 05/24/2024 3:40 PM Age: 49 years old Clinical indication: Screening examination. TECHNIQUE: Imaging protocol: Bilateral Screening tomosynthesis and 2D mammography including computer-aided detection (CAD) when performed. COMPARISON: 1. MG MM DIG SCREENING MAMM BI W/CAD 04/29/2023 8:31 AM 2. MG MM DIG SCREENING MAMM BI W/CAD 03/31/2022 1:00 PM FINDINGS: MAMMOGRAPHY: Breast composition: The breasts are extremely dense, which lowers the sensitivity of mammography. Mass: None. Architectural distortion: None. Calcifications: No suspicious calcifications. Asymmetric density: None. Skin thickening: None. Axillary adenopathy: None. IMPRESSION: No mammographic evidence of malignancy. Annual screening is recommended unless otherwise clinically indicated. ASSESSMENT: BI-RADS Category 1: Negative.
== END 2024-05-24 23:59 | disposition home or self-care (01) ==
LOC: RAD 15:47
PROVIDERS: PCP Nurse Practitioner Family; Visit Provider Nurse Practitioner Obstetrics & Gynecology
DX: Z12.31 Encounter for screening mammogram for malignant neoplasm of breast (principal)
CPT/HCPCS: 77063; 77067

== ENCOUNTER 2024-06-04 07:59 | Outpatient (CLI) | payer MEDICAID, SELFPAY ==
--- NOTE | 2024-06-04 08:00 | CT_ITS ---
PROCEDURE INFORMATION: Exam: CT Abdomen And Pelvis Without And With Contrast Exam date and time: 06/04/2024 8:12 AM Age: 49 years old Clinical indication: Abdominal pain; Additional info: Renal cyst TECHNIQUE: Imaging protocol: Computed tomography of the abdomen and pelvis without and with contrast. Radiation optimization: All CT scans at this facility use at least one of these dose optimization techniques: automated exposure control; mA and/or kV adjustment per patient size (includes targeted exams where dose is matched to clinical indication); or iterative reconstruction. Contrast material: ISOVUE 370; Contrast volume: 75 ml; Contrast route: INTRAVENOUS (IV); COMPARISON: CT ABDOMEN PELVIS WO/W CON 01/11/2023 8:45 AM FINDINGS: Lungs: 6 mm pleural-based nodule in the lingula series 3, image 2 6 mm nodule right middle lobe series 3, image 2. 5.9 mm nodule right middle lobe series 3, image 5. Liver: Subcentimeter low attenuation area in the liver is too small for characterization. Gallbladder and biliary ducts: Cholecystectomy Pancreas: Normal. No ductal dilation. Spleen: Normal. No splenomegaly. Adrenal glands: Normal. No mass. Kidneys and ureters: 11 mm simple cyst upper pole left kidney. . No follow-up imaging recommended . Stomach and bowel: Unremarkable. No obstruction. No mucosal thickening. Appendix: Normal appendix Intraperitoneal space: Unremarkable. No free air. No significant fluid collection. Vasculature: Unremarkable. No abdominal aortic aneurysm. Lymph nodes: Unremarkable. No enlarged lymph nodes. Urinary bladder: Unremarkable as visualized. Reproductive: Unremarkable as visualized. Bones/joints: Unremarkable. No acute fracture. Soft tissues: Unremarkable. IMPRESSION: 6 mm pleural-based nodule in the lingula series 3, image 2 6 mm nodule right middle lobe series 3, image 2. 5.9 mm nodule right middle lobe series 3, image 5. For patients at low risk (minimal or absent history of smoking and of other known risk factors), recommend CT Chest at 3-6 months, then consider CT Chest at 18-24 months. For patients at high risk (history of smoking or of other known risk factors), recommend CT Chest at 3-6 months, then CT Chest at 18-24 months. (Reference: Cinthia) References: Cinthia Toussaint et al. Guidelines for Management of Incidental Pulmonary Nodules Detected on CT Images: From the Fleischner Society 2017. Radiology. 2017;284(1):228-243. COMMENTS: Consistent with the [place] [employer]'s Incidental Findings Committee white paper (J Am Faina Radiol 2018): Any incidental renal lesion less than 1 cm or classified as too small to characterize, or any incidental cystic renal lesion characterized as simple-appearing, is likely benign. No follow-up imaging is recommended for these lesions per consensus recommendations based on imaging criteria.
[2024-06-04] MEDS: IOPAMIDOL-370 (76%);100ML BOTTLE 75 ML IV (08:24)
[2024-06-04] MEDS: SODIUM CHLORIDE 0.9% 10ML SYR (RAD ONLY) 10 ML IV (08:24)
== END 2024-06-04 23:59 | disposition home or self-care (01) ==
LOC: RAD 08:00
PROVIDERS: PCP Nurse Practitioner Family; Visit Provider Urology
DX: N28.1 Cyst of kidney, acquired (principal)
CPT/HCPCS: 74178; Q9967

== ENCOUNTER 2024-06-22 10:38 | Day surgery (SDC) | payer MEDICAID, SELFPAY ==
[2024-06-21 10:16] VITALS: BMI 30.7
[2024-06-22 10:53] VITALS: BP 140/54; PULSE 74; RESP 18; O2SAT 97
[2024-06-22] MEDS: 0.9 % SODIUM CHLORIDE 500 ML 25 ML IV (11:43)
--- NOTE | 2024-06-22 11:47 | P.PCN_ITS ---
[facility] Procedure Note Date: 06/22/24 Time: 11:47 Procedure Note:: Chart review: The patient is here for cystoscopy due to 10 red blood cells per high-powered field. Preop diagnosis: Hematuria Postop diagnosis: Hematuria Operative note: The patient was brought to the cystoscopy suite he was prepped and draped as standard. The patient has significant urethritis. This likely accounts for the microscopic hematuria. The bladder itself is [place] pink in color throughout. There is no evidence of bladder stone tumor hemorrhage or infection. The ureteral orifice ease are normal bilaterally. The patient tolerated the procedure well.
[2024-06-22 11:49] VITALS: BP 140/69; PULSE 66; RESP 18; TEMP 36.8; O2SAT 97
== END 2024-06-22 11:59 | disposition home or self-care (01) ==
PROVIDERS: PCP Nurse Practitioner Family; Visit Provider Urology
PROC: 0TJB8ZZ Inspection of Bladder, Via Natural or Artificial Opening Endoscopic (ICD-10-PCS; CPT 52000; principal; 2024-06-22 12:45)
DX: R31.9 Hematuria, unspecified (principal); N34.2 Other urethritis
CPT/HCPCS: 52000

== ENCOUNTER 2024-06-27 07:35 | Day surgery (SDC) | payer MEDICAID, SELFPAY ==
[2024-06-21 10:15] VITALS: BMI 30.7
[2024-06-27 07:55] VITALS: BP 141/92; PULSE 68; RESP 18; O2SAT 98
[2024-06-27] MEDS: LACTATED RINGERS 1000ML 1,000 ML 25 ML IV (08:01)
--- NOTE | 2024-06-27 08:05 | EXP.ANES.CKL ---
[facility] Disclaimer: The information contained in this section may have been updated after the patient was seen, as this information can be updated by other users. Medical History Hyperlipidemia Liver lesion History of smoking less than 10 pack years Mediastinal lymphadenopathy Hilar lymphadenopathy Multiple lung nodules on CT Dyspnea on exertion Endothelial dysfunction of coronary artery Anxiety Surgical History History of breast biopsy History of tonsillectomy History of laparoscopic cholecystectomy Family History Other Hypertension Leukemia Social History Smoking Status: Never smoker alcohol intake: never substance use type: denies use current occupational status: employed Travel in the last 8 weeks: None household members: spouse and family housing: house caffeine: Yes [facility] Anesthesia Checklist Patient Identification Patient Identification: Arm Band Structural Data Admitted From: Home Planned Operative Procedure/s: Colonoscopy Consent for Planned Operative Procedure(s) Verified: Yes Verified Documents: Surgical Consent and History and Physical NPO Status Verified Time NPO: 00:00 Additional verifications Anesthesia Reactions: No Hx Blood Transfusions: No Blood Transfusion Reaction: No Airway Assessment Mallampati Score:: Class II C-Spine Mobility Assessed: Yes TMJ Mobility Assessed: Yes Dentition: Good Dentition Neurological Assessment Level of Consciousness: Awake, Alert and Appropriate Anesthesia Plan Anesthesia Risk discussed: Yes Anesthesia Plan: Verified ASA Class: II Anesthesia Type: MAC
[2024-06-27 08:18] LABS: HCG Qualitative, Serum Negative (Negative)
--- NOTE | 2024-06-27 08:29 | P.HP_ITS ---
History of Present Illness *Admission Date: 06/27/24 *Reason for visit:: Screening for colon cancer/hepatic flexure syndrome *History of present illness: Mrs. Walker is a 49-year-old female who is here for initial screening colonoscopy. The examination is deemed medically necessary for colonoscopy. The patient has been seen, interviewed and examined prior to the procedure by both myself and the anesthesia provider. [facility] Disclaimer: The information contained in this section may have been updated after the patient was seen, as this information can be updated by other users. Medical History Hyperlipidemia Liver lesion History of smoking less than 10 pack years Mediastinal lymphadenopathy Hilar lymphadenopathy Multiple lung nodules on CT Dyspnea on exertion Endothelial dysfunction of coronary artery Anxiety Surgical History History of breast biopsy History of tonsillectomy History of laparoscopic cholecystectomy Family History Other Hypertension Leukemia Social History Smoking Status: Never smoker alcohol intake: never substance use type: denies use current occupational status: employed Travel in the last 8 weeks: None household members: spouse and family housing: house caffeine: Yes Other Medical History Have you received the Flu Vaccine for this season: No Have you received the Pneumonia Vaccine: No Review of Systems Review of Systems Review of systems (narrative): Negative *Cardiovascular Comments: Negative *Gastrointestinal Comments: Negative *Genitourinary Comments: Negative *Musculoskeletal Comments: Negative *Neurologic Comments: Negative Meds Home Medications and Allergies Home Medications ?Medication ?Instructions ?Recorded ?Confirmed ?Type amlodipine 2.5 mg tablet 2.5 mg PO DAILY High blood pressure 07/22/22 06/27/24 History pravastatin 10 mg tablet 10 mg PO DAILY 12/29/22 06/27/24 History citalopram 10 mg tablet 10 mg PO DAILY 01/12/23 06/27/24 History cholecalciferol (vitamin D3) 25 See Rx Instructions .Route 06/02/23 06/27/24 Rx mcg (1,000 unit) tablet .COMPLEX #90 tabs loratadine 10 mg tablet See Rx Instructions .Route 06/29/23 06/27/24 Rx .COMPLEX #30 tabs aspirin 81 mg tablet,delayed 81 mg PO DAILY #100 tabs 02/29/24 06/27/24 Rx release prasterone (dhea) 6.5 mg vaginal 6.5 mg vaginal HS 30 days #28 ea 05/21/24 06/27/24 Rx insert ([facility]) estradiol 0.01% (0.1 mg/gram) See Rx Instructions vaginal 05/22/24 06/27/24 Rx vaginal cream .COMPLEX #42.5 grams clindamycin phosphate 2 % vaginal 1 appful vaginal DAILY 7 days #40 06/01/24 06/27/24 Rx cream grams New Prescriptions to Start Prescriptions: Allergies Allergy/AdvReac Type Severity Reaction Status Date / Time No Known Allergies Allergy Verified 06/27/24 07:54 Exam Data for Last 24 hours Vital signs and Labs for Last 24 Hours: Pulse Resp BP Pulse Ox O2 Del Method 68 18 141/92 H 98 Room Air 06/27/24 07:55 06/27/24 07:55 06/27/24 07:55 06/27/24 07:55 06/27/24 07:55 Laboratory Results - last 24 hr 06/27/24 07:55: Serum HCG, Qual Negative *Routine HEENT Exam Head: Present normocephalic Eye: Present EOMI and PERRL ENT: Present mucous membranes moist *Routine Neck Exam Neck: Present supple *Routine Respiratory Exam Respiratory: Present CTA bilaterally *Routine Cardiovascular Exam Cardiovascular: Present RRR *Routine Abdominal Exam Abdominal: Present soft and normoactive bowel sounds; Absent tenderness *Routine Rectal Exam Rectal:: deferred *Routine Genitalia Exam Genitalia:: deferred *Routine Extremities Exam Extremities: Absent cyanosis, clubbing or edema *Routine Skin Exam Skin: Present warm; Absent rash *Routine Neurological Exam Neurological: Present alert and oriented X3 Assessment and Plan *Assessment and plan (1) Screening for colon cancer: Status: Acute Category: Medical Code(s): Z12.11 - Encounter for screening for malignant neoplasm of colon Plan A/P: 1. Screening colonoscopy is the preprocedural diagnosis. The patient will be anesthetized/sedated using MAC sedation. The patient has been seen and examined. Cardiac and lung assessment prior to the examination is stable. Proceed with planned colonoscopy
[2024-06-27 08:32] VITALS: O2SAT 100
--- NOTE | 2024-06-27 08:52 | P.PCN_ITS ---
[facility] Procedure Note Date: 06/27/24 Time: 08:52 Procedure Note:: Colonoscopy Procedure Report: Colonoscopy with cold snare polypectomy and cold biopsies Endoscopist: Manjeet Drummond II, MD Referring physician: WANDA Francisco Date of Procedure: June 27, 2024 Equipment: Olympus 190 variable stiffness pediatric colonoscope Sedation: MAC sedation Indication: Mrs. Walker is a 49-year-old female who is here for initial screening colonoscopy. She reports no weight loss, change in her bowel habits or rectal bleeding. She reports no family history of colon cancer. Her father had colon polyps. The patient did have a small 12 mm mass in the upper pole of the left kidney. She has seen urology. She is previously had cholecystectomy. She does get some intermittent right upper quadrant abdominal discomfort often relieved by lifting her arm or sitting more upright. She has mild gassiness and bloating. Procedure: Prior to the procedure, a history and physical exam was performed, and patient's medications and allergies were reviewed. The risks, benefits and alternatives of the sedation and procedure were discussed with the patient. All questions were answered and informed consent was obtained. The patient was brought to the procedure room. Patient identification and proposed procedure were verified by the physician and the nurse. The patient was placed in a left lateral decubitus position and the scope was passed under direct vision. Throughout the procedure , the patient's blood pressure, pulse, and oxygen saturations were monitored continuously. The colonoscopy was accomplished without difficulty. The patient tolerated the procedure well. Findings: On digital rectal examination there was normal rectal tone. There were no external hemorrhoids. The colonoscope was introduced through the anal canal to the rectum and advanced to the cecum. The ileocecal valve and appendiceal orifice were identified. The scope was advanced a short distance into the ileum which appeared grossly normal. There was mild benign lymphoid nodular hyperplasia of the ileum and a biopsy was obtained. The scope was then withdrawn into the colon. The cecum, ascending and transverse colon and mucosa were grossly normal. There were 3 diminutive polyps (descending x 2 (3 and 4 mm) and sigmoid x 1 (4 mm)). These were all removed via cold snare polypectomy. There were scattered diverticuli throughout the descending and sigmoid colon (LEFT colon). The rectum itself was normal. Upon retroflexion within the rectum there were grade 1-2 internal hemorrhoids. The preparation was excellent throughout with [place] Preparation Score of 9. The cecal time was 12 minutes. Impression: 1. Diminutive colonic polyps x 3 2. Left-sided diverticulosis 3. Grade 1-2 internal hemorrhoids Plan: I will follow-up the polyp histology and recommend repeat surveillance colonoscopy again in 5 to 7 years. I would encourage psyllium fiber supplementation on a maintenance basis. I did review the patient's CAT scans from April 2023 and again the most recent on June 04, 2024. There is a small 9 mm hepatic cyst. This was stable since her former CAT scan from January 2023.
[2024-06-27 08:55] VITALS: BP 175/78; PULSE 89; RESP 18; TEMP 36.6; O2SAT 95
[2024-06-27 09:05] VITALS: BP 188/62; PULSE 76; RESP 18; O2SAT 93
[2024-06-27 09:15] VITALS: BP 106/60; PULSE 69; RESP 18; O2SAT 97
[2024-06-27 09:25] VITALS: BP 127/68; PULSE 78; RESP 18; O2SAT 98
== END 2024-06-27 09:25 | disposition home or self-care (01) ==
PROVIDERS: PCP Nurse Practitioner Family; Visit Provider Internal Medicine Gastroenterology
PROC: (CPT 45380; principal; 2024-06-27 09:00)
DX: Z12.11 Encounter for screening for malignant neoplasm of colon (principal); K63.5 Polyp of colon; K57.30 Diverticulosis of large intestine without perforation or abscess without bleeding; K64.8 Other hemorrhoids
CPT/HCPCS: 45380; 45385; 84703; J2704; J7120

== ENCOUNTER 2024-07-30 15:30 | Outpatient (CLI) | payer MEDICAID, SELFPAY ==
[2024-07-30 15:22] LABS: Microscopic, Urine URINE MICROSCOPIC (MICROSCOPIC)
[2024-07-30 15:29] LABS: Appearance,Urine CLEAR (Clear); Bilirubin,Urine Negative (Negative); Blood, Urine 1+ (Negative); Color,Urine YELLOW (Yellow); Glucose,Urine (UA) Negative (Negative); Ketones,Urine Negative (Negative); Leukocyte Esterase,Urine 2+ (Negative); Nitrate,Urine Negative (Negative); Protein,Urine Negative (Negative); Specific Gravity, Urine 1.025 (1.005-1.030); Urobilinogen,Urine 0.2 EU/dl (0.2)
[2024-07-30 16:13] LABS: Bacteria,Urine 4+ /lpf; Mucus,Urine 2+ /lpf; Squamous Epithelial Cell,Urine 50-100 #/hpf (0-5); WBC,Urine 20-50 #/hpf (0-3)
[2024-08-06 11:08] LABS: Atopobium vaginae High - 2 Score (.); BVAB2 Low - 0 Score (.); Candida albicans NAA Negative (Negative); Candida glabrata Negative (Negative); Chlamydia Trachomatis NAA Negative (Negative); HSV 1 NAA Negative (Negative); HSV 2 NAA Negative (Negative); Megasphaera 1 High - 2 Score (.); Neisseria gonorrhoeae NAA Negative (Negative); Trich vag NAA Negative (Negative)
== END 2024-07-30 23:59 | disposition home or self-care (01) ==
LOC: LAB.DROPOF 15:30
PROVIDERS: PCP Urology; Visit Provider Urology
DX: R31.9 Hematuria, unspecified (principal); N76.0 Acute vaginitis
CPT/HCPCS: 81001; 87086; 87491; 87529; 87591; 87661; 87798; 87801

== ENCOUNTER 2024-10-22 16:26 | Outpatient (CLI) | payer MEDICAID, SELFPAY ==
[2024-10-22 15:06] LABS: Microscopic, Urine URINE MICROSCOPIC (MICROSCOPIC)
[2024-10-22 16:20] LABS: Appearance,Urine Cloudy (Clear); Color,Urine Yellow (Yellow); Glucose,Urine (UA) Negative (Negative); Ketones,Urine Negative (Negative); PH,Urine 5.5 (5.0-8.5); Protein,Urine 1+ (Negative); Specific Gravity, Urine 1.026 (1.005-1.030)
[2024-10-22 16:21] LABS: Bacteria,Urine 2+ /lpf; Bilirubin,Urine Negative (Negative); Blood, Urine 2+ (Negative); Leukocyte Esterase,Urine 3+ (Negative); Nitrate,Urine Negative (Negative); Urobilinogen,Urine 0.2 EU/dl (0.2); WBC,Urine 50-100 #/hpf (0-3)
== END 2024-10-22 23:59 | disposition home or self-care (01) ==
LOC: LAB.DROPOF 16:27
PROVIDERS: PCP Urology; Visit Provider Urology
DX: N39.0 Urinary tract infection, site not specified (principal); R31.9 Hematuria, unspecified
CPT/HCPCS: 81001; 87086

== ENCOUNTER 2024-10-29 11:00 | Outpatient (CLI) | payer MEDICAID, SELFPAY ==
[2024-10-29 15:10] LABS: Microscopic,Cath URINE MICROSCOPIC (MICROSCOPIC)
[2024-10-29 16:02] LABS: Appearance,Urine/Cath CLEAR (Clear); Bilirubin,Cath Negative (Negative); Blood, Urine/Cath SMALL (Negative); Color,Urine/Cath YELLOW (Yellow); Glucose,Urine/Cath (UA) Negative (Negative); Ketones,Urine/Cath Negative (Negative); Leukocyte Esterase,Cath Negative (Negative); Nitrate,Cath Negative (Negative); PH,Urine/Cath 6.5 (5.0-8.5); Protein,Urine/Cath Negative (Negative); Specific Gravity, Urine/Cath 1.025 (1.005-1.030); Urobilinogen,Cath 0.2 EU/dl (0.2)
[2024-10-29 16:18] LABS: Bacteria,Urine/Cath 1+ /lpf; Squamous Epithelial Ur./Cath Occasional #/hpf (0-5); WBC,Urine/Cath Occasional #/hpf (0-3)
[2024-11-02 15:26] LABS: Atopobium vaginae Moderate - 1 Score (.); BVAB2 Low - 0 Score (.); Candida albicans NAA Negative (Negative); Candida glabrata Negative (Negative); Chlamydia Trachomatis NAA Negative (Negative); HSV 1 NAA Negative (Negative); HSV 2 NAA Negative (Negative); Megasphaera 1 Low - 0 Score (.); Neisseria gonorrhoeae NAA Negative (Negative); Trich vag NAA Negative (Negative)
== END 2024-10-29 23:59 | disposition home or self-care (01) ==
LOC: LAB.DROPOF 10-30 13:08
PROVIDERS: PCP Urology; Visit Provider Urology
DX: R31.9 Hematuria, unspecified (principal); N28.1 Cyst of kidney, acquired; N89.8 Other specified noninflammatory disorders of vagina
CPT/HCPCS: 81001; 87086; 87491; 87529; 87591; 87661; 87798; 87801

== ENCOUNTER 2024-10-30 10:03 | Outpatient (CLI) | payer MEDICAID, SELFPAY ==
--- NOTE | 2024-10-30 10:08 | CT_ITS ---
FINAL REPORT TECHNIQUE: Thin section axial images were obtained from the lung apices through the upper abdomen without contrast. This study was performed with techniques to keep radiation doses as low as reasonably achievable (ALARA). Individualized dose reduction techniques using automated exposure control or adjustment of mA and/or kV according to the patient's size were employed. CLINICAL HISTORY: 12-month follow-up, nodule COMPARISON: 03/13/2024 FINDINGS: There are mildly prominent mediastinal lymph nodes which are unchanged. There is no hilar or axillary lymphadenopathy. No pleural or pericardial effusion. There are multiple bilateral noncalcified pulmonary nodules. A nodule in the right upper lobe measuring 8 mm on image 18 is unchanged. An additional index lesion in the right middle lobe on image 45 measures 11 mm, previously was 10 mm. Remaining nodules are stable. No new mass or nodule is seen. There are no areas of consolidation. Limited imaging of the upper abdomen demonstrates a small hypodense lesion in the posterior right hepatic lobe which is unchanged and represent a cyst. Previously seen left renal lesion is not identified on these noncontrast images. There is no acute osseous abnormality. IMPRESSION: Stable, bilateral noncalcified pulmonary nodules. Stable prominent mediastinal lymph nodes. Stable right hepatic lobe lesion. Reviewed, Interpreted and Dictated by Georgina Fountain MD Transcribed by Anne Marie Floyd Authenticated and [facility]
== END 2024-10-30 23:59 | disposition home or self-care (01) ==
LOC: RAD 10:04
PROVIDERS: PCP Nurse Practitioner Family; Visit Provider Internal Medicine Pulmonary Disease
DX: R91.8 Other nonspecific abnormal finding of lung field (principal)
CPT/HCPCS: 71250

== ENCOUNTER 2025-04-22 16:29 | Outpatient (CLI) | payer MEDICAID, SELFPAY ==
[2025-04-22 14:33] LABS: Microscopic, Urine URINE MICROSCOPIC (MICROSCOPIC)
--- OUTSIDE RECORDS SUMMARY | 2025-04-22 16:32 | XMS_ITS | Clinical Summary ---
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 Not on file 06/2023 Does Anyone Keep You from Co ntacting Others or Doint Things Outside the Home? Not on file 05/18/2023 Physical Sign of Abuse Present Not on file 1 Housing Stability Answer Date Recorded Current Living Arrangements Not on file 05/08 Potentially Unsafe Housing Conditions Not on jessica e 05/18/2023 Family and Community Support Answer Ishan e Recorded Help with Day-to-Day Activities Not on file 05/18/2023 Lonely or Isolated Not on file 05/18/2023 Employment Answer Date Recorded Do you want help finding or keeping work or a keaton b? Not on file 05/18/2023 Disabilities Answer Date Recorded Concentrating, Remembering, or Making Decisions Difficulty Not on file 05/18/2023 Doing Errands Independently Difficulty Not on fi le 05/18/2023 Education Answer Date Recorded Help with school or training? Not on file Preferred Language Not on file 05/18/2023 Comments No Sex and Gender Information Value Date Recorded Sex Assigned at Not on file Legal Sex Female 9:55 AM EST Gender Identity Not on file Sexual Orientation Not on file Plan of Treatment Health Maintenance Due Date Last Done Comments ANNUAL PHYSICAL 1975 Annual Gynecologic Pelvic and Breast Exam 1975 HEPATITIS C SCREENING 1977 TDAP/TD VACCINES (1 - Tdap) 1996 MAMMOGRAM 05/15/2021 05/15/2019, 09/09, 02/15/2017, Additional history exists COLOGUARD 2022 COLON CANCER SCREENING 5 YEAR SIGMOIDOSCOPY 2022 COLONOSCOPY 20[address] SCREENING [address] COLONOGRAPHY 2022 FECAL OCCULT BLOOD TEST 2022 FIT Testing (1 year) 2022 COVID-19 Vaccine ( season) 2025 INFLUENZA VACCINE 05/08/2025 Pneumococcal Vaccine 0-49 Aged Out No longer eligible based on patient's age to complete this topic Procedures Procedure Name Priority Date/Time Associated Diagnosis Comments MAMMO DIAGNOSTIC DIGITAL TOMOSYNTHESIS BILATERAL W CAD Routine 05/15/2019 9:47 AM EDT Abnormal mammogram from Last 3 Months or Most Recently Relevant to Health Maintenance Results * Mammo Diagnostic Digital Tomosynthesis Bilateral With CAD (05/15/2019 9:47 AM EDT) Anatomical Region Laterality Modality Breast Bilateral Mammography 05/15/2019 10:4 6 AM EDT Impressions 05/15/2019 11:53 AM EDT BI-RADS CATEGORY 2, BENIGN FINDINGS. RECOMMENDATION: Routine annual screening mammography in one year unless clinically indicated sooner. CAD was utilized. The standard false-negative rate of mammography is between 10% and 25%. Complex patterns or increased breast density will markedly elevate the false-negative rate of mammography. A results letter, in lay terminology, will be given to the patient at the conclusion of the exam. This report was finalized on 05/15/2019 11:[address] Salma Ma MD. Narrative 05/15/2019 11:53 AM EDT DIAGNOSTIC BILATERAL MAMMOGRAM AND TARGETED RIGHT BREAST ULTRASOUND-05/15/2019: HISTORY: 12-month mammographic followup for probable benign findings in the left breast. TECHNIQUE: Combination 2-D/3-D standard views of both breasts as well as targeted right breast ultrasound. COMPARISON: Comparison is made to prior mammograms dating back to 06/18/2016. FINDINGS: The breast tissue is extremely dense which can obscure small masses on mammography. No suspicious masses, microcalcifications or areas of architectural distortion are identified. An oval mass appeared more prominent in the upper outer quadrant of the right breast. Targeted right breast ultrasound demonstrated multiple simple cysts and microcysts in the upper outer quadrant. No suspicious masses are identified. us Garfield Webber MD IMG MAMMOGRAPHY ORDERABLES Fi nal Result from Last 3 Months or Most Recently Relevant to Health Maintenance Insurance [facility] Care Teams Tractor Sweeper Operator Relationship Specialty Start Date End Date Luba Soto PA PCP - General Physician Chess Instructor 07/16/16
[2025-04-22 19:32] LABS: Bilirubin,Urine Negative (Negative); Color,Urine YELLOW (Yellow); Glucose,Urine (UA) Negative (Negative); Ketones,Urine Negative (Negative); Leukocyte Esterase,Urine 2+ (Negative); PH,Urine 6.5 (5.0-8.5); Protein,Urine 1+ (Negative); Specific Gravity, Urine 1.025 (1.005-1.030); Urobilinogen,Urine 1.0 EU/dl (0.2)
[2025-04-22 19:51] LABS: Amorphous Sediment,Urine 1+ /lpf; Bacteria,Urine 3+ /lpf
== END 2025-04-22 23:59 | disposition home or self-care (01) ==
LOC: LAB.DROPOF 16:29
PROVIDERS: PCP Urology; Visit Provider Urology
DX: R31.9 Hematuria, unspecified (principal)
CPT/HCPCS: 81001; 87086